=== PATIENT | male | born 1990 | race Caucasian/White ===

== ENCOUNTER 2017-08-20 09:32 | Inpatient (IN) | payer BC ==
--- NOTE | 2017-08-14 17:15 | Pre-op HX & Phy Repo 2 SIG ---
DATE OF ADMISSION: 08/20/2017 HISTORY: The patient is a 26-year-old male in overall good health with a malfunctioning Gladys ileostomy. The patient developed ulcerative colitis at age 16 in approximately 2006. In 2013, he underwent total colectomy with ileoanal J-pouch procedure in three stages. He had failed all medications to try and resolve his ulcerative colitis. With the J-pouch he had chronic severe pouchitis and on 11/14/2016 at [facility] underwent laparotomy with resection of his J-pouch and creation of a Gladys ileostomy. The preoperative diagnosis was Crohn's disease of the pouch, but pathology report clearly stated there was no evidence for Crohn's disease and that the diagnosis was chronic active pouchitis. The entire small intestine was normal at that surgery. The patient has been having marked difficulty dealing with his ileostomy despite working with [facility] nurses. He has frequent episodes of leaks with breaking of the seal. He feels very isolated having to deal with this problem. The patient is a good candidate to undergo surgery to convert his malfunctioning conventional ileostomy to a Stoll continent intestinal reservoir. PAST MEDICAL HISTORY: MEDICATIONS: None. ALLERGIES: Morphine causes rash, Lomotil, fentanyl, and Toradol. OPERATIONS: In addition to the above, he has undergone tonsillectomy. REVIEW OF SYSTEMS: The patient has a history of panic attacks in the past. PHYSICAL EXAMINATION: GENERAL: He is 5 feet 11 inches, 170 pounds. He is arriving from out of town and will be examined upon arrival and dictated separately. IMPRESSION: 1. Malfunctioning Gladys ileostomy. 2. History of ulcerative colitis. 3. Status post multiple abdominal operations. 3.1. Total colectomy with ileoanal J-pouch in 2013 with temporary ileostomy for one year before closure. 3.2. Resection of failed J-pouch with abdominoperineal proctectomy and creation of Gladys ileostomy november 14, 2016 3.3. Laparotomy with abdominal washout and evacuation of rectus hematoma from drain placed at 11/14/2016 surgery with this operation performed on 11/21/2016. The drain had penetrated a branch of the inferior epigastric artery and bled when it was removed. PLAN: The patient will be admitted and undergo insertion of a dual lumen PICC line, bowel prep with concomitant intravenous hydration and preparation for surgery with intravenous antibiotics started the night before surgery and preoperative subcutaneous heparin. I have had a full discussion with the patient regarding the nature of the surgery including creation of a Stoll continent intestinal reservoir with temporary catheter gastrostomy, indications, alternatives, options, and risks. I have discussed the general risks of surgery including bleeding, infection, adhesions that could lead to bowel obstruction requiring additional surgery, injury to adjacent structures or organs, deep vein thrombosis despite prophylaxis, anesthetic reactions, etc. I have also discussed the specific risks of the Stoll procedure including the risk of slipped valve or fistula of pouch or valve or other issues with the pouch or stoma that could require revision surgery. I will have another detailed discussion in person when the patient arrives from out of town and all questions will be answered. Rolando Webb M.D. DR: SARA JOB#: [id number] CC: MARIZA
[~2017-08-20] VITALS: Ht 180.3 cm; Wt 77.1 kg
[2017-08-20 10:07] VITALS: BP 124/82
[2017-08-20 11:02] LABS: BASOPHILS % (AUTO) 1.1 % (0.0-2.0); EOSINOPHILS % (AUTO) 3.2 % (0.0-3.0); HEMATOCRIT 35.5 % (42.0-52.0); HEMOGLOBIN 11.5 G/DL (14.2-18.0); LYMPHOCYTES % (AUTO) 22.7 % (20.0-45.0); MEAN CORPUSCULAR VOLUME 87 FL (80-99); MONOCYTES % (AUTO) 7.2 % (1.0-10.0); NEUTROPHILS % (AUTO) 65.7 % (45.0-75.0); PLATELET COUNT 314 K/UL (150-450); RED CELL DISTRIBUTION WIDTH 13.2 % (11.6-14.8); WHITE BLOOD COUNT 5.8 K/UL (4.8-10.8)
[2017-08-20 11:12] LABS: ANION GAP 7 mmol/L (5-15); BLOOD UREA NITROGEN 7 mg/dL (7-18); CALCIUM 8.9 MG/DL (8.5-10.1); CARBON DIOXIDE 28 MMOL/L (21-32); CHLORIDE 105 MMOL/L (98-107); CREATININE 0.8 MG/DL (0.55-1.30); POTASSIUM 3.7 MMOL/L (3.5-5.1); SODIUM 139 MMOL/L (136-145)
[2017-08-20 11:22] LABS: INR 0.9 (0.9-1.1)
[2017-08-20 11:31] LABS: ALANINE AMINOTRANSFERASE 93 U/L (12-78); ALBUMIN 3.7 G/DL (3.4-5.0); ALBUMIN/GLOBULIN RATIO 1.2 (1.0-2.7); ALKALINE PHOSPHATASE 118 U/L (46-116); ASPARTATE AMINO TRANSFERASE 39 U/L (15-37); BILIRUBIN,TOTAL 0.3 MG/DL (0.2-1.0); FERRITIN 9 NG/ML (8-388)
[2017-08-20 11:42] VITALS: BP 114/80
[2017-08-20 11:43] LABS: % IRON SATURATION 7 % (15-50); IRON 30 ug/dL (50-175); TOTAL IRON BINDING CAPACITY 432 ug/dL (250-450)
[2017-08-20] MEDS: Neomycin Sulfate 500mg Tab ORAL SCH ×3 (11:57→19:57)
[2017-08-20] MEDS ORDERED: Heparin 2000 units/Ns 1000ml IV SCH (12:00)
[2017-08-20] MEDS ORDERED: Lidocaine 1% Plain 30 ml INJ SCH (12:00)
--- NOTE | 2017-08-20 12:43 | Anethesia Preoperative Eval ---
Anesthesia Pre-op PMH/ROS General Date of Evaluation: August 20, 2017 Time of Evaluation: 14:40 Anesthesiologist: Tommie ASA Score: ASA 2 Mallampati Score Class I : Soft palate, uvula, fauces, pillars visible Class II: Soft palate, uvula, fauces visible Class III: Soft palate, base of uvula visible Class IV: Only hard plate visible Mallampati Classification: Class I Surgeon: Jon Diagnosis: Failed Gladys Ileostomy Surgical Procedure: Stoll Cntinent Ileostomy Anesthesia History: none Family History: no anesthesia problems Allergies: Coded Allergies: ATROPINE (Verified Allergy, Unknown, 08/20/17) DIPHENOXYLATE (Verified Allergy, Unknown, 08/20/17) FENTANYL (Verified Allergy, Unknown, 08/20/17) KETOROLAC (Verified Allergy, Unknown, 08/20/17) MORPHINE (Verified Adverse Reaction, Unknown, rash, 08/20/17) Medications: see eMAR Past Medical History Gastrointestinal/Genitourinary: Reports: other - Crohns Disease, Colitis Hematology/Immune: Reports: anemia PSxH Narrative: 1. Malfunctioning Gladys ileostomy. 2. History of ulcerative colitis. 3. Status post multiple abdominal operations. 3.1. Total colectomy with ileoanal J-pouch in 2013. 3.2. Resection of failed J-pouch with abdominoperineal proctectomy and creation of Gladys ileostomy. The proximal small bowel was normal. 3.3. Laparotomy with abdominal washout and evacuation of rectus hematoma from drain placed at 11/14/2016 surgery with this operation performed on 11/21/2016. The drain had penetrated a branch of the inferior epigastric artery. Anesthesia Pre-op Phys. Exam Physician Exam Last Vital Signs Date Time Temp Pulse Resp B/P (MAP) Pulse Ox O2 Delivery O2 Flow Rate FiO2 08/20/17 11:42 97.7 72 16 114/80 97.7 08/20/17 10:07 100 Room Air Constitutional: NAD Neurologic: CN 2-12 intact Cardiovascular: RRR Respiratory: CTA Gastrointestinal: S/NT/ND Airway Exam Mallampati Score: Class I MO: full ROM: full Teeth: intact Anesthesia Pre-op A/P Labs Hematology Test 08/20/17 10:35 White Blood Count 5.8 K/UL (4.8-10.8) Red Blood Count 4.10 M/UL (4.70-6.10) L Hemoglobin 11.5 G/DL (14.2-18.0) L Hematocrit 35.5 % (42.0-52.0) L Mean Corpuscular Volume 87 FL (80-99) Mean Corpuscular Hemoglobin 28.1 PG (27.0-31.0) Mean Corpuscular Hemoglobin Concent 32.5 G/DL (32.0-36.0) Red Cell Distribution Width 13.2 % (11.6-14.8) Platelet Count 314 K/UL (150-450) Mean Platelet Volume 7.0 FL (6.5-10.1) Neutrophils (%) (Auto) 65.7 % (45.0-75.0) Lymphocytes (%) (Auto) 22.7 % (20.0-45.0) Monocytes (%) (Auto) 7.2 % (1.0-10.0) Eosinophils (%) (Auto) 3.2 % (0.0-3.0) H Basophils (%) (Auto) 1.1 % (0.0-2.0) Coagulation Test 08/20/17 10:35 Prothrombin Time 9.5 SEC (9.30-11.50) Prothromb Time International Ratio 0.9 (0.9-1.1) Activated Partial Thromboplast Time 25 SEC (23-33) Chemistry Test 08/20/17 10:35 Sodium Level 139 MMOL/L (136-145) Potassium Level 3.7 MMOL/L (3.5-5.1) Chloride Level 105 MMOL/L (98-107) Carbon Dioxide Level 28 MMOL/L (21-32) Anion Gap 7 mmol/L (5-15) Blood Urea Nitrogen 7 mg/dL (7-18) Creatinine 0.8 MG/DL (0.55-1.30) Estimat Glomerular Filtration Rate > 60 mL/min (>60) Glucose Level 98 MG/DL (74-106) Calcium Level 8.9 MG/DL (8.5-10.1) Iron Level 30 ug/dL (50-175) L Total Iron Binding Capacity 432 ug/dL (250-450) Percent Iron Saturation 7 % (15-50) L Unsaturated Iron Binding 402 ug/dL (112-346) H Ferritin 9 NG/ML (8-388) Total Bilirubin 0.3 MG/DL (0.2-1.0) Aspartate Amino Transf (AST/SGOT) 39 U/L (15-37) H Alanine Aminotransferase (ALT/SGPT) 93 U/L (12-78) H Alkaline Phosphatase 118 U/L (46-116) H Total Protein 6.9 G/DL (6.4-8.2) Albumin 3.7 G/DL (3.4-5.0) Globulin 3.2 g/dL Albumin/Globulin Ratio 1.2 (1.0-2.7) Vitamin B12 Level 385 PG/ML (193-986) Folate 11.3 NG/ML (8.6-58.9) Risk Assessment & Plan Assessment: ASA 2 Plan: GA Status Change Before Surgery: No Pre-Antibiotics Drug: Elian Mcknight MD August 20, 2017 12:43
--- NOTE | 2017-08-20 14:21 | Diagnostic Imaging Report ---
Indication: Cough Comparison: None A single view chest radiograph was obtained. Findings: Cardiomediastinal appearance is within normal limits for age. Pulmonary vascularity is appropriate. The diaphragmatic contour is smooth and costophrenic angles are sharp. No pleural effusions are identified. The bones are unremarkable. Impression: No acute findings
--- NOTE | 2017-08-20 14:26 | Diagnostic Imaging Report ---
Indication: keno terminal operator venous access Findings: After the indications, procedure, risks, complications, and alternatives of the procedure were explained, written informed consent was obtained. The right upper extremity was prepped with alcohol. All elements of maximal sterile barrier technique were followed including usage of a cap, mask, sterile gown, sterile gloves, hand hygiene and a large sterile sheet. Sonographic evaluation of the upper extremity was performed demonstrating a patent and compressible basilic vein. Access was obtained under real-time ultrasound guidance (with utilization of sterile gel and sterile probe cover) and digital image was saved and archived. An .018 wire was introduced. Needle exchanged for a 5 Palestinian peel-away sheath. Measurements were obtained. A 5 Palestinian dual-lumen Power PICC line catheter was cut to 35 cm and introduced over the wire. Peel-away sheath and wire were removed.Catheter was secured to the skin using 2-0 Prolene suture. Both ports aspirate and flush easily. Fluoroscopic images show distal tip in the superior vena cava. Total fluoroscopic time 0.2 minutes. Impression: Successful placement of an upper extremity PICC line catheter
[2017-08-20] MEDS ORDERED: Vitamin B12 1000mcg/ml Inj IM SCH (15:00)
[2017-08-20] MEDS ORDERED: LORazepam 1mg tab SL SCH (15:00)
--- NOTE | 2017-08-20 16:00 | General Progress Note ---
Progress Note Progress Note H&P dictated. Anemic with Hgb 11.5 and iron 30 (50-175), ferritin 30(8-388) B12 385 Folate 11.3 (8.6-58.9). slight elevation of lfts - advised re possible liver biopsy in surgery BMP - wnl with BUN 7 Cr 0.[address] and will start IV hydration now Full discussion with patient and his mother re his allergies and pain control post-op, nature of surgery and risks. All questions answered LAILA HWANG August 20, 2017 16:00
[2017-08-20 16:04] VITALS: BP 121/73
[2017-08-20] MEDS: D5 1/2NS w/KCl 20mEq 1,000 ML IV SCH (16:09)
[2017-08-20 18:50] LABS: APPEARANCE,URINE CLEAR; BILIRUBIN, URINE NEGATIVE (NEGATIVE); COLOR,URINE PALE YELLOW; GLUCOSE, URINE (UA) NEGATIVE (NEGATIVE); KETONES,URINE NEGATIVE (NEGATIVE); LEUKOCYTE ESTERASE ,URINE NEGATIVE (NEGATIVE); NITRITE,URINE NEGATIVE (NEGATIVE); PH,URINE 6 (4.5-8.0); PROTEIN,URINE NEGATIVE (NEGATIVE); UROBILINOGEN,URINE NORMAL MG/DL (0.0-1.0)
[2017-08-20] MEDS: LORazepam 1mg tab SL PRN (19:58)
[2017-08-20] MEDS: Dyna-Hex 2% Top Sol 2oz TOPIC SCH (19:58)
[2017-08-20 20:00] VITALS: BP 126/68
[2017-08-20] MEDS: Zolpidem 5mg tab ORAL PRN (21:08)
[2017-08-21] VITALS (16 sets, daily range): BP systolic 107–160; BP diastolic 57–81
[2017-08-21] MEDS: D5 1/2NS w/KCl 20mEq 1,000 ML IV SCH ×2 (04:31→14:00)
[2017-08-21] MEDS: LORazepam 1mg tab SL PRN ×2 (04:58→16:06)
[2017-08-21] MEDS: Ampicillin/Sulbactam Sod 3 GM in NS 110 ML IV SCH ×6 (05:29→23:58)
[2017-08-21] MEDS ORDERED: Heparin 5000 units/ml inj SUBQ SCH (05:30)
[2017-08-21] MEDS ORDERED: Lidocaine 1% MPF 10mg/ml 5ml ONE (06:58)
[2017-08-21] MEDS ORDERED: Propofol 200mg/20ml IV ONE ×2 (06:58→08:55)
[2017-08-21] MEDS ORDERED: fentaNYL 100 mcg/2 mL IV ONE ×3 (06:59→11:00)
[2017-08-21] MEDS ORDERED: Midazolam 2mg/2ml Inj ONE ×2 (06:59→12:54)
[2017-08-21] MEDS ORDERED: Bacitracin 50000 Units Vial ONE (07:06)
[2017-08-21] MEDS ORDERED: NeoSporin Gu Irrig 1ml Amp IRRIG ONE (07:12)
--- NOTE | 2017-08-21 07:19 | Pre-Procedure Note/Attestation ---
Pre-Procedure Note/Attestation Complete Prior to Procedure Planned Procedure: not applicable Procedure Narrative: Stoll Continent Intestinal [place], gastrostomy Indications for Procedure Pre-Operative Diagnosis: malfunctioning Gladys ileostomy Attestation I attest that I discussed the nature of the procedure; its benefits; risks and complications; and alternatives (and the risks and benefits of such alternatives ), prior to the procedure, with the patient (or the patient's legal claim service representative). I attest that, if there was a reasonable possibility of needing a blood transfusion, the patient (or the patient's legal claim service representative) was given the [facility] standardized written summary, pursuant to the Rk Leida Blood Safety Act ([place] Health and Safety Code # 1645, as amended). I attest that I re-evaluated the patient just prior to the surgery and that there has been no change in the patient's H&P, except as documented below: none LAILA HWANG August 21, 2017 07:19
[2017-08-21] MEDS ORDERED: NS Irrig 1000ml ONE (07:30)
[2017-08-21] MEDS ORDERED: Sterile Water Irrig 1000ml IRRIG ONE (07:30)
[2017-08-21] MEDS ORDERED: LR 1000ml ONE (07:30)
[2017-08-21] MEDS ORDERED: LR 1000ml 1,000 ML IVLG SCH (08:35)
[2017-08-21] MEDS ORDERED: Midazolam 2mg/2ml Inj IVP PRN (08:45)
[2017-08-21] MEDS ORDERED: Meperidine 50mg/ml Inj(FOR RIGORS ONLY) IV PRN (08:45)
[2017-08-21] MEDS ORDERED: DiphenhydrAMINE 50mg/ml Inj IVP PRN ×2 (08:45→13:30)
[2017-08-21] MEDS ORDERED: Acetaminophen (Non formulary) 100 ML IV SCH (08:45)
[2017-08-21] MEDS ORDERED: Zemuron 50mg/5ml Inj IV ONE ×2 (08:56→11:30)
[2017-08-21] MEDS ORDERED: Glycopyrrolate 0.2mg/ml 1ml Vial ONE (09:03)
[2017-08-21] MEDS ORDERED: Sodium Chloride 10ml vial INJ ONE (09:43)
--- NOTE | 2017-08-21 09:46 | Pre-op HX & Phy Repo 2 SIG ---
DATE OF ADMISSION: 08/20/2017 DATE OF EXAMINATION: 08/20/2017 SUBJECTIVE: The patient has now arrived from out of town. Please see previously dictated history. OBJECTIVE: GENERAL: He is well developed and well nourished, in no distress. VITAL SIGNS: Within normal limits. He is 5 feet 11 inches, 170 pounds. HEENT: Within normal limits. LUNGS: Clear. HEART: Regular rhythm. BREASTS: Without masses. ABDOMEN: Soft and flat. There is a midline incision from just above the umbilicus to the pubis with a slightly wide scar and multiple parallel scars on each side from what the patient says were arelis. His stoma of his Gladys ileostomy is higher and more lateral than usual in the right lower quadrant. RECTAL: Status post proctectomy. GENITALIA: Within normal limits. EXTREMITIES: Without edema. Pulses 3+ femoral to pedal bilatera NEUROLOGIC: Physiologic. IMPRESSION: 1. Malfunctioning Gladys ileostomy. 2. History of ulcerative colitis. 3. STATUS POST MULTIPLE ABDOMINAL OPERATIONS: 3.1. Total colectomy with ileoanal J-pouch as a three-stage procedure 2013 3.2. Resection of failed J-pouch with abdominoperineal proctectomy and creation of Gladsy ileostomy, 11/14/2016. 3.3. Laparotomy with abdominal washout and evacuation of rectus hematoma, 11/21/2016. PLAN: I have had another detailed discussion with the patient and his mother regarding the nature of surgery. Indications, alternatives, options and risks and all questions have been answered. The patient understands and agrees to proceed. Rolando Webb M.D. DR: DONAVON JOB#: [id number] CC: MARIZA
--- NOTE | 2017-08-21 13:06 | Immediate Post-Op Evaluation ---
Immediate Post-Op Evalulation Immediate Post-Op Evalulation Procedure: Exploratory laparotomy creation of continent pouch Date of Evaluation: August 21, 2017 Time of Evaluation: 13:04 IV Fluids: 2200 Blood Products: none Estimated Blood Loss: 150 Urinary Output: 250 Blood Pressure Systolic: 141 Blood Pressure Diastolic: 62 Pulse Rate: 78 Respiratory Rate: 22 O2 Sat by Pulse Oximetry: 99 Temperature (Fahrenheit): 98.7 Pain Score (1-10): 3 Nausea: No Vomiting: No Complications none Patient Status: awake, patent, extubated, none Hydration Status: adequate MITCHELL RM M.D. August 21, 2017 13:06
--- NOTE | 2017-08-21 13:14 | Brief Operative Note ---
Immediate Post Operative Note Operative Note Pre-op Diagnosis: malfunctioning Gladys ileostomy Procedure: Stoll continent intestinal reservoir, gastrostomy Post-op Diagnosis: same Post-op Diagnosis: same as pre-op Findings: consistent w/pre-op dx studies Surgeon: mukesh Pick And Shovel Man: derick Anesthesiologist: jaden Anesthesia: general Specimen: yes - ileostomy stoma, bowel trimmings Complications: none Condition: stable Fluids: see anesthesia record Estimated Blood Loss: volume - 150cc Drains: other - 28 Stoll pouch, 18 gastrostomy, 1/2 inch david Implant(s) used?: No LAILA HWANG August 21, 2017 13:14
[2017-08-21] MEDS: PCA Morphine 1mg/ml 30 ML IV PRN ×2 (13:25→17:05)
[2017-08-21] MEDS ORDERED: Rate Change PCA 1 Each MISC PRN (13:30)
[2017-08-21] MEDS ORDERED: Naloxone 0.4mg/ml Inj IVP PRN (13:30)
[2017-08-21] MEDS ORDERED: Meperidine 50mg/ml Inj(FOR RIGORS ONLY) ONE (14:07)
[2017-08-21] MEDS: D5 1/4NS w/KCl 20mEq 1,000 ML IV SCH ×2 (15:57→23:58)
--- NOTE | 2017-08-21 16:03 | General Progress Note ---
Progress Note Progress Note Awake and alert, c/o pain despite MS SOUND EFFECTS PERSON - due for next dose of IV Tylenol 1gm q8h x 3 days in 1 hour VSS with mild tachycardia Dressing dry Catheters patent Imp: LAILA Hopkins August 21, 2017 16:03
[2017-08-21] MEDS ORDERED: PCA Education Pamphlet MISC SCH (17:00)
[2017-08-21] MEDS: Acetaminophen (Non formulary) 100 ML IV SCH (17:14)
[2017-08-21] MEDS ORDERED: Morphine Sulfate 4mg/ml Inj SUBQ PRN (18:30)
[2017-08-21] MEDS ORDERED: Tubing IV Secondary IV ONE (18:53)
[2017-08-21] MEDS: PCA shift volume MISC SCH (19:23)
--- NOTE | 2017-08-21 19:30 | Operative Note - Dictated ---
DATE OF OPERATION: 08/21/2017 SURGEON: Rolando Webb M.D. TALCER SURGEON: Carrillo Neal M.D. ANESTHESIOLOGIST: Harpreet Dubon M.D. TYPE OF ANESTHESIA: General endotracheal. PREOPERATIVE DIAGNOSES: 1. Malfunctioning Gladys ileostomy. 2. History of ulcerative colitis. 3. Status post multiple abdominal operations. 3.1. Total colectomy with ileoanal J-pouch in 2013 as a 3-stage procedure over 1 year. 3.2. Resection of failed J-pouch with abdominoperineal proctectomy and creation of Gladys ileostomy on November 14, 2016 at [facility] 3.3. Laparotomy with abdominal washout and evacuation of rectus hematoma related to drain site bleeding on November 21, 2016 at [facility] POSTOPERATIVE DIAGNOSES: 1. Malfunctioning Gladys ileostomy. 2. History of ulcerative colitis. 3. Status post multiple abdominal operations. 3.1. Total colectomy with ileoanal J-pouch in 2013 as a 3-stage procedure over 1 year. 3.2. Resection of failed J-pouch with abdominoperineal proctectomy and creation of Gladys ileostomy on November 14, 2016 at [facility] 3.3. Laparotomy with abdominal washout and evacuation of rectus hematoma related to drain site bleeding on November 21, 2016 at [facility] OPERATION PERFORMED: Stoll continent intestinal reservoir and temporary catheter gastrostomy. DESCRIPTION OF PROCEDURE: The patient was taken to the operating room and under general endotracheal anesthesia with sequential compression device stockings and De Leon catheter in place and having received intravenous antibiotics and preoperative subcutaneous heparin, the patient was prepped and draped in the usual fashion. Previous midline incision was reopened from above the umbilicus to the pubis excising part of the scar that was wide. There were only mild adhesions to the undersurface of the abdominal wall from an omental remnant that was left in place and from small bowel loops. the omental remnant was mobilized from the pelvis and some of it resected ligating with #0 silk. The bowel loops were all then mobilized out of the pelvis without difficulty leading to the ileostomy which was above the level of the umbilicus and lateral to the rectus sheath on the right side of the abdomen. Palpating just inferior to the stoma and the undersurface of the abdominal wall, there was obvious retained mesh placed likely at the time of ileostomy creation. It was completely incorporated and just inferior to the stoma itself, and it was left in situ. The small bowel was run from the stoma to the ligament of Treitz and all adhesions taken down. The bowel was completely normal and he had an abundance of small bowel loops of both jejunum and ileum. The ileostomy was dismantled with a transversely oriented elliptical incision and brought into the abdominal cavity. The fascia was closed with interrupted inverted #0 Prolene in transverse orientation and then a Betadine-soaked Ray-Za placed into the subcutaneous tissues. Tracing the bowel proximal from the stoma approximately 1.5 to 2 feet was a Meckel's diverticulum with a very wide opening that had been left in place by all those previous surgeons and there was no indication to remove it. Proximal to that was an enteroenterostomy from prior surgery. Both these factors meant that we could not create the Stoll pouch from the most distal ileum. I went proximal to the prior enteroenterostomy and divided the bowel at that point with the distal end subsequently to be anastomosed to the proximal small bowel after the pouch was created and the distal part where the ileostomy was, to be attached to the pouch enterotomy. Now having divided the bowel and creating what would be the end of the collar segment, the JENNIFER staple line was imbricated with 3-0 silk. 12 cm proximal was marked for the collar segment. Then 15 cm proximal to this was marked for the pouch. Then two adjacent 15-cm loops of small bowel were placed side by side and with appropriately located enterotomies, using the JENNIFER 75 with several applications, the ileal reservoir was created. The staple line was everted and one defect was closed with continuous locking 2-0 chromic followed by imbricating 3-0 silk. The mucosal aspect was carefully inspected and bleeders were controlled with medium Hemoclips and cautery and some 3-0 silk [id number] suture ligatures. A 3-0 silk was placed at the apex of the pouch staple line. Then a chromic marker was placed at the junction of the afferent bowel and the pouch, and 12 cm proximal marked for the valve segment. A 2-fingerbreadth mesenteric hiatus was created here ligating vessels with 3-0 silk. The abdominal wall thickness measured 4 cm. The appropriate length access segment was measured and marked and preserving two good vessels to the access segment, the bowel was divided proximal with the JENNIFER stapling device and the mesentery divided to its base ligating vessels with 3-0 silk. Now, the staple line that was to become the stoma was excised and attention directed to creating the nipple valve. The peritoneum was stripped on each side of the valve segment mesentery and the serosa scarified with cautery. Then with gradual intussusception, a 5.0 cm long valve was created with orientation confirmed with the Stroud suction. Using the PI 55 stapling device with 4.8 mm arelis, two rows were placed 90 degrees away from the mesentery on each side. 3-0 silk sutures were placed between the access segment and the pouch on each side of its mesentery and then the PI 55 stapling device was fired again to staple the valve to the anterior pouch wall. Additional 3-0 silk sutures were placed between the access segment and the pouch. The end of the collar was brought through the mesenteric hiatus and wrapped around the outside of the valve segment with the collar sutured to the access segment, to itself, and to the pouch with multiple interrupted 3-0 silk sutures. Now, the prior ileostomy was excised dividing the 3cm long segment of bowel with the JENNIFER stapling device ligating mesentery vessels with 3-0 silk and 3-0 Vicryl. Intestinal continuity was restored between the proximal bowel and the proximal end of the segment with the enteroenterostomy and Meckel diverticulum. A JENNIFER stapled [id number], functional end-to-end anastomosis was created closing the enterotomy with the JENNIFER. The mesenteric defect was closed with 3-0 silk. Now the distal-most bowel ending in the original ileostomy which had been excised was placed adjacent to the pouch enterotomy with a very short blind end. A [id number] anastomosis was created with an outer layer posteriorly of interrupted 3-0 silk, then the proximal bowel opened and then full-thickness 2-0 chromic continuous locking suture, completing the anastomosis with an outer layer of 3-0 silk. The end of the collar and the end of this bowel loop were sutured together with 3-0 silk. A 28-Rwandan De Leon catheter went directly into the pouch and the afferent bowel was manually occluded. The pouch was distended with 120 mL of saline. Upon removal of the catheter, the pouch was seen to be completely continent. The catheter was reintroduced and the pouch decompressed. The operative field was carefully inspected and hemostasis was secured. The liver and gallbladder were normal to inspection and palpation. The bladder and ureters were protected throughout the procedure. The pouch lay nicely in the pelvis with the small bowel loops replaced anatomically. At a previously marked site low in the right lower quadrant, a 2.5 cm narrow ellipse of skin was excised in transverse orientation and a cruciate incision made in the rectus fascia. A two-fingerbreadth abdominal wall hiatus was created. The posterior pouch was sutured to the peritoneum with 3-0 Vicryl sutures. Then, the stoma and access segment with its mesentery brought through the abdominal wall which just reached the skin without tension. The stoma was primarily matured with continuous 2-0 chromic locking suture starting at the 3 and 9 o'clock positions. A very satisfactory stoma was achieved. The 28-Rwandan De Leon catheter was appropriately positioned at the apex of the pouch and marked at the level of the stoma with 3-0 silk and then the catheter sutured to the skin with two sutures of 2-0 silk. The catheter was flushed and connected to a gravity drainage bag. Throughout the procedure, antibiotic-soaked laps protected the incision and there were frequent changes of gloves and a Nicolas retractor was used. The pouch and anastomosis were inspected and there was good perfusion and everything was secure. A half-inch Chao drain was placed into the pelvis through a stab incision just inferior to the stoma and sutured to the skin with 3-0 silk. Through a separate stab incision in the left upper quadrant, an 18-Rwandan De Leon catheter was brought through the abdominal wall and placed into the stomach anterior body greater curve between two concentric 2-0 chromic pursestring sutures with the balloon inflated and positioned in the fundus and the stomach sutured to the anterior abdominal wall with multiple interrupted 3-0 silk sutures. The catheter was sutured to the skin with a 2-0 silk suture and the catheter was then flushed and connected to a gravity drainage bag. After ascertaining that hemostasis was secure, the midline incision was closed in one layer with continuous #1 Prolene starting at both ends and inverting the knots. Subcutaneous tissues of the midline incision and the prior ileostomy takedown incision were irrigated with antibiotic solution and the incisions were closed with arelis. Dry sterile dressings were applied. The patient tolerated the procedure well and left the operating room in good condition. Final sponge and needle counts were correct. Rolando Webb M.D. DR: Jay JOB#: [id number] CC: MARIZA
[2017-08-21] MEDS ORDERED: LORazepam 1mg tab SL PRN (21:00)
[2017-08-21] MEDS: Dyna-Hex 2% Top Sol 2oz TOPIC SCH (21:22)
[2017-08-21] MEDS: Iron Sucrose 100 MG in NS 55 ML IV SCH (21:22)
[2017-08-22] VITALS: BP 148/91
[2017-08-22] MEDS: Acetaminophen (Non formulary) 100 ML IV SCH ×3 (01:33→17:06)
[2017-08-22] MEDS: PCA Morphine 1mg/ml 30 ML IV PRN ×5 (02:15→19:07)
[2017-08-22 04:00] VITALS: BP 144/86
[2017-08-22] MEDS: Morphine Sulfate 4mg/ml Inj IVP PRN ×6 (05:10→17:33)
[2017-08-22] MEDS: Ampicillin/Sulbactam Sod 3 GM in NS 110 ML IV SCH ×3 (05:11→18:50)
[2017-08-22 05:26] LABS: BASOPHILS % (AUTO) 0.5 % (0.0-2.0); EOSINOPHILS % (AUTO) 0.4 % (0.0-3.0); HEMOGLOBIN 10.7 G/DL (14.2-18.0); LYMPHOCYTES % (AUTO) 8.8 % (20.0-45.0); MEAN CORPUSCULAR VOLUME 86 FL (80-99); MONOCYTES % (AUTO) 7.8 % (1.0-10.0); NEUTROPHILS % (AUTO) 82.5 % (45.0-75.0); PLATELET COUNT 280 K/UL (150-450); RED BLOOD COUNT 3.82 M/UL (4.70-6.10); RED CELL DISTRIBUTION WIDTH 13.7 % (11.6-14.8)
[2017-08-22 05:34] LABS: ANION GAP 6 mmol/L (5-15); BLOOD UREA NITROGEN 5 mg/dL (7-18); CALCIUM 7.8 MG/DL (8.5-10.1); CARBON DIOXIDE 29 MMOL/L (21-32); CHLORIDE 104 MMOL/L (98-107); CREATININE 0.8 MG/DL (0.55-1.30); POTASSIUM 3.5 MMOL/L (3.5-5.1); SODIUM 139 MMOL/L (136-145)
[2017-08-22] MEDS: PCA shift volume MISC SCH ×2 (07:18→19:00)
[2017-08-22] MEDS: D5 1/4NS w/KCl 20mEq 1,000 ML IV SCH ×2 (07:44→16:07)
[2017-08-22 08:00] VITALS: BP 147/91
[2017-08-22] MEDS: LORazepam 1mg tab SL PRN ×3 (08:14→16:04)
--- NOTE | 2017-08-22 08:18 | General Progress Note ---
Progress Note Progress Note AVSS with tachycardia 109. Pain control only moderate with BLOOD BANK CUSTODIAN MS basal 1mg/hr + needing breakthrough dosing q3h and Ativan sublingual q4h Fair IS effort Chest decreased expansion, Cor - reg rhythm Abdomen soft, mild distention, incisions clean, stoma pink, david-serosang moderate amount Outputs overnight 12hrs: urine 1700 Gastrostomy 140 bilious BCIR ileo 135 serosang WBC 14,000 Hgb 10.7 (11.5 pre-op) BUN 5 Cr 0.8 Imp. Ileus Atelectasis Pain Plan; Increase BLOOD BANK CUSTODIAN basal to 2mg/hr continue IV Tylenol 1gm q8h x 3 days NPO mobilize out of bed f/u labs Rolando Webb MD August 22, 2017 08:18
[2017-08-22] MEDS ORDERED: Naloxone 0.4mg/ml Inj IVP PRN (08:30)
[2017-08-22] MEDS ORDERED: Rate Change PCA 1 Each MISC PRN (08:30)
[2017-08-22] MEDS ORDERED: NS 500ML ONE (10:23)
[2017-08-22] MEDS ORDERED: Tubing IV Secondary IV ONE (10:23)
[2017-08-22] MEDS ORDERED: NS Irrig 1000ml ONE (10:23)
[2017-08-22] MEDS ORDERED: NS 275ml ONE (10:23)
--- NOTE | 2017-08-22 10:52 | 48 Hour Post Anesthesia Eval ---
Post Anesthesia Evaluation Procedure: Exploratory laparotomy creation of continent pouch Date of Evaluation: August 22, 2017 Time of Evaluation: 10:51 Blood Pressure Systolic: 142 0: 86 Pulse Rate: 76 Respiratory Rate: 22 Temperature (Fahrenheit): 97.9 O2 Sat by Pulse Oximetry: 98 Airway: patent Nausea: No Vomiting: No Pain Intensity: 4 Hydration Status: adequate Cardiopulmonary Status: stable Mental Status/LOC: patient returned to baseline Follow-up Care/Observations: n/a Post-Anesthesia Complications: none Follow-up care needed: N/A Harpreet Dubon MD August 22, 2017 10:52
[2017-08-22 12:00] VITALS: BP 145/91
[2017-08-22] MEDS ORDERED: PCA Morphine 1mg/ml 30 ML IV PRN (13:30)
[2017-08-22 16:00] VITALS: BP 148/94
[2017-08-22] MEDS: DiphenhydrAMINE 50mg/ml Inj IVP PRN (19:11)
[2017-08-22 20:00] VITALS: BP 138/87
[2017-08-22] MEDS: Dyna-Hex 2% Top Sol 2oz TOPIC SCH (20:00)
[2017-08-22] MEDS: Iron Sucrose 100 MG in NS 55 ML IV SCH (20:36)
[2017-08-23] VITALS: BP 134/91
[2017-08-23] MEDS: D5 1/4NS w/KCl 20mEq 1,000 ML IV SCH ×4 (00:12→23:30)
[2017-08-23] MEDS: Morphine Sulfate 4mg/ml Inj IVP PRN ×8 (00:18→20:48)
[2017-08-23] MEDS: Ampicillin/Sulbactam Sod 3 GM in NS 110 ML IV SCH ×5 (00:19→23:30)
[2017-08-23] MEDS: PCA Morphine 1mg/ml 30 ML IV PRN ×5 (01:04→20:13)
[2017-08-23] MEDS: LORazepam Inj 2mg/ml 1ml IV PRN ×7 (01:09→23:30)
[2017-08-23 04:00] VITALS: BP 134/86
[2017-08-23 06:17] LABS: BASOPHILS % (AUTO) 0.6 % (0.0-2.0); EOSINOPHILS % (AUTO) 1.3 % (0.0-3.0); HEMATOCRIT 31.7 % (42.0-52.0); HEMOGLOBIN 10.1 G/DL (14.2-18.0); LYMPHOCYTES % (AUTO) 9.3 % (20.0-45.0); MEAN CORPUSCULAR VOLUME 88 FL (80-99); NEUTROPHILS % (AUTO) 79.8 % (45.0-75.0); PLATELET COUNT 250 K/UL (150-450); RED BLOOD COUNT 3.61 M/UL (4.70-6.10); RED CELL DISTRIBUTION WIDTH 13.7 % (11.6-14.8); WHITE BLOOD COUNT 15.7 K/UL (4.8-10.8)
[2017-08-23 06:18] LABS: ALANINE AMINOTRANSFERASE 26 U/L (12-78); ALBUMIN 2.7 G/DL (3.4-5.0); ALBUMIN/GLOBULIN RATIO 0.8 (1.0-2.7); ALKALINE PHOSPHATASE 75 U/L (46-116); ANION GAP 5 mmol/L (5-15); ASPARTATE AMINO TRANSFERASE 19 U/L (15-37); BILIRUBIN,TOTAL 0.4 MG/DL (0.2-1.0); BLOOD UREA NITROGEN 3 mg/dL (7-18); CALCIUM 8.3 MG/DL (8.5-10.1); CARBON DIOXIDE 30 MMOL/L (21-32); CHLORIDE 102 MMOL/L (98-107); CREATININE 0.7 MG/DL (0.55-1.30); POTASSIUM 3.4 MMOL/L (3.5-5.1); SODIUM 137 MMOL/L (136-145)
[2017-08-23] MEDS: PCA shift volume MISC SCH ×2 (07:00→19:00)
[2017-08-23 08:14] VITALS: BP 136/88
--- NOTE | 2017-08-23 08:37 | General Progress Note ---
Progress Note Progress Note AVSS with tachycardia to 130 at times with good BP.(he states he has rapid heart beat at home chronically) IS effort is better getting to 1500ml (4000 pre -op) Chest clear without congestion Cor - reg rhythm Abdomen mild soft distention, incisions clean, stoma pink, david serous mod. amount Urine 3870 Gastrostomy - neg - bilious output this AM BCIR ileo - 160 serosang WBC up 15,700 Hgb 10.1 (down slightly) K 3.4 Albumin 2.7 LFTs are now all normal Imp. Atelectasis Ileus Diuresing Plan; STAT portable upr CXR Mobilize for ambulation today as pain is better controlled Continue De Leon (pelvic dissection + diuresing) NPO, continue IV antibiotics and Venofer f/u labs Rolando Webb MD August 23, 2017 08:37
[2017-08-23] MEDS ORDERED: Rate Change PCA 1 Each MISC PRN (09:15)
[2017-08-23] MEDS ORDERED: Naloxone 0.4mg/ml Inj IVP PRN (09:15)
[2017-08-23] MEDS: Acetaminophen (Non formulary) 100 ML IV SCH ×2 (09:17→16:49)
--- NOTE | 2017-08-23 10:35 | Diagnostic Imaging Report ---
Indication: Cough Comparison: 08/20/2017 A single view chest radiograph was obtained. Findings: The lungs remain clear. Heart size is normal. PICC line is in good position unchanged. Small amount of free air noted under the right hemidiaphragm in keeping with recent abdominal surgery. IMPRESSION: No acute disease
[2017-08-23] MEDS: DiphenhydrAMINE 50mg/ml Inj IVP PRN ×3 (12:20→20:48)
[2017-08-23 12:47] VITALS: BP 132/81
[2017-08-23 16:00] VITALS: BP 130/83
[2017-08-23 20:00] VITALS: BP 130/83
[2017-08-23] MEDS: Dyna-Hex 2% Top Sol 2oz TOPIC SCH (20:10)
[2017-08-23] MEDS: Iron Sucrose 100 MG in NS 55 ML IV SCH (21:46)
[2017-08-24] VITALS: BP 131/86
[2017-08-24] MEDS: Zolpidem 5mg tab ORAL PRN ×2 (00:39→21:06)
[2017-08-24] MEDS: Morphine Sulfate 4mg/ml Inj IVP PRN ×7 (00:40→22:39)
[2017-08-24] MEDS: Acetaminophen (Non formulary) 100 ML IV SCH ×3 (00:50→18:00)
[2017-08-24] MEDS: DiphenhydrAMINE 50mg/ml Inj IVP PRN ×6 (01:02→23:33)
[2017-08-24] MEDS: PCA Morphine 1mg/ml 30 ML IV PRN ×4 (03:12→23:22)
[2017-08-24] MEDS ORDERED: LORazepam Inj 2mg/ml 1ml ONE (03:48)
[2017-08-24] MEDS: LORazepam Inj 2mg/ml 1ml IV PRN ×6 (03:55→23:47)
[2017-08-24 04:00] VITALS: BP 131/86
[2017-08-24 05:01] LABS: BASOPHILS % (AUTO) 0.6 % (0.0-2.0); EOSINOPHILS % (AUTO) 2.8 % (0.0-3.0); HEMATOCRIT 28.6 % (42.0-52.0); HEMOGLOBIN 9.5 G/DL (14.2-18.0); LYMPHOCYTES % (AUTO) 13.4 % (20.0-45.0); MEAN CORPUSCULAR VOLUME 87 FL (80-99); MONOCYTES % (AUTO) 9.1 % (1.0-10.0); NEUTROPHILS % (AUTO) 74.1 % (45.0-75.0); PLATELET COUNT 226 K/UL (150-450); RED BLOOD COUNT 3.31 M/UL (4.70-6.10); RED CELL DISTRIBUTION WIDTH 13.5 % (11.6-14.8)
[2017-08-24 05:11] LABS: ANION GAP 5 mmol/L (5-15); BLOOD UREA NITROGEN 5 mg/dL (7-18); CALCIUM 8.5 MG/DL (8.5-10.1); CARBON DIOXIDE 31 MMOL/L (21-32); CHLORIDE 103 MMOL/L (98-107); CREATININE 0.7 MG/DL (0.55-1.30); POTASSIUM 3.4 MMOL/L (3.5-5.1); SODIUM 139 MMOL/L (136-145)
[2017-08-24] MEDS: Ampicillin/Sulbactam Sod 3 GM in NS 110 ML IV SCH ×3 (05:56→18:01)
[2017-08-24] MEDS: PCA shift volume MISC SCH ×2 (07:00→19:30)
[2017-08-24 08:00] VITALS: BP 130/85
[2017-08-24] MEDS: D5 1/4NS w/KCl 20mEq 1,000 ML IV SCH (09:15)
[2017-08-24] MEDS ORDERED: Naloxone 0.4mg/ml Inj IVP PRN (09:34)
[2017-08-24] MEDS ORDERED: Rate Change PCA 1 Each MISC PRN (09:45)
[2017-08-24] MEDS ORDERED: HydrOXYzine tab 25 MG TAB ORAL SCH (09:54)
--- NOTE | 2017-08-24 09:59 | General Progress Note ---
Progress Note Progress Note Tmax 100.6 Tachycardia decreased BP stable. Ambulated in hallways twice yesterday. Still requesting maximum meds. Better IS effort with clear lungs Abdomen still mildly distended, incisions clean, stoma pink, david decreased serous Urine 4600 Gastrostomy 370 bilious BCIR ileo 100 serous WBC upsl944.6 Hgb 9.5 - receiving Venofer daily K 3.4 Imp.Ileus Atelectasis Plan: Ambulate with assistance 3x daily Add Atarax prn pruritus continue npo x po meds Increase IV KCL f/u labs continue De Leon and IV antibiotics with bowel open for prolonged time during surgery with likely mild peritonitis Patient also asked not to videotape RNs interactions/care although he is free to take notes, voice record, etc. RNs have a right to privacy. He indicated understanding Rolando Webb MD August 24, 2017 09:59
[2017-08-24] MEDS ORDERED: HydrOXYzine tab 25 MG TAB ORAL PRN (10:00)
[2017-08-24] MEDS: D5 1/2NS w/KCl 40meq 1000ml 1,000 ML IV SCH ×2 (10:49→20:30)
[2017-08-24 12:00] VITALS: BP 133/81
[2017-08-24 16:00] VITALS: BP 134/74
[2017-08-24 20:30] VITALS: BP 134/84
[2017-08-24] MEDS: Dyna-Hex 2% Top Sol 2oz TOPIC SCH (20:54)
[2017-08-24] MEDS: Iron Sucrose 100 MG in NS 55 ML IV SCH (20:54)
[2017-08-25] VITALS: BP 136/82
[2017-08-25] MEDS: Ampicillin/Sulbactam Sod 3 GM in NS 110 ML IV SCH ×5 (00:06→23:55)
[2017-08-25] MEDS: D5 1/2NS w/KCl 40meq 1000ml 1,000 ML IV SCH ×3 (00:06→23:54)
[2017-08-25] MEDS: Morphine Sulfate 4mg/ml Inj IVP PRN ×6 (03:46→23:55)
[2017-08-25] MEDS: DiphenhydrAMINE 50mg/ml Inj IVP PRN ×6 (03:46→23:55)
[2017-08-25 04:00] VITALS: BP 128/90
[2017-08-25 05:07] LABS: BASOPHILS % (AUTO) 0.8 % (0.0-2.0); EOSINOPHILS % (AUTO) 3.6 % (0.0-3.0); HEMATOCRIT 28.9 % (42.0-52.0); HEMOGLOBIN 9.4 G/DL (14.2-18.0); LYMPHOCYTES % (AUTO) 13.3 % (20.0-45.0); MEAN CORPUSCULAR VOLUME 86 FL (80-99); MONOCYTES % (AUTO) 8.9 % (1.0-10.0); NEUTROPHILS % (AUTO) 73.4 % (45.0-75.0); PLATELET COUNT 244 K/UL (150-450); RED BLOOD COUNT 3.34 M/UL (4.70-6.10); RED CELL DISTRIBUTION WIDTH 13.8 % (11.6-14.8); WHITE BLOOD COUNT 9.9 K/UL (4.8-10.8)
[2017-08-25 05:15] LABS: ANION GAP 7 mmol/L (5-15); BLOOD UREA NITROGEN 7 mg/dL (7-18); CALCIUM 8.5 MG/DL (8.5-10.1); CARBON DIOXIDE 28 MMOL/L (21-32); CHLORIDE 102 MMOL/L (98-107); CREATININE 0.7 MG/DL (0.55-1.30); POTASSIUM 3.6 MMOL/L (3.5-5.1); SODIUM 137 MMOL/L (136-145)
[2017-08-25] MEDS: LORazepam Inj 2mg/ml 1ml IV PRN (06:09)
[2017-08-25] MEDS: PCA Morphine 1mg/ml 30 ML IV PRN ×3 (06:19→23:18)
[2017-08-25] MEDS: PCA shift volume MISC SCH ×2 (07:52→19:00)
[2017-08-25 08:00] VITALS: BP 141/87
[2017-08-25] MEDS ORDERED: Naloxone 0.4mg/ml Inj IVP PRN (08:54)
--- NOTE | 2017-08-25 08:57 | General Progress Note ---
Progress Note Progress Note Afebrile VSS with P 101-112 ambulates freely now multiple times a day. RNs state he has been manipulating the PHARMACY ACCOUNT DIRECTOR pump buttons Abdomen soft, mildly distended, healing nicely, david scant serous Urine 4300 Gastrostomy 540 BCIR ileo 140 now bilious WBC 9900 Hgb 9.4 (stable) K up 3.6 Imp. Ileus Plan: NPO d/c urinary De Leon D/C basal infusion of PHARMACY ACCOUNT DIRECTOR and no IV Ativan Patient counseled again Rolando Webb MD August 25, 2017 08:57
[2017-08-25] MEDS ORDERED: Rate Change PCA 1 Each MISC PRN (09:00)
[2017-08-25] MEDS ORDERED: PCA Morphine 1mg/ml 30 ML IV PRN ×2 (09:15→18:45)
[2017-08-25] MEDS ORDERED: Tubing IV Secondary IV ONE (10:44)
[2017-08-25 12:00] VITALS: BP 142/95
[2017-08-25] MEDS ORDERED: NS Irrig 1000ml ONE (14:37)
[2017-08-25] MEDS ORDERED: NS 500ML ONE (14:37)
[2017-08-25 16:00] VITALS: BP 129/70
[2017-08-25] MEDS: Dyna-Hex 2% Top Sol 2oz TOPIC SCH (20:02)
[2017-08-25 20:32] VITALS: BP 124/78
[2017-08-25] MEDS: Iron Sucrose 100 MG in NS 55 ML IV SCH (21:08)
[2017-08-25] MEDS: HydrOXYzine tab 25 MG TAB ORAL PRN (21:17)
[2017-08-26 00:44] VITALS: BP 134/78
[2017-08-26] MEDS: Zolpidem 5mg tab ORAL PRN ×2 (03:00→22:12)
[2017-08-26] MEDS: Morphine Sulfate 4mg/ml Inj IVP PRN ×5 (04:18→20:13)
[2017-08-26] MEDS: DiphenhydrAMINE 50mg/ml Inj IVP PRN ×5 (04:18→20:13)
[2017-08-26 04:41] VITALS: BP 131/76
[2017-08-26] MEDS: Ampicillin/Sulbactam Sod 3 GM in NS 110 ML IV SCH (05:40)
[2017-08-26] MEDS: PCA Morphine 1mg/ml 30 ML IV PRN ×4 (05:42→22:18)
[2017-08-26] MEDS: PCA shift volume MISC SCH ×2 (07:26→19:22)
[2017-08-26 08:20] VITALS: BP 131/78
[2017-08-26] MEDS ORDERED: Naloxone 0.4mg/ml Inj IVP PRN (08:39)
[2017-08-26] MEDS ORDERED: LORazepam 1mg tab SL PRN (08:45)
[2017-08-26] MEDS ORDERED: Rate Change PCA 1 Each MISC PRN (08:45)
--- NOTE | 2017-08-26 08:48 | General Progress Note ---
Progress Note Progress Note AVSS with much decreased tachycardia. chest clear with good IS effort Yesterday he ordered food from a restaurant (delivery intercepted by security and RNs, and said he was going home. Counseled by Charge Nurse and meds adjusted and he became more come Abdomen soft, mild distention, healing nicely, david - serous Urine 1600 (voiding without De Leon) Gastrostomy 650 BCIR ileo 130 enteric Imp. Ileus Improved mental status Plan: NPO May need Psychiatric evaluation d/c basal infusion of ASSISTANT OFFSET PRESS OPERATOR and decrease breakthrough dosing f/u labs Rolando Webb MD August 26, 2017 08:48
[2017-08-26] MEDS: LORazepam 1mg tab SL PRN (11:05)
[2017-08-26] MEDS: D5 1/2NS w/KCl 40meq 1000ml 1,000 ML IV SCH ×2 (11:53→22:10)
[2017-08-26 12:00] VITALS: BP 132/93
[2017-08-26] MEDS ORDERED: PCA Morphine 1mg/ml 30 ML IV PRN (12:30)
[2017-08-26 16:00] VITALS: BP 130/89
[2017-08-26] MEDS ORDERED: NS Irrig 1000ml ONE (17:03)
[2017-08-26] MEDS: Dyna-Hex 2% Top Sol 2oz TOPIC SCH (20:00)
[2017-08-26 20:27] VITALS: BP 111/65
[2017-08-26] MEDS: Iron Sucrose 100 MG in NS 110 ML IV SCH (20:40)
[2017-08-27] MEDS: DiphenhydrAMINE 50mg/ml Inj IVP PRN ×6 (00:12→20:38)
[2017-08-27] MEDS: Morphine Sulfate 4mg/ml Inj IVP PRN ×2 (00:13→04:18)
[2017-08-27 00:20] VITALS: BP 112/69
[2017-08-27] MEDS: LORazepam 1mg tab SL PRN ×2 (02:03→10:37)
[2017-08-27 04:27] VITALS: BP 108/67
[2017-08-27] MEDS: PCA Morphine 1mg/ml 30 ML IV PRN ×4 (05:25→22:12)
[2017-08-27 06:24] LABS: ANION GAP 7 mmol/L (5-15); BLOOD UREA NITROGEN 5 mg/dL (7-18); CALCIUM 8.6 MG/DL (8.5-10.1); CARBON DIOXIDE 29 MMOL/L (21-32); CHLORIDE 102 MMOL/L (98-107); CREATININE 0.8 MG/DL (0.55-1.30); POTASSIUM 3.8 MMOL/L (3.5-5.1); SODIUM 137 MMOL/L (136-145)
[2017-08-27 06:30] LABS: BASOPHILS % (AUTO) 1.8 % (0.0-2.0); EOSINOPHILS % (AUTO) 7.7 % (0.0-3.0); HEMATOCRIT 28.8 % (42.0-52.0); HEMOGLOBIN 9.4 G/DL (14.2-18.0); MEAN CORPUSCULAR VOLUME 86 FL (80-99); MONOCYTES % (AUTO) 9.1 % (1.0-10.0); NEUTROPHILS % (AUTO) 57.5 % (45.0-75.0); PLATELET COUNT 268 K/UL (150-450); RED BLOOD COUNT 3.34 M/UL (4.70-6.10); RED CELL DISTRIBUTION WIDTH 14.2 % (11.6-14.8); WHITE BLOOD COUNT 5.6 K/UL (4.8-10.8)
[2017-08-27] MEDS: PCA shift volume MISC SCH ×2 (07:22→19:14)
[2017-08-27 08:00] VITALS: BP 111/62
[2017-08-27] MEDS ORDERED: Rate Change PCA 1 Each MISC PRN ×2 (08:30→22:45)
[2017-08-27] MEDS ORDERED: Naloxone 0.4mg/ml Inj IVP PRN (08:30)
--- NOTE | 2017-08-27 08:42 | General Progress Note ---
Progress Note Progress Note AVSS Feeling better and tolerated weaning of OPHTHALMOLOGIST to low-dose. c/o bladder pressure/fullness while and after voiding Abdomen soft, less distended, healing nicely, david - scant Urine 900 Gastrostomy 270 BCIR ileo 850 WBC 5600 Hgb 9.4 (stable - to get 1000mg Venofer during hospital stay) BMP - all wnl Imp. Improving Plan: clear liquid diet - with gastrostomy to drainage still D/C q4h Morphine breakthrough pain dosing Maintain OPHTHALMOLOGIST another day + Tylenol q4h prn Maintain continuous decompression of Stoll Continent Intestinal Howells U/A, urine C&S, post-void bladder scan Rolando Webb MD August 27, 2017 08:41
[2017-08-27] MEDS: D5 1/2NS w/KCl 40meq 1000ml 1,000 ML IV SCH ×2 (08:43→18:43)
[2017-08-27] MEDS ORDERED: Morphine Sulfate 4mg/ml Inj IVP SCH (08:45)
[2017-08-27] MEDS: HydrOXYzine tab 25 MG TAB ORAL PRN (10:37)
[2017-08-27 12:00] VITALS: BP 134/84
[2017-08-27 12:00] LABS: APPEARANCE,URINE CLEAR; BILIRUBIN, URINE NEGATIVE (NEGATIVE); COLOR,URINE PALE YELLOW; GLUCOSE, URINE (UA) NEGATIVE (NEGATIVE); KETONES,URINE NEGATIVE (NEGATIVE); LEUKOCYTE ESTERASE ,URINE 1+ (NEGATIVE); NITRITE,URINE NEGATIVE (NEGATIVE); PH,URINE 7 (4.5-8.0); PROTEIN,URINE NEGATIVE (NEGATIVE); UROBILINOGEN,URINE NORMAL MG/DL (0.0-1.0)
[2017-08-27 16:00] VITALS: BP 113/65
[2017-08-27] MEDS: Morphine Sulfate 4mg/ml Inj IV PRN ×2 (16:42→20:44)
[2017-08-27] MEDS: Dyna-Hex 2% Top Sol 2oz TOPIC SCH (20:00)
[2017-08-27 20:15] VITALS: BP 122/81
[2017-08-27] MEDS: Iron Sucrose 100 MG in NS 110 ML IV SCH (20:32)
[2017-08-27] MEDS ORDERED: Zolpidem 5mg tab ORAL PRN (21:00)
[2017-08-27] MEDS ORDERED: Cyclobenzaprine 10mg Tab ORAL PRN (22:30)
[2017-08-27] MEDS ORDERED: PCA Education Pamphlet MISC ONE (22:45)
[2017-08-27] MEDS ORDERED: PCA Morphine 1mg/ml 30 ML IV PRN ×2 (22:45→23:15)
[2017-08-27] MEDS ORDERED: Cyclobenzaprine 10mg Tab ORAL SCH (23:00)
[2017-08-28] VITALS: BP 117/77
[2017-08-28] MEDS: DiphenhydrAMINE 50mg/ml Inj IVP PRN ×3 (00:38→08:50)
[2017-08-28 04:00] VITALS: BP 126/72
[2017-08-28] MEDS: D5 1/2NS w/KCl 40meq 1000ml 1,000 ML IV SCH ×2 (04:47→16:02)
[2017-08-28] MEDS ORDERED: PCA shift volume MISC SCH (07:00)
[2017-08-28] MEDS: PCA shift volume MISC SCH (07:22)
[2017-08-28 08:00] VITALS: BP 118/70
--- NOTE | 2017-08-28 08:56 | General Progress Note ---
Progress Note Progress Note AVSS Refused clear liquid and ordered from outside the hospital - patient told this is forbidden in view of BCIR pouch catheter potential for getting plugged with subsequent pouch leak. Staff to inform security again. Abdomen soft, healing nicely, david - scant U/A - wnl Post void residual - 0cc Voiding symptoms better Imp. Improving Plan: Clear liquid diet with gastrostomy 3:3 protocol d/c FACULTY I ON CALL MEDICAL ASSISTANT and all IV meds Transition to Percocet 10/325 q4h prn x 2 days, then 5mg labs in AM maintain continuous decompression of Stoll Continent Ileostomy pouch Rolando Webb MD August 28, 2017 08:56
[2017-08-28] MEDS ORDERED: D5 1/2NS w/KCl 40meq 1000ml 1,000 ML IV SCH (10:30)
[2017-08-28] MEDS: LORazepam 1mg tab SL PRN ×2 (10:44→16:02)
[2017-08-28 12:00] VITALS: BP 116/74
[2017-08-28] MEDS ORDERED: Metoclopramide 10mg/2ml Inj IVP ONE (15:20)
[2017-08-28 16:00] VITALS: BP 141/80
[2017-08-28] MEDS: Metoclopramide 10mg/2ml Inj IVP SCH ×2 (18:30→20:19)
[2017-08-28 20:00] VITALS: BP 142/86
[2017-08-28] MEDS: Iron Sucrose 100 MG in NS 110 ML IV SCH (20:22)
[2017-08-28] MEDS: Dyna-Hex 2% Top Sol 2oz TOPIC SCH (20:22)
[2017-08-28] MEDS ORDERED: Tubing IV Secondary IV ONE (20:37)
[2017-08-29] VITALS: BP 137/82
[2017-08-29] MEDS: Metoclopramide 10mg/2ml Inj IVP SCH ×2 (00:30→05:34)
[2017-08-29 04:00] VITALS: BP 133/93
[2017-08-29 04:50] LABS: BASOPHILS % (AUTO) 0.9 % (0.0-2.0); EOSINOPHILS % (AUTO) 0.4 % (0.0-3.0); HEMATOCRIT 34.2 % (42.0-52.0); HEMOGLOBIN 11.1 G/DL (14.2-18.0); LYMPHOCYTES % (AUTO) 13.7 % (20.0-45.0); MEAN CORPUSCULAR VOLUME 87 FL (80-99); MONOCYTES % (AUTO) 5.6 % (1.0-10.0); NEUTROPHILS % (AUTO) 79.4 % (45.0-75.0); PLATELET COUNT 392 K/UL (150-450); RED BLOOD COUNT 3.92 M/UL (4.70-6.10)
[2017-08-29 05:08] LABS: ALANINE AMINOTRANSFERASE 29 U/L (12-78); ALBUMIN 3.3 G/DL (3.4-5.0); ALBUMIN/GLOBULIN RATIO 0.8 (1.0-2.7); ALKALINE PHOSPHATASE 180 U/L (46-116); ANION GAP 7 mmol/L (5-15); ASPARTATE AMINO TRANSFERASE 29 U/L (15-37); BILIRUBIN,TOTAL 0.3 MG/DL (0.2-1.0); BLOOD UREA NITROGEN 4 mg/dL (7-18); CALCIUM 9.5 MG/DL (8.5-10.1); CARBON DIOXIDE 30 MMOL/L (21-32); CHLORIDE 104 MMOL/L (98-107); CREATININE 0.8 MG/DL (0.55-1.30); SODIUM 141 MMOL/L (136-145)
[2017-08-29 08:00] VITALS: BP 131/81
[2017-08-29] MEDS ORDERED: Isovue-300 100ml vial INJ PRN (08:00)
--- NOTE | 2017-08-29 08:06 | General Progress Note ---
Progress Note Progress Note AVSS Did not tolerate plugging of gastrostomy with emesis x 1 (100cc). Reglan causes anxiety. He has been disconnecting his IV from the PIC line by himself despite warnings not to. He does not comply. Abdomen slightly distended, soft, healing well. Urine 1750 Gastrostomy 590 BCIR ileo 140 WBC 10,000 Hgb 11.1 BMP - wnl Albumin up 3.3 Imp. R/O partial SBO Plan: Gastrostomy to continuous drainage started last night STAT CT scan abd+pelvis with oral and IV contrast Psychiatric evaluation Start TPN as he continues NPO Will order a sitter at night Rolando Webb MD August 29, 2017 08:06
[2017-08-29] MEDS: D5 1/2NS w/KCl 40meq 1000ml 1,000 ML IV SCH ×3 (09:16→18:28)
[2017-08-29] MEDS: LORazepam 1mg tab SL PRN ×2 (09:44→14:37)
[2017-08-29] MEDS ORDERED: Morphine Sulfate 4mg/ml Inj IVP SCH (11:00)
[2017-08-29 12:00] VITALS: BP 129/81
[2017-08-29] MEDS: NovoLOG Insulin Flexpen SUBQ SCH ×2 (12:00→17:26)
--- NOTE | 2017-08-29 12:32 | Consultation ---
History of Present Illness General Date patient seen: August 29, 2017 Present Illness HPI 26-year-old male in overall good health with a malfunctioning Gladys ileostomy. He developed ulcerative colitis at age 16 in approximately 2006. the pt is here for medical stabilization. The pt has been anxious and agitated. splitting staff and has been uncooperative. the pt has been demanding and not following the doctors recs and directions. the pt has med seeking behavior. the pt is not suicidal. he endorses anxiety and panic attack like sxs. Allergies: Coded Allergies: ATROPINE (Verified Allergy, Unknown, 08/20/17) DIPHENOXYLATE (Verified Allergy, Unknown, 08/20/17) FENTANYL (Verified Allergy, Unknown, 08/20/17) KETOROLAC (Verified Allergy, Unknown, 08/20/17) MORPHINE (Verified Adverse Reaction, Unknown, rash, 08/20/17) Patient History History Provided By: Patient, Medical Record Healthcare decision maker Resuscitation status Full Code Advanced Directive on File No Past Medical/Surgical History Past Medical/Surgical History: (1) Ileostomy dysfunction Review of Systems Psychiatric: Reports: prior hx, anxiety, depressed feelings, emotional problems Physical Exam General Appearance: no apparent distress, alert Neurologic: oriented x 3, responsive, depressed affect Last 24 Hour Vital Signs Date Time Temp Pulse Resp B/P (MAP) Pulse Ox O2 Delivery O2 Flow Rate FiO2 08/29/17 09:00 98.3 08/29/17 08:00 98.3 86 18 131/81 94 98.3 08/29/17 04:00 99.5 85 19 133/93 97 99.5 08/29/17 00:00 98.4 98 18 137/82 98 Room Air 98.4 08/28/17 20:00 98.5 97 18 142/86 98 98.5 08/28/17 20:00 98 Room Air 08/28/17 16:00 97.7 103 20 141/80 99 Room Air 97.7 Intake and Output 08/28/17 08/29/17 19:00 07:00 Intake Total 761 ml 1250 ml Output Total 1570 ml 810 ml Balance -809 ml 440 ml Intake Oral 636 ml IV Total 125 ml 1250 ml Output Urine Total 1050 ml 700 ml Other 520 ml 110 ml # Voids 5 2 Laboratory Tests Test 08/29/17 04:25 White Blood Count 10.0 K/UL (4.8-10.8) Red Blood Count 3.92 M/UL (4.70-6.10) L Hemoglobin 11.1 G/DL (14.2-18.0) L Hematocrit 34.2 % (42.0-52.0) L Mean Corpuscular Volume 87 FL (80-99) Mean Corpuscular Hemoglobin 28.3 PG (27.0-31.0) Mean Corpuscular Hemoglobin Concent 32.4 G/DL (32.0-36.0) Red Cell Distribution Width 15.0 % (11.6-14.8) H Platelet Count 392 K/UL (150-450) Mean Platelet Volume 6.3 FL (6.5-10.1) L Neutrophils (%) (Auto) 79.4 % (45.0-75.0) H Lymphocytes (%) (Auto) 13.7 % (20.0-45.0) L Monocytes (%) (Auto) 5.6 % (1.0-10.0) Eosinophils (%) (Auto) 0.4 % (0.0-3.0) Basophils (%) (Auto) 0.9 % (0.0-2.0) Sodium Level 141 MMOL/L (136-145) Potassium Level 4.0 MMOL/L (3.5-5.1) Chloride Level 104 MMOL/L (98-107) Carbon Dioxide Level 30 MMOL/L (21-32) Anion Gap 7 mmol/L (5-15) Blood Urea Nitrogen 4 mg/dL (7-18) L Creatinine 0.8 MG/DL (0.55-1.30) Estimat Glomerular Filtration Rate > 60 mL/min (>60) Glucose Level 130 MG/DL (74-106) H Calcium Level 9.5 MG/DL (8.5-10.1) Total Bilirubin 0.3 MG/DL (0.2-1.0) Aspartate Amino Transf (AST/SGOT) 29 U/L (15-37) Alanine Aminotransferase (ALT/SGPT) 29 U/L (12-78) Alkaline Phosphatase 180 U/L (46-116) H Total Protein 7.6 G/DL (6.4-8.2) Albumin 3.3 G/DL (3.4-5.0) L Globulin 4.3 g/dL Albumin/Globulin Ratio 0.8 (1.0-2.7) L Height (Feet): 5 Height (Inches): 11.00 Weight (Pounds): 170 Medications Current Medications Medications (Trade) Dose Ordered Sig/Raul Route PRN Reason Start Time Stop Time Status Last Admin Dose Admin Acetaminophen (Tylenol) 650 mg Q4H PRN ORAL Mild Pain/Temp > 100.5 08/27/17 08:45 09/26/17 08:44 Chlorhexidine Gluconate (Lenore-Hex 2%) 1 applic DAILY@2000 TOPIC 08/24/17 20:00 09/19/17 19:59 08/28/17 20:22 Cyclobenzaprine HCl (Flexeril) 10 mg Q6HR PRN ORAL INCISIONAL PAIN 08/27/17 22:30 09/26/17 22:29 08/29/17 10:14 Dextrose 1,000 ml @ 0 mls/hr Q24H PRN IV PN interrupted or unavailable 08/29/17 20:00 09/28/17 19:59 Dextrose (Dextrose 50%) 25 ml STAT PRN IV Hypoglycemia 08/29/17 08:41 09/28/17 08:40 Dextrose (Dextrose 50%) 50 ml STAT PRN IV Hypoglycemia 08/29/17 08:41 09/28/17 08:40 Dextrose/ Electrolytes 1,000 ml @ 125 mls/hr Q8H IV 08/28/17 16:00 08/29/17 19:59 08/29/17 09:16 Fat Emulsion Intravenous 240 ml/Amino Acids/ Electrolytes/ Dextrose 2,040 ml @ 85 mls/hr Q24H IV 08/29/17 20:00 09/28/17 19:59 Hydroxyzine HCl (Atarax) 50 mg EVERY 6 HOURS PRN ORAL Itching/Pruritis 08/24/17 12:00 09/23/17 11:59 08/27/17 10:37 Insulin Aspart (NovoLOG) Q6HR SUBQ 08/29/17 12:00 09/28/17 11:59 Iopamidol (Isovue-300 100ml) 100 ml NOW PRN INJ Radiology Procedure 08/29/17 08:00 08/29/17 23:59 Iron Sucrose 100 mg/Sodium Chloride 115 ml @ 460 mls/hr BEDTIME IV 08/26/17 21:00 08/30/17 21:14 08/28/17 20:22 Lorazepam (Ativan) 1 mg HSPRN PRN SL Sleep 08/26/17 08:45 09/02/17 08:44 Lorazepam (Ativan) 1 mg Q4H PRN SL Muscle Spasm 08/26/17 11:00 09/02/17 10:59 08/29/17 09:44 Ondansetron HCl (Zofran) 4 mg Q4H PRN IVP Nausea & Vomiting 08/21/17 15:00 09/20/17 14:59 08/29/17 09:17 Oxycodone/ Acetaminophen (Percocet 10/325) 1 tab Q4H PRN ORAL For Pain 08/28/17 09:00 09/04/17 08:59 08/29/17 08:01 Phytonadione (Vitamin K) 10 mg ONCE A WEEK SUBQ 08/30/17 21:00 09/29/17 20:59 Zolpidem Tartrate (Ambien) 5 mg HSPRN PRN ORAL Insomnia 08/27/17 21:00 09/03/17 20:59 08/29/17 01:22 Assessment/Plan Status: stable Assessment/Plan anxiety d/o panic attack mdd cluster B -cymbalta -remeron -recommend to taper ativan down and replace with long acting benzos like Nae James M.D. August 29, 2017 12:31
[2017-08-29] MEDS ORDERED: DULoxetine 30mg cap ORAL SCH (12:45)
--- NOTE | 2017-08-29 13:05 | Diagnostic Imaging Report ---
Clinical Indication: Vomiting, abdominal pain Technique: Patient given enteric contrast IV administration nonionic contrast. Venous phase spiral acquisition obtained through the abdomen and pelvis. Multiplanar reconstructions were generated. Total dose length product 719.02 mGycm. CTDIvol(s) 13.01 mGy. Dose reduction achieved using automated exposure control Comparison: none Findings: There is evidence of recent surgery, with midline and right lower quadrant surgical arelis, infiltration of the fat deep to the incisions, and placement of a right lower quadrant continent ileostomy. A catheter is seen within the ileostomy. There is some inflammation of the pelvic fat. Questionable discrete fluid collection is seen posterior to the pouch in the presacral region. There is a gastrostomy. Contrast is seen filling the stomach, duodenum and proximal small bowel. The proximal small bowel loops are nondilated. However, beginning at the level of the distal jejunum, small bowel loops are dilated and fluid-filled, and contrast is not seen beyond the mid jejunum.. Distal loops heading into the ileostomy pouch are less dilated, but these taper gradually without abrupt transition point demonstrated. No discrete fluid collections are demonstrated. A few gas bubbles are seen in the abdominal wall and anterior peritoneal space. The liver, gallbladder, bile ducts, pancreas, spleen, adrenals, kidneys are unremarkable. No retroperitoneal or mesenteric mass or adenopathy. No pelvic mass or adenopathy. The included lung bases are clear. The bones are unremarkable. Impression: Evidence of recent surgery, presumably placement or revision of continent ileostomy, as described Dilated fluid-filled distal jejunal and ileal loops, as described. No definite abrupt transition point. Findings most likely on the basis of postoperative ileus, although small bowel obstruction is also possible. Infiltration of the peripelvic fat, presumably postsurgical in nature Questionable discrete collection posterior to the pouch. Most likely a retained postsurgical fluid collection although infection not excludable The CT scanner at [facility] is accredited by the [employer] and the scans are performed using protocols designed to limit radiation exposure to as low as reasonably achievable to attain images of sufficient resolution adequate for diagnostic evaluation.
--- NOTE | 2017-08-29 14:54 | General Progress Note ---
Progress Note Progress Note Dr. Camara's consultation much appreciated. CT scan reveals dilated distal bowel - ileus vs. partial obstruction Having intermittent abd pain sharp and cramping with small emesis Plan: MS 1mg IV q3h prn severe pain npo TPN to start this evening Rolando Webb MD August 29, 2017 14:54
[2017-08-29 16:00] VITALS: BP 139/86
[2017-08-29] MEDS: Morphine Sulfate 4mg/ml Inj IVP PRN ×2 (16:01→20:11)
[2017-08-29] MEDS: HydrOXYzine tab 25 MG TAB ORAL PRN (17:34)
[2017-08-29] MEDS ORDERED: Dextrose 10% 1,000 ML IV PRN (20:00)
[2017-08-29] MEDS: Iron Sucrose 100 MG in NS 110 ML IV SCH (20:11)
[2017-08-29] MEDS: Dyna-Hex 2% Top Sol 2oz TOPIC SCH (20:11)
[2017-08-29 20:37] VITALS: BP 135/80
[2017-08-29] MEDS ORDERED: Fat Emulsion Iv 20% 250 ML IV SCH (21:00)
[2017-08-29] MEDS: Fat Emulsion Iv 20% 240 ML in Tpn 1,800 ML IV SCH (21:14)
[2017-08-30] VITALS: BP 126/81
[2017-08-30] MEDS: Morphine Sulfate 4mg/ml Inj IVP PRN ×7 (00:07→20:35)
[2017-08-30] MEDS: NovoLOG Insulin Flexpen SUBQ SCH ×4 (00:09→18:00)
[2017-08-30 04:00] VITALS: BP 129/79
[2017-08-30 05:05] LABS: BASOPHILS % (AUTO) 0.8 % (0.0-2.0); EOSINOPHILS % (AUTO) 3.9 % (0.0-3.0); HEMATOCRIT 32.1 % (42.0-52.0); HEMOGLOBIN 10.5 G/DL (14.2-18.0); LYMPHOCYTES % (AUTO) 17.3 % (20.0-45.0); MEAN CORPUSCULAR VOLUME 88 FL (80-99); MONOCYTES % (AUTO) 7.5 % (1.0-10.0); NEUTROPHILS % (AUTO) 70.6 % (45.0-75.0); PLATELET COUNT 429 K/UL (150-450); RED BLOOD COUNT 3.63 M/UL (4.70-6.10); RED CELL DISTRIBUTION WIDTH 16.1 % (11.6-14.8); WHITE BLOOD COUNT 9.6 K/UL (4.8-10.8)
[2017-08-30 05:34] LABS: ANION GAP 7 mmol/L (5-15); BLOOD UREA NITROGEN 7 mg/dL (7-18); CALCIUM 9.3 MG/DL (8.5-10.1); CARBON DIOXIDE 29 MMOL/L (21-32); CHLORIDE 105 MMOL/L (98-107); CREATININE 0.8 MG/DL (0.55-1.30); POTASSIUM 3.8 MMOL/L (3.5-5.1); SODIUM 141 MMOL/L (136-145)
[2017-08-30 08:00] VITALS: BP 123/74
--- NOTE | 2017-08-30 08:51 | General Progress Note ---
Progress Note Progress Note AVSS Patient now on Cymbalta and Remeron. Gastrostomy was connected to suction yesterday instead of gravity drainage, and no further nausea or emesis or sharp abd. pains Abdomen non-distended, incisions clean, david scant Urine 1650 (C&S - no growth) Gastrostomy 1220 BCIR ffileo 280 WBC 9600 Hgb 10.5 Platelets up 429,000 Glucose 149 - on TPN Imp. Partial small bowel obstruction Plan: NPO, TPN, Gastrostomy to suction May take po meds with gastrostomy off suction x 30 minutes after doses Ambulate in hallways 3x daily labs in AM Still need Percocet 10/325 + 1mg Morphine IV throughout the day - encouraged to minimize IV MS now that he is improved today F/U by Psychiatry Rolando Irizarry MD August 30, 2017 08:51
[2017-08-30] MEDS: DULoxetine 30mg cap ORAL SCH (09:17)
[2017-08-30 11:51] VITALS: BP 116/79
--- NOTE | 2017-08-30 15:25 | General Progress Note ---
Assessment/Plan Status: stable Assessment/Plan borderline pd substance use mdd anxiety -cymbalta 30mg qam -remeron 15mg qhs -provide ro/st Subjective Date patient seen: August 30, 2017 Neurologic/Psychiatric: Reports: anxiety, depressed, emotional problems Allergies: Coded Allergies: ATROPINE (Verified Allergy, Unknown, 08/20/17) DIPHENOXYLATE (Verified Allergy, Unknown, 08/20/17) FENTANYL (Verified Allergy, Unknown, 08/20/17) KETOROLAC (Verified Allergy, Unknown, 08/20/17) MORPHINE (Verified Adverse Reaction, Unknown, rash, 08/20/17) Subjective the pt fabricating stories. med seeking behavior. the pt stated that he didnt sleep at all. asking for pain medication but not in pain Objective Last 24 Hour Vital Signs Date Time Temp Pulse Resp B/P (MAP) Pulse Ox O2 Delivery O2 Flow Rate FiO2 08/30/17 11:51 98.3 78 20 116/79 99 Room Air 98.3 08/30/17 08:00 98.5 84 20 123/74 97 Room Air 98.5 08/30/17 04:00 98.1 85 19 129/79 97 98.1 08/30/17 00:00 98.4 80 17 126/81 96 98.4 08/29/17 20:37 98.9 91 18 135/80 99 98.9 08/29/17 16:00 98.1 105 18 139/86 96 98.1 Intake and Output 08/29/17 08/30/17 19:00 07:00 Intake Total 1125 ml Output Total 1780 ml 1370 ml Balance -655 ml -1370 ml IV Total 1125 ml Output Urine Total 1150 ml 500 ml Other 630 ml 870 ml # Voids 4 2 Laboratory Tests 08/30/17 04:45: White Blood Count 9.6, Red Blood Count 3.63L, Hemoglobin 10.5L, Hematocrit 32.1L , Mean Corpuscular Volume 88, Mean Corpuscular Hemoglobin 28.9, Mean Corpuscular Hemoglobin Concent 32.8, Red Cell Distribution Width 16.1H, Platelet Count 429, Mean Platelet Volume 6.3L, Neutrophils (%) (Auto) 70.6, Lymphocytes (%) (Auto) 17.3L, Monocytes (%) (Auto) 7.5, Eosinophils (%) (Auto) 3.9H, Basophils (%) (Auto) 0.8, Sodium Level 141, Potassium Level 3.8, Chloride Level 105, Carbon Dioxide Level 29, Anion Gap 7, Blood Urea Nitrogen 7, Creatinine 0.8, Estimat Glomerular Filtration Rate > 60, Glucose Level 149H, Calcium Level 9.3 Height (Feet): 5 Height (Inches): 11.00 Weight (Pounds): 170 General Appearance: WD/WN, no apparent distress, alert Neurologic: oriented x 3, responsive, depressed affect Nae Camara M.D. August 30, 2017 15:25
[2017-08-30 16:00] VITALS: BP 121/72
[2017-08-30 20:00] VITALS: BP 117/67
[2017-08-30] MEDS: Iron Sucrose 100 MG in NS 110 ML IV SCH (20:50)
[2017-08-30] MEDS: Fat Emulsion Iv 20% 240 ML in Tpn 1,800 ML IV SCH (20:52)
[2017-08-30] MEDS: Dyna-Hex 2% Top Sol 2oz TOPIC SCH (20:53)
[2017-08-30] MEDS ORDERED: Phytonadione 10 mg/mL 1ml amp SUBQ SCH (21:00)
[2017-08-31] VITALS: BP 121/78
[2017-08-31] MEDS: NovoLOG Insulin Flexpen SUBQ SCH ×4 (00:30→18:00)
[2017-08-31] MEDS: Morphine Sulfate 4mg/ml Inj IVP PRN ×3 (03:42→18:43)
[2017-08-31 04:00] VITALS: BP 125/71
[2017-08-31 05:16] LABS: EOSINOPHILS % (AUTO) 5.9 % (0.0-3.0); HEMATOCRIT 34.2 % (42.0-52.0); LYMPHOCYTES % (AUTO) 19.3 % (20.0-45.0); MEAN CORPUSCULAR VOLUME 89 FL (80-99); NEUTROPHILS % (AUTO) 64.9 % (45.0-75.0); PLATELET COUNT 457 K/UL (150-450); RED BLOOD COUNT 3.87 M/UL (4.70-6.10); RED CELL DISTRIBUTION WIDTH 15.4 % (11.6-14.8); WHITE BLOOD COUNT 7.4 K/UL (4.8-10.8)
[2017-08-31 05:53] LABS: ANION GAP 8 mmol/L (5-15); BLOOD UREA NITROGEN 12 mg/dL (7-18); CARBON DIOXIDE 28 MMOL/L (21-32); CHLORIDE 105 MMOL/L (98-107); CREATININE 0.7 MG/DL (0.55-1.30); POTASSIUM 3.8 MMOL/L (3.5-5.1); SODIUM 141 MMOL/L (136-145)
[2017-08-31 08:00] VITALS: BP 126/82
[2017-08-31] MEDS: DULoxetine 30mg cap ORAL SCH (08:26)
--- NOTE | 2017-08-31 08:54 | General Progress Note ---
Progress Note Progress Note AVSS Feeling better today. encouraged to use po Percocet and defer IV Morphine as much as possible Abdomen no longer distended, soft, healing well Urine 1200+ Gastrostomy 1180 BCIR ileo 570 (up) WBC 7400 Hgb 112 Platelets up 457,000 BMP-wnl Imp. Improving partial small bowel obstruction Plan; Continue current regimen Hopefully can resume intermittent pluggingf of gastrostomy + clear liquids tomorrow Rolando Webb MD August 31, 2017 08:54
[2017-08-31 12:42] VITALS: BP 128/79
[2017-08-31 16:00] VITALS: BP 123/76
[2017-08-31 19:50] VITALS: BP 128/80
[2017-08-31] MEDS: Dyna-Hex 2% Top Sol 2oz TOPIC SCH (19:54)
[2017-08-31] MEDS: Fat Emulsion Iv 20% 240 ML in Tpn 1,800 ML IV SCH (20:34)
[2017-09-01] MEDS: Morphine Sulfate 4mg/ml Inj IVP PRN ×5 (00:01→21:04)
[2017-09-01 00:08] VITALS: BP 121/78
[2017-09-01 04:00] VITALS: BP 126/77
[2017-09-01 05:44] LABS: BASOPHILS % (AUTO) 1.1 % (0.0-2.0); EOSINOPHILS % (AUTO) 6.1 % (0.0-3.0); HEMATOCRIT 37.6 % (42.0-52.0); HEMOGLOBIN 12.5 G/DL (14.2-18.0); MEAN CORPUSCULAR VOLUME 89 FL (80-99); MONOCYTES % (AUTO) 6.6 % (1.0-10.0); NEUTROPHILS % (AUTO) 68.1 % (45.0-75.0); PLATELET COUNT 494 K/UL (150-450); RED BLOOD COUNT 4.24 M/UL (4.70-6.10); RED CELL DISTRIBUTION WIDTH 15.5 % (11.6-14.8); WHITE BLOOD COUNT 8.9 K/UL (4.8-10.8)
[2017-09-01] MEDS: NovoLOG Insulin Flexpen SUBQ SCH ×5 (06:00→23:51)
[2017-09-01 06:12] LABS: ALANINE AMINOTRANSFERASE 58 U/L (12-78); ALBUMIN 3.3 G/DL (3.4-5.0); ALBUMIN/GLOBULIN RATIO 0.8 (1.0-2.7); ALKALINE PHOSPHATASE 204 U/L (46-116); ANION GAP 8 mmol/L (5-15); ASPARTATE AMINO TRANSFERASE 38 U/L (15-37); BILIRUBIN,TOTAL 0.3 MG/DL (0.2-1.0); BLOOD UREA NITROGEN 14 mg/dL (7-18); CALCIUM 9.5 MG/DL (8.5-10.1); CARBON DIOXIDE 29 MMOL/L (21-32); CHLORIDE 103 MMOL/L (98-107); CREATININE 0.8 MG/DL (0.55-1.30); PHOSPHORUS 4.1 MG/DL (2.5-4.9); POTASSIUM 3.9 MMOL/L (3.5-5.1); SODIUM 140 MMOL/L (136-145)
[2017-09-01 08:00] VITALS: BP 131/73
[2017-09-01] MEDS ORDERED: LORazepam 1mg tab SL PRN ×2 (09:00→21:00)
[2017-09-01] MEDS: DULoxetine 30mg cap ORAL SCH (09:12)
--- NOTE | 2017-09-01 09:12 | General Progress Note ---
Progress Note Progress Note AVSS Able to defer IV Morphine doses much better. Still taking Percocet q4h. No GI symptoms Abdomen soft, flat, non-tender. 1/3 arelis d/c'd Urine 795 Gastrostomy 780 (decreased) BCIR ileo 470 WBC 8900 Hgb 12.5 Platelets 494,000 BUN rising now 14 Cr 0.8 Albumin stable 3.3 Imp. Resolving partial SBO Mild hemoconcentration Plan: Add IV fluids at 50cc/hr to TPN Trial of Gastrostomy 3:3 protocol - if tolerates will start clear liquids Rolando Adair MD September 01, 2017 09:12
[2017-09-01] MEDS: D5 1/4NS w/KCl 20mEq 1,000 ML IV SCH (10:27)
[2017-09-01 12:00] VITALS: BP 119/69
[2017-09-01 16:00] VITALS: BP 118/77
[2017-09-01] MEDS ORDERED: Tubing IV Secondary IV ONE (17:07)
[2017-09-01] MEDS ORDERED: NS Irrig 1000ml ONE (17:07)
[2017-09-01 20:00] VITALS: BP 129/83
[2017-09-01] MEDS: Dyna-Hex 2% Top Sol 2oz TOPIC SCH (20:00)
[2017-09-01] MEDS: Fat Emulsion Iv 20% 240 ML in Tpn 1,800 ML IV SCH (20:10)
[2017-09-02] VITALS: BP 120/70
[2017-09-02] MEDS: Morphine Sulfate 4mg/ml Inj IVP PRN (03:04)
[2017-09-02 04:00] VITALS: BP 132/80
[2017-09-02] MEDS: D5 1/4NS w/KCl 20mEq 1,000 ML IV SCH (05:48)
[2017-09-02] MEDS: NovoLOG Insulin Flexpen SUBQ SCH ×3 (05:49→17:36)
[2017-09-02] MEDS: DULoxetine 30mg cap ORAL SCH (08:12)
--- NOTE | 2017-09-02 08:12 | General Progress Note ---
Progress Note Progress Note AVSS Tolerated gastrostomy 3:3 and clear liquids Abdomen soft, healing nicely Urine 925 Gastrostomy 840 BCIR fileo 570 Imp. Improving Plan: Full-liquid non-dairy diet Gastrostomy 5:1 protocol Continue TPN and IV fluids today f/u labs in AM D/C Morphine dosing Rolando Webb MD September 02, 2017 08:12
[2017-09-02] MEDS ORDERED: Cyclobenzaprine 10mg Tab ORAL PRN (08:15)
[2017-09-02 08:18] VITALS: BP 108/65
[2017-09-02] MEDS: LORazepam 1mg tab ORAL PRN ×3 (11:33→21:35)
[2017-09-02 12:00] VITALS: BP 116/64
[2017-09-02 16:00] VITALS: BP 122/68
[2017-09-02] MEDS: Fat Emulsion Iv 20% 240 ML in Tpn 1,800 ML IV SCH (19:55)
[2017-09-02] MEDS: Dyna-Hex 2% Top Sol 2oz TOPIC SCH (19:56)
[2017-09-02 20:00] VITALS: BP 122/67
[2017-09-03] VITALS: BP 108/54
[2017-09-03] MEDS: D5 1/4NS w/KCl 20mEq 1,000 ML IV SCH (01:00)
[2017-09-03 04:00] VITALS: BP 115/66
[2017-09-03] MEDS: NovoLOG Insulin Flexpen SUBQ SCH ×4 (06:00→18:00)
[2017-09-03 06:28] LABS: BASOPHILS % (AUTO) 1.8 % (0.0-2.0); EOSINOPHILS % (AUTO) 7.9 % (0.0-3.0); HEMATOCRIT 37.5 % (42.0-52.0); HEMOGLOBIN 12.3 G/DL (14.2-18.0); LYMPHOCYTES % (AUTO) 21.9 % (20.0-45.0); MEAN CORPUSCULAR VOLUME 89 FL (80-99); MONOCYTES % (AUTO) 7.1 % (1.0-10.0); NEUTROPHILS % (AUTO) 61.3 % (45.0-75.0); PLATELET COUNT 477 K/UL (150-450); RED BLOOD COUNT 4.22 M/UL (4.70-6.10); RED CELL DISTRIBUTION WIDTH 15.2 % (11.6-14.8); WHITE BLOOD COUNT 7.4 K/UL (4.8-10.8)
[2017-09-03 06:51] LABS: ANION GAP 8 mmol/L (5-15); BLOOD UREA NITROGEN 15 mg/dL (7-18); CALCIUM 9.2 MG/DL (8.5-10.1); CARBON DIOXIDE 27 MMOL/L (21-32); CHLORIDE 102 MMOL/L (98-107); CREATININE 0.7 MG/DL (0.55-1.30); POTASSIUM 4.4 MMOL/L (3.5-5.1); SODIUM 137 MMOL/L (136-145)
[2017-09-03] MEDS ORDERED: Ascorbic Acid 500mg tab ORAL PRN (08:30)
[2017-09-03] MEDS: DULoxetine 30mg cap ORAL SCH (08:50)
[2017-09-03] MEDS: LORazepam 1mg tab ORAL PRN ×4 (08:51→22:38)
--- NOTE | 2017-09-03 08:51 | General Progress Note ---
Progress Note Progress Note AVSS Refusing to ambulate yesterday - counseled re this. tolerated gastrostomy 5:1 taking 50% of full liquid diet Abdomen soft, flat. [place] removed and steristrips applied [place] drain removed Urine 2049 Gastrostomy 310 BCIR ileo 320 WBC 7400 Hgb 12.3 Platelets down 477,000 BMP - wnl Imp. Improved Plan; BCIR low residue diet Plug gastrostomy continuously d/c IV fluids, and d/c TPN after current supply finished to ambulate 3x daily Hopefully can start RN education/supervision of BCIR self-intubations tomorrow Rolando Webb MD September 03, 2017 08:51
[2017-09-03 09:00] VITALS: BP 107/59
[2017-09-03] MEDS: oxyCODONE HCL/Acetaminophen 5/325mg ORAL PRN ×3 (11:09→19:08)
[2017-09-03 12:00] VITALS: BP_SYST 10; BP_SYST 110; BP_DIAS 70
[2017-09-03 16:00] VITALS: BP 115/63
[2017-09-03 20:00] VITALS: BP 112/67
[2017-09-03] MEDS: Dyna-Hex 2% Top Sol 2oz TOPIC SCH (21:41)
[2017-09-04] VITALS: BP 119/69
[2017-09-04] MEDS: oxyCODONE HCL/Acetaminophen 5/325mg ORAL PRN ×5 (00:25→22:24)
[2017-09-04 04:30] VITALS: BP 116/74
[2017-09-04] MEDS: LORazepam 1mg tab ORAL PRN ×3 (08:42→20:27)
[2017-09-04] MEDS: DULoxetine 30mg cap ORAL SCH (08:42)
[2017-09-04 09:00] VITALS: BP 103/58
--- NOTE | 2017-09-04 14:48 | General Progress Note ---
Progress Note Progress Note AVSS Eating fairly well - he is a vegetarian but eats fish. No GI complaints Urine 1800 BCIR ileo 845 Abdomen soft, flat. Gastrostomy removed BCIR ileo catheter removed - reinserts readily Imp. Improved Plan: RN education of BCIR self-intubations by patient: q2h from awakening to hs and q0200 Continue strict I&O Rolando Webb MD September 04, 2017 14:48
[2017-09-04] MEDS: Dyna-Hex 2% Top Sol 2oz TOPIC SCH (20:00)
[2017-09-04 20:08] VITALS: BP 126/75
[2017-09-05 00:32] VITALS: BP 121/71
[2017-09-05] MEDS: oxyCODONE HCL/Acetaminophen 5/325mg ORAL PRN ×5 (03:10→21:48)
[2017-09-05 04:00] VITALS: BP 115/67
[2017-09-05] MEDS: DULoxetine 30mg cap ORAL SCH (08:39)
--- NOTE | 2017-09-05 08:56 | General Progress Note ---
Progress Note Progress Note AVSS Learning BCIR intubation techniques nicely. Eating 75% BCIR diet Abdomen soft, all sites healing nicely. Stoma healing well Urine 1800 BCIR ileo 845 Imp. doing well Plan: continue RN supervised BCIR self-intubation q2h am-hs and 0200 continue strict I&O Anticipate discharge tomorrow if continues to do well Rolando Webb MD September 05, 2017 08:56
[2017-09-05] MEDS: LORazepam 1mg tab ORAL PRN ×2 (09:54→16:39)
[2017-09-05 12:00] VITALS: BP 129/85
[2017-09-05 16:00] VITALS: BP 109/68
[2017-09-05 19:50] VITALS: BP 116/73
[2017-09-06] MEDS: oxyCODONE HCL/Acetaminophen 5/325mg ORAL PRN ×3 (02:45→10:36)
[2017-09-06 08:00] VITALS: BP 123/71
--- NOTE | 2017-09-06 08:07 | General Progress Note ---
Progress Note Progress Note Doing well. He has learned intubation techniques and performs BCIR care well. Abdomen soft, stoma nicely healed BCIR ileo 1635 Imp. doing well Plan: Discharge with full supplies/instructions/limitations provided/discussed Rx Percocet 5/325 #40 Ativan 1mg #60 He does not want to continue Cymbalta and Remeron until PMD sees him f/u office 09/10 and Rolando Lopez MD September 06, 2017 08:07
[2017-09-06] MEDS: DULoxetine 30mg cap ORAL SCH (09:10)
[2017-09-06] MEDS ORDERED: NS Irrig 1000ml ONE (13:55)
--- NOTE | 2017-09-10 11:06 | Discharge Summary ---
Discharge Summary Hospital Course Date of Admission August 20, 2017 at 09:32 Date of Discharge September 06, 2017 at 13:56 Admitting Diagnosis malfunctioning ileostomy Reason for Hospitalization: surgery HPI Grant Rogers is a 26 year old male who was admitted on August 20, 2017 at 09:32 for Malfunctioning Ileostomy and surgery Consultations dr Camara Procedures s/p by dr Jon Stoll continent intestinal reservoir and temporary catheter gastrostomy. Hospital Course on admission 08/20: anemic with Hgb 11.5 and iron 30 (50-175), ferritin 30(8-388 ) ,B12 385 ,Folate 11.3 (8.6-58.9). slight elevation of LFTs - advised re possible liver biopsy in surgery BMP - WNL PICC line placed started on IV hydration Full discussion with patient and his mother re his multiple allergies and pain control post-op, nature of surgery and risks, with all questions answered s/p surgry 08/21 donald management, initially with SCHEDULING ASSISTANT NPO IVF empiric antibiotic for possible mild peritonitis given prolonged open bowel time during surgery, patient afebrile, no leucocytosis IV Venofer with close monitoring of counts strict I/O dressing C/D/I OOB as tolerated, De Leon continued f/up CXR no acute disease ambulate tid IS at the bedside, taught and encouraged to use q 1 hr while in the bed renal parameters and e/lytes closely monitored, e/lytes replaced as needed on 08/25 De Leon dc, voiding closely monitored basal rate for SCHEDULING ASSISTANT dc, left on demand patient was continuously counseled re NPO status ( multipe attempts to get food despite being NPO, ordered food from nearby restaurant, which was intercepted by staff) on 08/27 started on clear liquid diet - with gastrostomy to drainage still off Morphine for breakthrough pain continue SCHEDULING ASSISTANT for another day + Tylenol q4h prn continuous decompression of Stoll Continent Intestinal Nemacolin U/A, urine C&S, post-void bladder scan 08/28 -Clear liquid diet with gastrostomy 3:3 protocol off SCHEDULING ASSISTANT and all IV meds transitioned to oral analgesic(Percocet 10/325 q4h prn x 2 days, then 5mg) maintain continuous decompression of Stoll Continent Ileostomy pouch UA with no evidence of infection 08/29 CT scan revealed dilated distal bowel - ileus vs. partial obstruction intermittent abd pain, sharp and cramping with small emesis MS 1mg IV q3h prn severe pain back to NPO TPN started in the evening urine culture negative psychiatrist seen and evaluated started on Remeron and Lexapro recommended to taper down Ativan and replace with long acting BZD, i.e. Klonopin 08/30 NPO, TPN, Gastrostomy to suction po meds with gastrostomy off suction x 30 minutes after encourage ambulate in hallways 3x daily still need Percocet 10/325 + 1mg Morphine IV throughout the day - patient was encouraged to minimize IV MS F/U by Psychiatry Dr. Camara 08/31 improving partial small bowel obstruction 09/01 added IV fluids at 50cc/hr to TPN trial of Gastrostomy 3:3 protocol - 09/02 full-liquid non-dairy diet gastrostomy 5:1 protocol continue TPN and IV fluids off IV Morphine 09/03 [facility] low residue diet plug gastrostomy continuously off IV fluids, off TPN a ambulate 3x daily 09/04: RN education of [facility] self-intubations by patient: q2h from awakening to hs and q0200 strict I&O 09/05 RN supervised [facility] self-intubation q2h am-hs and 0200 continued strict I&O continued discharge planning 09/06 patient cleared for discharge full supplies/instructions/limitations provided/discussed Rx Percocet 5/325 #40 Ativan 1mg #60 Patient declined to continue Cymbalta and Remeron until PMD sees him f/u office 09/10 and prn FINAL DIAGNOSIS 1. Malfunctioning Gladys ileostomy. 2. History of ulcerative colitis. 3. STATUS POST MULTIPLE ABDOMINAL OPERATIONS: 3.1. Total colectomy with ileoanal J-pouch as a three-stage procedure 2013 3.2. Resection of failed J-pouch with abdominoperineal proctectomy and creation of Gladys ileostomy, 11/14/2016. 3.3. Laparotomy with abdominal washout and evacuation of rectus hematoma, 11/21/2016. 4. s/p 08/21/17 Stoll continent intestinal reservoir and temporary catheter gastrostomy. 5. Anemia, stable 6. Ileus , possible partial small bowel obstruction-resolved 7. Atelectasis - 8. Anxiety disorder 9. Panic attack 10. Major depressive disorder 11. Cluster B personality disorder Discharge Medications Medication Profile: No Active Prescriptions or Reported Meds Discharge Condition Upon Discharge: stable Discharge Disposition Patient was discharged to Home (01) Discharge Instructions Discharge Instructions Special Instructions I have been assigned to complete a D/C Summary on this account. I was not involved in the patient management Susan Coughlin NP September 10, 2017 11:06
== END 2017-09-06 13:56 | disposition home or self-care (01) | DRG 330 ==
LOC: 3E 09:32
PROC: 02HV33Z Insertion of Infusion Device into Superior Vena Cava, Percutaneous Approach (ICD-10-PCS; principal; 2017-08-20)
PROC: B518ZZA Fluoroscopy of Superior Vena Cava, Guidance (ICD-10-PCS; principal; 2017-08-20)
PROC: 0DQB0ZZ Repair Ileum, Open Approach (ICD-10-PCS; 2017-08-21)
PROC: 0DH63UZ Insertion of Feeding Device into Stomach, Percutaneous Approach (ICD-10-PCS; 2017-08-21)
PROC: 0D1B0Z4 Bypass Ileum to Cutaneous, Open Approach (ICD-10-PCS; 2017-08-21)
DX: K94.13 Enterostomy malfunction (principal); J98.11 Atelectasis; K56.7 Ileus, unspecified; K56.609 Unspecified intestinal obstruction, unspecified as to partial versus complete obstruction; Z76.5 Malingerer [conscious simulation]; F41.9 Anxiety disorder, unspecified; F32.9 Major depressive disorder, single episode, unspecified; F41.0 Panic disorder [episodic paroxysmal anxiety]; R00.0 Tachycardia, unspecified; R94.5 Abnormal results of liver function studies; F60.89 Other specific personality disorders; D64.9 Anemia, unspecified
CPT/HCPCS: 36415; 36569; 71045; 74177; 76937; 80048; 80053; 81001; 81003; 82607; 82728; 82746; 82962; 83540; 83550; 83735; 84100; 85025; 85610; 85730; 86850; 86900; 86901; 87086; 94003; 94150; J1815; J2250; J2405; J2765

== ENCOUNTER 2017-12-17 11:59 | Inpatient (IN) | payer BC ==
[~2017-12-17] VITALS: Ht 180.3 cm; Wt 69.9 kg
[2017-12-17] MEDS ORDERED: NKM (12:25)
--- NOTE | 2017-12-17 12:27 | Emergency Room Report ---
History of Present Illness General Chief Complaint: General Complaint Source: Patient Present Illness HPI Patient present with complaints of persistent nausea vomiting, discomfort Patient has a special conduit colostomy Has had several hospital presentations to other facilities However there has not been a specialist who performed the procedure Patient reports that the catheter that is placed keep falling out Is not able to drain the area Denies any fevers or chills denies any dysuria frequency Allergies: Coded Allergies: ATROPINE (Verified Allergy, Unknown, 08/20/17) DIPHENOXYLATE (Verified Allergy, Unknown, 08/20/17) KETOROLAC (Verified Allergy, Unknown, 08/20/17) Patient History Past Medical History: see triage record Pertinent Family History: none Reviewed Nursing Documentation: PMH: Agreed; PSxH: Agreed Nursing Documentation-PMH Past Medical History: No History, Except For Hx Cardiac Problems: No Hx Cancer: No Hx Gastrointestinal Problems: Yes - [facility] 08/20/17 Hx Neurological Problems: No Review of Systems All Other Systems: negative except mentioned in HPI Physical Exam Vital Signs Date Time Temp Pulse Resp B/P (MAP) Pulse Ox O2 Delivery O2 Flow Rate FiO2 12/17/17 12:22 98.7 106 22 127/68 98 Room Air 98.8 Sp02 EP Interpretation: reviewed, normal General Appearance: alert Head: normocephalic, atraumatic Eyes: bilateral eye PERRL, bilateral eye EOMI ENT: hearing grossly normal, TMs + canals normal, uvula midline, dry mucus membranes Neck: full range of motion, supple, no meningismus, no bony tend Respiratory: lungs clear, normal breath sounds, no rhonchi, no respiratory distress, no retraction, no accessory muscle use Cardiovascular #1: normal peripheral pulses, regular rate, rhythm, no edema, no gallop, no JVD, no murmur Gastrointestinal: normal bowel sounds, no mass, non-distended, no guarding, no hernia, no pulsatile mass, no rebound, other - Ileostomy right lower abdomen no obvious erythema Genitourinary: no CVA tenderness Musculoskeletal: normal inspection Neurologic: oriented x3, responsive, professional services specialist III-XII nml as tested, motor strength/ tone normal, sensory intact Psychiatric: mood/affect normal Skin: normal color, no rash, warm/dry, palpation normal Lymphatic: normal inspection, no adenopathy Medical Decision Making Diagnostic Impression: Primary Impression: Small bowel obstruction Additional Impression: Ileostomy dysfunction ER Course With the history exam and presentation, multiple differentials considered, including but not limited to appendicitis, gastritis, cholecystitis, diverticulitis Patient appears to have findings consistent with chronic/subacute bowel obstruction Patient's specialized ileostomy requires specialty consultation and evaluation Patient also requiring IV hydration Admitted for further inpatient care Labs Test 12/20/17 07:26 12/21/17 05:00 12/22/17 04:10 White Blood Count 13.8 K/UL (4.8-10.8) 8.9 K/UL (4.8-10.8) 8.1 K/UL (4.8-10.8) Red Blood Count 3.78 M/UL (4.70-6.10) 3.24 M/UL (4.70-6.10) 3.37 M/UL (4.70-6.10) Hemoglobin 11.4 G/DL (14.2-18.0) 10.0 G/DL (14.2-18.0) 10.2 G/DL (14.2-18.0) Hematocrit 33.9 % (42.0-52.0) 29.5 % (42.0-52.0) 30.4 % (42.0-52.0) Mean Corpuscular Volume 90 FL (80-99) 91 FL (80-99) 90 FL (80-99) Mean Corpuscular Hemoglobin 30.1 PG (27.0-31.0) 30.7 PG (27.0-31.0) 30.2 PG (27.0-31.0) Mean Corpuscular Hemoglobin Concent 33.6 G/DL (32.0-36.0) 33.8 G/DL (32.0-36.0) 33.4 G/DL (32.0-36.0) Red Cell Distribution Width 13.0 % (11.6-14.8) 13.1 % (11.6-14.8) 13.2 % (11.6-14.8) Platelet Count 324 K/UL (150-450) 300 K/UL (150-450) 316 K/UL (150-450) Mean Platelet Volume 6.9 FL (6.5-10.1) 6.4 FL (6.5-10.1) 6.1 FL (6.5-10.1) Neutrophils (%) (Auto) 82.1 % (45.0-75.0) 63.6 % (45.0-75.0) 61.1 % (45.0-75.0) Lymphocytes (%) (Auto) 10.2 % (20.0-45.0) 22.9 % (20.0-45.0) 22.9 % (20.0-45.0) Monocytes (%) (Auto) 7.1 % (1.0-10.0) 10.7 % (1.0-10.0) 8.4 % (1.0-10.0) Eosinophils (%) (Auto) 0.3 % (0.0-3.0) 2.3 % (0.0-3.0) 6.4 % (0.0-3.0) Basophils (%) (Auto) 0.3 % (0.0-2.0) 0.6 % (0.0-2.0) 1.2 % (0.0-2.0) Sodium Level 141 MMOL/L (136-145) 141 MMOL/L (136-145) 138 MMOL/L (136-145) Potassium Level 4.0 MMOL/L (3.5-5.1) 4.0 MMOL/L (3.5-5.1) 3.9 MMOL/L (3.5-5.1) Chloride Level 105 MMOL/L (98-107) 107 MMOL/L (98-107) 105 MMOL/L (98-107) Carbon Dioxide Level 32 MMOL/L (21-32) 29 MMOL/L (21-32) 28 MMOL/L (21-32) Anion Gap 4 mmol/L (5-15) 5 mmol/L (5-15) 5 mmol/L (5-15) Blood Urea Nitrogen 8 mg/dL (7-18) 7 mg/dL (7-18) 5 mg/dL (7-18) Creatinine 0.7 MG/DL (0.55-1.30) 0.7 MG/DL (0.55-1.30) 0.6 MG/DL (0.55-1.30) Estimat Glomerular Filtration Rate > 60 mL/min (>60) > 60 mL/min (>60) > 60 mL/min (>60) Glucose Level 115 MG/DL (74-106) 127 MG/DL (74-106) 124 MG/DL (74-106) Calcium Level 8.8 MG/DL (8.5-10.1) 8.8 MG/DL (8.5-10.1) 8.7 MG/DL (8.5-10.1) Phosphorus Level 3.3 MG/DL (2.5-4.9) Magnesium Level 1.8 MG/DL (1.8-2.4) Last Vital Signs Date Time Temp Pulse Resp B/P (MAP) Pulse Ox O2 Delivery O2 Flow Rate FiO2 12/17/17 12:22 98.7 106 22 127/68 98 Room Air 98.8 Status: improved Disposition: ADMITTED INPATIENT Condition: Serious Virginia Matthews DO Dec 17, 2017 12:27
[2017-12-17 12:42] VITALS: BP 127/68
[2017-12-17 12:52] LABS: BASOPHILS % (AUTO) 1.1 % (0.0-2.0); EOSINOPHILS % (AUTO) 1.3 % (0.0-3.0); HEMATOCRIT 42.2 % (42.0-52.0); HEMOGLOBIN 13.9 G/DL (14.2-18.0); LYMPHOCYTES % (AUTO) 18.2 % (20.0-45.0); MEAN CORPUSCULAR VOLUME 89 FL (80-99); MONOCYTES % (AUTO) 9.1 % (1.0-10.0); NEUTROPHILS % (AUTO) 70.3 % (45.0-75.0); PLATELET COUNT 387 K/UL (150-450); RED BLOOD COUNT 4.72 M/UL (4.70-6.10); RED CELL DISTRIBUTION WIDTH 12.3 % (11.6-14.8); WHITE BLOOD COUNT 4.8 K/UL (4.8-10.8)
[2017-12-17 13:08] LABS: ANION GAP 4 mmol/L (5-15); BLOOD UREA NITROGEN 6 mg/dL (7-18); CALCIUM 9.5 MG/DL (8.5-10.1); CARBON DIOXIDE 33 MMOL/L (21-32); CHLORIDE 101 MMOL/L (98-107); CREATININE 0.8 MG/DL (0.55-1.30); POTASSIUM 4.1 MMOL/L (3.5-5.1); SODIUM 138 MMOL/L (136-145)
[2017-12-17 13:14] LABS: ALANINE AMINOTRANSFERASE 29 U/L (12-78); ALBUMIN 3.6 G/DL (3.4-5.0); ALBUMIN/GLOBULIN RATIO 0.9 (1.0-2.7); ALKALINE PHOSPHATASE 160 U/L (46-116); ASPARTATE AMINO TRANSFERASE 41 U/L (15-37); BILIRUBIN,TOTAL 0.5 MG/DL (0.2-1.0)
[2017-12-17] MEDS ORDERED: Hydromorphone 0.5mg/0.5ml inj IVP ONE (13:15)
[2017-12-17] MEDS ORDERED: Heparin 2000 units/Ns 1000ml INJ PRN (14:00)
[2017-12-17] MEDS ORDERED: Lidocaine 1% Plain 30 ml INJ PRN (14:00)
[2017-12-17 15:20] VITALS: BP 117/71
--- NOTE | 2017-12-17 15:41 | General Progress Note ---
Progress Note Progress Note H&P dictated. Recurrent small bowel obstruction in past week due to inability to catheterize his Stoll Continent Ileostomy. He has had 2 ER visits with admission to 2 different hospitals and underwent pouich endoscopy twice with placement of a 24Fr echols catheter over the wire. ?pouch inflamed per report of patient with angulation at 5cm into access segment. Now the tube keeps pushing out and he cannot eat due to nausea, distention, cramping abdominal pain Weight used to be 179lbs, recently as low as 140lbs. Abdomen soft, mildly distended, healed incisions, stoma low in RLQ with catheter pushing out 3inches and no effluent since last night per patient Catheter manipulated further in, releasing suture, and 200cc effluent aspirated/ drained Has mild tachycardia 106 in ER now 100. WBC 4800 Hgb 13.9 (likely hemoconcentrated) BUN 6 Cr 0.8 albumin 3.6 Denies taking any meds/drugs prior to his difficulty intubating this past week. Imp. Recurrent SBO due to malfunctioning continent ileostomy with inability to intubate Plan; IV hydration NPO Pouch catheter to continuous drainage with q3h flush by RN Dual lumen PIC line due to extremely limited venous access f/u labs in AM after hydration surgery tomorrow - laparotomy and revision Stoll pouch access segment and stoma Rolando Webb MD Dec 17, 2017 15:41
[2017-12-17] MEDS: Neomycin Sulfate 500mg Tab ORAL SCH ×2 (15:49→19:52)
[2017-12-17 16:00] VITALS: BP 107/67
[2017-12-17] MEDS: D5 1/2NS w/KCl 20mEq 1,000 ML IV SCH (16:00)
[2017-12-17] MEDS: Hydromorphone 0.5mg/0.5ml inj IVP PRN ×3 (16:48→22:02)
[2017-12-17] MEDS ORDERED: D5 1/2NS w/KCl 20mEq 1,000 ML IV SCH (18:00)
[2017-12-17] MEDS: Dyna-Hex 2% Top Sol 2oz TOPIC SCH (19:57)
[2017-12-17 20:21] VITALS: BP 130/74
[2017-12-17 22:27] LABS: APPEARANCE,URINE CLEAR; BILIRUBIN, URINE NEGATIVE (NEGATIVE); GLUCOSE, URINE (UA) NEGATIVE (NEGATIVE); KETONES,URINE 2+ (NEGATIVE); LEUKOCYTE ESTERASE ,URINE 1+ (NEGATIVE); NITRITE,URINE NEGATIVE (NEGATIVE); PH,URINE 8 (4.5-8.0); PROTEIN,URINE 2+ (NEGATIVE); UROBILINOGEN,URINE NORMAL MG/DL (0.0-1.0)
[2017-12-17 22:30] LABS: COLOR,URINE YELLOW
[2017-12-18] VITALS (16 sets, daily range): BP systolic 112–136; BP diastolic 67–82
[2017-12-18] MEDS ORDERED: Ampicillin/Sulbactam Sod 3 GM in D5W 110 ML IV SCH ×2
[2017-12-18] MEDS: Hydromorphone 0.5mg/0.5ml inj IVP PRN ×9 (00:08→17:40)
[2017-12-18] MEDS: D5 1/2NS w/KCl 20mEq 1,000 ML IV SCH ×2 (00:14→04:19)
[2017-12-18 05:22] LABS: BASOPHILS % (AUTO) 0.8 % (0.0-2.0); EOSINOPHILS % (AUTO) 1.7 % (0.0-3.0); HEMATOCRIT 38.6 % (42.0-52.0); HEMOGLOBIN 12.8 G/DL (14.2-18.0); LYMPHOCYTES % (AUTO) 11.6 % (20.0-45.0); MEAN CORPUSCULAR VOLUME 89 FL (80-99); MONOCYTES % (AUTO) 7.3 % (1.0-10.0); NEUTROPHILS % (AUTO) 78.6 % (45.0-75.0); PLATELET COUNT 348 K/UL (150-450); RED BLOOD COUNT 4.33 M/UL (4.70-6.10); RED CELL DISTRIBUTION WIDTH 12.3 % (11.6-14.8); WHITE BLOOD COUNT 6.3 K/UL (4.8-10.8)
[2017-12-18 05:47] LABS: INR 1.1 (0.9-1.1)
[2017-12-18 06:05] LABS: % IRON SATURATION 8 % (15-50); IRON 20 ug/dL (50-175); TOTAL IRON BINDING CAPACITY 238 ug/dL (250-450)
[2017-12-18] MEDS ORDERED: Ampicillin/Sulbactam Sod 3 GM in D5W 110 ML IVPB SCH (08:00)
[2017-12-18] MEDS: Dyna-Hex 2% Top Sol 2oz TOPIC SCH ×3 (08:00→20:16)
[2017-12-18] MEDS ORDERED: Heparin 2000 units/Ns 1000ml INJ PRN (08:00)
[2017-12-18] MEDS ORDERED: Lidocaine 1% Plain 30 ml INJ PRN (08:00)
--- NOTE | 2017-12-18 08:15 | History and Physical Report ---
DATE OF ADMISSION FROM EMERGENCY ROOM: 12/17/2017 HISTORY OF PRESENT ILLNESS: The patient is a 27-year-old male, in overall fair health, with one week of recurrent small bowel obstruction requiring several emergency room visits and hospitalizations in [facility] where he lives because of small bowel obstruction caused by his inability to intubate his Stoll type of Kock pouch continent ileostomy. The patient developed ulcerative colitis and in 2013 underwent total colectomy with ileoanal J-pouch as a 3-stage procedure over the course of one year. He developed chronic severe pouchitis and in November 2016 underwent resection of his failed J-pouch with abdominoperineal proctectomy and creation of a Gladys ileostomy at [facility]. Pathology revealed no evidence of Crohn's disease. One week later he required laparotomy with abdominal washout and evacuation of rectus hematoma related to drain site bleeding. On 08/21/2017 the patient underwent surgery to convert his malfunctioning conventional ileostomy to a Stoll continent intestinal reservoir, a modification of the Kock pouch continent ileostomy. He developed inability to intubate approximately one week ago and went to the emergency room in the hospital where he lives in [facility]. Endoscopy was performed and a wire placed into the pouch with the catheter advanced over the wire. He went home and several hours later, the suture holding the catheter according to the patient tore out and the catheter came out and again, he could not intubate. He went back to a different hospital emergency room, again admitted as an emergency, again underwent endoscopy with insertion of a wire and the catheter over the wire and now, this catheter keeps popping out and is not draining. He presented to the emergency room with abdominal pain and distention and signs of dehydration with tachycardia. OPERATIONS: See above MEDICATIONS TAKEN RECENTLY: None. He denies any use of opiates, which has been a problem for him. ALLERGIES: He is intolerant of Toradol, fentanyl, and Lomotil. He has stated in the past he is allergic to morphine, but he has received morphine without any difficulties. REVIEW OF SYSTEMS: (1)The patient has a history of panic attacks. (2) The patient prior to surgery in August 2017 weighed 170 pounds, his weight has gone down as low as 140 pounds causing redundancy and angulation of the access segment leading from the stoma into the pouch. He has been told by the recent pouch endoscopy doctors that he has this angulation about 5cm deep. PHYSICAL EXAMINATION: GENERAL: The patient is 5 feet 11 inches and approximately 150 pounds as he has gained some weight recently with supplements. VITAL SIGNS: Blood pressure within normal limits. Pulse 106 HEENT: Within normal limits. LUNGS: Clear. HEART: Regular rhythm. BREASTS: Without masses. ABDOMEN: Mildly distended and tender in the lower abdomen and well-healed incisions. The stoma is low in the right lower quadrant with a 24-J[place]ican De Leon catheter within it. I pushed the catheter further into the pouch and was able to aspirate 200 mL of effluent. GENITOURINARY: Testes and scrotum negative. RECTAL: Status post proctectomy. EXTREMITIES: Without edema. NEUROLOGIC: Physiologic. IMPRESSION: 1. Recurrent small bowel obstruction due to inability to self intubate his Stoll continent ileostomy. 2. Recent severe weight loss causing angulation and redundancy of the Stoll pouch access segment. 3. History of ulcerative colitis. 4. Status post multiple abdominal operations. 4.1. Total colectomy with ileoanal J-pouch as a 3-stage procedure over 1 year in 2013. 4.2. Resection of failed J-pouch with abdominoperineal proctectomy and creation of Gladys ileostomy on 11/14/[address] [facility]. 4.3. Laparotomy with abdominal washout and evacuation of rectus hematoma related to drain site bleeding on 11/21/2016. 4.4. Creation of Stoll continent ileostomy with temporary catheter gastrostomy on 08/21/2017. PLAN: The patient will require placement of a dual lumen PICC line, as he has almost no venous access to start a peripheral intravenous. His laboratory studies revealed white count 4800 and hemoglobin 13.9, which indicates likely hemoconcentration and albumin 3.6. The patient will receive vigorous hydration and followup laboratory studies to see what his true hemoglobin and albumin are. BUN and creatinine normal. He will be prepared for surgery which will include laparotomy and takedown of the stoma and revision of Stoll pouch to alllow him to intubate without difficulty. I have had a full discussion with the patient regarding his problem, the nature of the surgery, indications, alternatives, options, and risks including bleeding, infection, injury to adjacent structures or organs, possible gastrostomy, possible need for additional subsequent revisions of his Stoll pouch etc. All questions have been answered. He understands and agrees to proceed. Rolando Webb M.D. DR: ANGELO JOB#: [id number] CC: MARIZA
[2017-12-18 08:18] LABS: ALANINE AMINOTRANSFERASE 23 U/L (12-78); ALBUMIN 3.2 G/DL (3.4-5.0); ALBUMIN/GLOBULIN RATIO 0.9 (1.0-2.7); ALKALINE PHOSPHATASE 135 U/L (46-116); ANION GAP 8 mmol/L (5-15); ASPARTATE AMINO TRANSFERASE 17 U/L (15-37); BILIRUBIN,TOTAL 0.4 MG/DL (0.2-1.0); BLOOD UREA NITROGEN 4 mg/dL (7-18); CALCIUM 8.8 MG/DL (8.5-10.1); CARBON DIOXIDE 27 MMOL/L (21-32); CHLORIDE 102 MMOL/L (98-107); CREATININE 0.8 MG/DL (0.55-1.30); FERRITIN 87 NG/ML (8-388); POTASSIUM 3.2 MMOL/L (3.5-5.1); SODIUM 137 MMOL/L (136-145)
[2017-12-18] MEDS ORDERED: PCA Morphine 1mg/ml 30 ML IV PRN ×3 (08:30→13:30)
[2017-12-18] MEDS ORDERED: ALPRAZolam 0.5mg tab ORAL PRN (08:49)
--- NOTE | 2017-12-18 09:00 | General Progress Note ---
Progress Note Progress Note AVSS Requiring IV Dilaudid q2h without exception. Stoll pouch catheter draining well. Labs after hydration: WBC 6300 Hgb 12.8 K 3.2 albumin 3.2 Iron 20 Ferritin 87 (8-388) B12 and folate okay For insertion of PIC line now Imp. Recurrent SBO due to inability to intubate Stoll Continent Ileostomy Dehydration - resolved Malnutrition Severe iron deficiency Plan: Surgery today for revision Stoll continent ileostomy Increase KCL TPN post-op Venofer 100mg IV daily Rolando Webb MD Dec 18, 2017 09:00
[2017-12-18] MEDS: D5 1/2NS w/KCl 40meq 1000ml 1,000 ML IV SCH ×2 (09:59→20:12)
--- NOTE | 2017-12-18 10:41 | Diagnostic Imaging Report ---
Indications: Needs long-term IV access Technique: Ultrasound confirms patent compressible right basilic vein. Total sterile technique, including sterile probe cover and sterile gel, hat, mask, sterile gown, large sterile drape, and preparation with 2% chlorhexidine utilized. Local anesthesia with 1% lidocaine. Under real-time ultrasound guidance, puncture is a vein using 21-gauge needle, documented and archived, passage 0.018 guidewire under direct fluoroscopy, which was used to determine appropriate catheter length, exchange for 5 Serbian peel-away sheath. 5 Serbian Bard dual-lumen power PICC cut to 44 cm. It was inserted through the peel-away sheath. Peel-away sheath and guidewire removed. Catheter fixed to the skin. Both catheter ports aspirated and flushed. Patient tolerated procedure well, without immediate complication. Digital radiograph documents satisfactory catheter tip position, at the cavoatrial junction. Total fluoroscopy time 0.2 minutes. Total dose area product 7 dGycm2 Total number of images: 3 Impression: Successful placement of right arm PICC under sonographic and fluoroscopic guidance, as described above.
[2017-12-18] MEDS: Neomycin Sulfate 500mg Tab ORAL SCH (11:05)
[2017-12-18] MEDS ORDERED: Ampicillin/Sulbactam Sod 3 GM in NS 110 ML IV SCH (12:00)
--- NOTE | 2017-12-18 12:49 | Anethesia Preoperative Eval ---
Anesthesia Pre-op PMH/ROS General Date of Evaluation: Dec 18, 2017 Anesthesiologist: Micheal ASA Score: ASA 2 Mallampati Score Class I : Soft palate, uvula, fauces, pillars visible Class II: Soft palate, uvula, fauces visible Class III: Soft palate, base of uvula visible Class IV: Only hard plate visible Mallampati Classification: Class I Surgeon: Jon Diagnosis: Malfunctioning lynne pouch Surgical Procedure: Laparotomy revision of lynne continent ileostomy Anesthesia History: none Family History: no anesthesia problems Allergies: Coded Allergies: ATROPINE (Verified Allergy, Unknown, 08/20/17) DIPHENOXYLATE (Verified Allergy, Unknown, 08/20/17) KETOROLAC (Verified Allergy, Unknown, 08/20/17) Medications: see eMAR Past Medical History Cardiovascular: Denies: HTN, CAD, [place], valve dz, arrhythmia, other Pulmonary: Denies: asthma, COPD, KIZZY, other Gastrointestinal/Genitourinary: Reports: other - UC s/p multiple abdominal surgeries; Denies: GERD, CRI, ESRD Neurologic/Psychiatric: Reports: depression/anxiety; Denies: dementia, CVA, TIA, other Endocrine: Denies: DM, hypothyroidism, steroids, other HEENT: Denies: cataract (L), cataract (R), glaucoma, CHEFORNAK (L), CHEFORNAK (R), other Hematology/Immune: Denies: anemia, DVT, bleeding disorder, other Musculoskeletal/Integumentary: Denies: OA, RA, DJD, DDD, edema, other PSxH Narrative: Multiple abdominal surgeries Anesthesia Pre-op Phys. Exam Physician Exam Last Vital Signs Date Time Temp Pulse Resp B/P (MAP) Pulse Ox O2 Delivery O2 Flow Rate FiO2 12/18/17 12:34 99.1 12/18/17 11:47 82 20 120/69 (86) 100 12/18/17 08:32 Room Air Constitutional: NAD Cardiovascular: RRR Respiratory: CTA Airway Exam Mallampati Score: Class I MO: full ROM: full Teeth: intact Anesthesia Pre-op A/P Labs Hematology Test 12/18/17 05:09 White Blood Count 6.3 K/UL (4.8-10.8) Red Blood Count 4.33 M/UL (4.70-6.10) L Hemoglobin 12.8 G/DL (14.2-18.0) L Hematocrit 38.6 % (42.0-52.0) L Mean Corpuscular Volume 89 FL (80-99) Mean Corpuscular Hemoglobin 29.6 PG (27.0-31.0) Mean Corpuscular Hemoglobin Concent 33.2 G/DL (32.0-36.0) Red Cell Distribution Width 12.3 % (11.6-14.8) Platelet Count 348 K/UL (150-450) Mean Platelet Volume 6.4 FL (6.5-10.1) L Neutrophils (%) (Auto) 78.6 % (45.0-75.0) H Lymphocytes (%) (Auto) 11.6 % (20.0-45.0) L Monocytes (%) (Auto) 7.3 % (1.0-10.0) Eosinophils (%) (Auto) 1.7 % (0.0-3.0) Basophils (%) (Auto) 0.8 % (0.0-2.0) Coagulation Test 12/18/17 05:09 Prothrombin Time 11.2 SEC (9.30-11.50) Prothromb Time International Ratio 1.1 (0.9-1.1) Activated Partial Thromboplast Time 28 SEC (23-33) Chemistry Test 12/18/17 05:09 Sodium Level 137 MMOL/L (136-145) Potassium Level 3.2 MMOL/L (3.5-5.1) L Chloride Level 102 MMOL/L (98-107) Carbon Dioxide Level 27 MMOL/L (21-32) Anion Gap 8 mmol/L (5-15) Blood Urea Nitrogen 4 mg/dL (7-18) L Creatinine 0.8 MG/DL (0.55-1.30) Estimat Glomerular Filtration Rate > 60 mL/min (>60) Glucose Level 121 MG/DL (74-106) H Calcium Level 8.8 MG/DL (8.5-10.1) Iron Level 20 ug/dL (50-175) L Total Iron Binding Capacity 238 ug/dL (250-450) L Percent Iron Saturation 8 % (15-50) L Unsaturated Iron Binding 218 ug/dL (112-346) Ferritin 87 NG/ML (8-388) Total Bilirubin 0.4 MG/DL (0.2-1.0) Aspartate Amino Transf (AST/SGOT) 17 U/L (15-37) Alanine Aminotransferase (ALT/SGPT) 23 U/L (12-78) Alkaline Phosphatase 135 U/L (46-116) H Total Protein 6.6 G/DL (6.4-8.2) Albumin 3.2 G/DL (3.4-5.0) L Globulin 3.4 g/dL Albumin/Globulin Ratio 0.9 (1.0-2.7) L Vitamin B12 Level 1402 PG/ML (193-986) H Folate 16.6 NG/ML (8.6-58.9) Studies Pre-op Studies: EKG - sr Risk Assessment & Plan Assessment: ASA II Plan: GA Status Change Before Surgery: No Pre-Antibiotics Drug: Guerda James MD Dec 18, 2017 12:49
[2017-12-18] MEDS ORDERED: Bacitracin 50000 Units Vial ONE (13:29)
[2017-12-18] MEDS ORDERED: NeoSporin Gu Irrig 1ml Amp IRRIG ONE (13:29)
[2017-12-18] MEDS ORDERED: PCA Education Pamphlet MISC ONE (13:30)
[2017-12-18] MEDS ORDERED: Rate Change PCA 1 Each MISC PRN (13:30)
--- NOTE | 2017-12-18 13:43 | Pre-Procedure Note/Attestation ---
Pre-Procedure Note/Attestation Complete Prior to Procedure Planned Procedure: not applicable Procedure Narrative: laparotomy with revision Stoll Continent Ileostomy pouch and stoma Indications for Procedure Pre-Operative Diagnosis: malfunctioning Stoll Continent Ileostomy with inability to intubate Attestation I attest that I discussed the nature of the procedure; its benefits; risks and complications; and alternatives (and the risks and benefits of such alternatives ), prior to the procedure, with the patient (or the patient's legal school admissions representative). I attest that, if there was a reasonable possibility of needing a blood transfusion, the patient (or the patient's legal school admissions representative) was given the [place] Department [employer] Services standardized written summary, pursuant to the [place] Blood Safety Act ([place] Health and Safety Code # 1645, as amended). I attest that I re-evaluated the patient just prior to the surgery and that there has been no change in the patient's H&P, except as documented below: none Rolando Webb MD Dec 18, 2017 13:43
--- NOTE | 2017-12-18 13:44 | Anethesia Preoperative Eval ---
Anesthesia Pre-op PMH/ROS General Date of Evaluation: Dec 18, 2017 Time of Evaluation: 07:10 Anesthesiologist: Ling ASA Score: ASA 3 Mallampati Score Class I : Soft palate, uvula, fauces, pillars visible Class II: Soft palate, uvula, fauces visible Class III: Soft palate, base of uvula visible Class IV: Only hard plate visible Mallampati Classification: Class II Surgeon: Jon Diagnosis: Mafunctioning continent pouch Surgical Procedure: Ex laparotomy revision of continent pouch Anesthesia History: PONV, emergence delirium, other - panic attac Social History: drug use - opioi seeking behavior Family History: no anesthesia problems Allergies: Coded Allergies: ATROPINE (Verified Allergy, Unknown, 08/20/17) DIPHENOXYLATE (Verified Allergy, Unknown, 08/20/17) FENTANYL (Verified Allergy, Unknown, 08/20/17) KETOROLAC (Verified Allergy, Unknown, 08/20/17) Medications: see eMAR Past Medical History Cardiovascular: Denies: HTN, CAD, SC, valve dz, arrhythmia, other Pulmonary: Denies: asthma, COPD, KIZZY, other Gastrointestinal/Genitourinary: Reports: other - h/o UC s/p total colectomy; Denies: GERD, CRI, ESRD Neurologic/Psychiatric: Reports: depression/anxiety; Denies: dementia, CVA, TIA, other Endocrine: Denies: DM, hypothyroidism, steroids, other HEENT: Denies: cataract (L), cataract (R), glaucoma, [place] (L), [place] (R), other Hematology/Immune: Reports: anemia - mild; Denies: DVT, bleeding disorder, other Musculoskeletal/Integumentary: Denies: OA, RA, DJD, DDD, edema, other PMH Narrative: unable to intubate presented with symptoms of small bowel obstruction PSxH Narrative: see H&P Anesthesia Pre-op Phys. Exam Physician Exam Last Vital Signs Date Time Temp Pulse Resp B/P (MAP) Pulse Ox O2 Delivery O2 Flow Rate FiO2 12/18/17 12:34 99.1 12/18/17 11:47 82 20 120/69 (86) 100 12/18/17 08:32 Room Air Constitutional: NAD Neurologic: CN 2-12 intact Cardiovascular: no M/R/G Respiratory: CTA Gastrointestinal: S/NT/ND Airway Exam Mallampati Score: Class II MO: full Neck: flexible ROM: full Teeth: intact Dentures: no upper, no lower Anesthesia Pre-op A/P Labs Hematology Test 12/18/17 05:09 White Blood Count 6.3 K/UL (4.8-10.8) Red Blood Count 4.33 M/UL (4.70-6.10) L Hemoglobin 12.8 G/DL (14.2-18.0) L Hematocrit 38.6 % (42.0-52.0) L Mean Corpuscular Volume 89 FL (80-99) Mean Corpuscular Hemoglobin 29.6 PG (27.0-31.0) Mean Corpuscular Hemoglobin Concent 33.2 G/DL (32.0-36.0) Red Cell Distribution Width 12.3 % (11.6-14.8) Platelet Count 348 K/UL (150-450) Mean Platelet Volume 6.4 FL (6.5-10.1) L Neutrophils (%) (Auto) 78.6 % (45.0-75.0) H Lymphocytes (%) (Auto) 11.6 % (20.0-45.0) L Monocytes (%) (Auto) 7.3 % (1.0-10.0) Eosinophils (%) (Auto) 1.7 % (0.0-3.0) Basophils (%) (Auto) 0.8 % (0.0-2.0) Coagulation Test 12/18/17 05:09 Prothrombin Time 11.2 SEC (9.30-11.50) Prothromb Time International Ratio 1.1 (0.9-1.1) Activated Partial Thromboplast Time 28 SEC (23-33) Chemistry Test 12/18/17 05:09 Sodium Level 137 MMOL/L (136-145) Potassium Level 3.2 MMOL/L (3.5-5.1) L Chloride Level 102 MMOL/L (98-107) Carbon Dioxide Level 27 MMOL/L (21-32) Anion Gap 8 mmol/L (5-15) Blood Urea Nitrogen 4 mg/dL (7-18) L Creatinine 0.8 MG/DL (0.55-1.30) Estimat Glomerular Filtration Rate > 60 mL/min (>60) Glucose Level 121 MG/DL (74-106) H Calcium Level 8.8 MG/DL (8.5-10.1) Iron Level 20 ug/dL (50-175) L Total Iron Binding Capacity 238 ug/dL (250-450) L Percent Iron Saturation 8 % (15-50) L Unsaturated Iron Binding 218 ug/dL (112-346) Ferritin 87 NG/ML (8-388) Total Bilirubin 0.4 MG/DL (0.2-1.0) Aspartate Amino Transf (AST/SGOT) 17 U/L (15-37) Alanine Aminotransferase (ALT/SGPT) 23 U/L (12-78) Alkaline Phosphatase 135 U/L (46-116) H Total Protein 6.6 G/DL (6.4-8.2) Albumin 3.2 G/DL (3.4-5.0) L Globulin 3.4 g/dL Albumin/Globulin Ratio 0.9 (1.0-2.7) L Vitamin B12 Level 1402 PG/ML (193-986) H Folate 16.6 NG/ML (8.6-58.9) Studies Pre-op Studies: EKG - nsr Risk Assessment & Plan Assessment: ASA 3 Plan: GA with ETT PONV prevention Status Change Before Surgery: No Pre-Antibiotics Drug: as scheduled Harpreet Dubon MD Dec 18, 2017 13:44
[2017-12-18] MEDS ORDERED: Propofol 200mg/20ml IV ONE (13:55)
[2017-12-18] MEDS ORDERED: Lidocaine 1% MPF 10mg/ml 5ml ONE (13:55)
[2017-12-18] MEDS ORDERED: fentaNYL 100 mcg/2 mL IV ONE (13:57)
[2017-12-18] MEDS ORDERED: LR 1000ml ONE (14:00)
[2017-12-18] MEDS ORDERED: Sterile Water Irrig 1000ml IRRIG ONE (14:00)
[2017-12-18] MEDS ORDERED: NS Irrig 1000ml ONE (14:00)
[2017-12-18] MEDS: Ampicillin/Sulbactam Sod 3 GM in NS 110 ML IVPB SCH ×2 (14:00→20:16)
[2017-12-18] MEDS ORDERED: Zemuron 50mg/5ml Inj IV ONE (14:00)
[2017-12-18] MEDS ORDERED: NS Irrig 4000ml IRRIG ONE (14:00)
[2017-12-18] MEDS ORDERED: Metoclopramide 10mg/2ml Inj ONE (14:36)
[2017-12-18] MEDS ORDERED: Dexamethasone 4mg/ml vial ONE (14:36)
[2017-12-18] MEDS ORDERED: Acetaminophen 650mg/20.3ml GT PRN (16:45)
[2017-12-18] MEDS ORDERED: LR 1000ml 1,000 ML IVLG SCH (16:47)
--- NOTE | 2017-12-18 16:47 | Immediate Post-Op Evaluation ---
Immediate Post-Op Evalulation Immediate Post-Op Evalulation Procedure: Laparotomy, revision lynne continent ileostomy Date of Evaluation: Dec 18, 2017 Time of Evaluation: 16:47 IV Fluids: 2L Blood Products: 0 Estimated Blood Loss: 200 Urinary Output: 155 Blood Pressure Systolic: 130 Blood Pressure Diastolic: 77 Pulse Rate: 83 Respiratory Rate: 16 O2 Sat by Pulse Oximetry: 100 Temperature (Fahrenheit): 98.4 Pain Score (1-10): 0 Nausea: No Vomiting: No Complications 0 Patient Status: awake, reacts, patent, none Hydration Status: adequate Drug: Unasyn and flagyl Given Within 1 Hr of Incision: Yes Guerda Marie MD Dec 18, 2017 16:47
--- NOTE | 2017-12-18 16:48 | Brief Operative Note ---
Immediate Post Operative Note Operative Note Pre-op Diagnosis: malfunctioning Stoll Continent Ileostomy with inability to intubate Procedure: laparotomy and revision Stoll Continent Ileostomy pouch and stoma Post-op Diagnosis: same Post-op Diagnosis: same as pre-op Findings: consistent w/pre-op dx studies Surgeon: mukesh Appliance Service Supervisor: derick Anesthesiologist: daray Anesthesia: general Specimen: yes - stoma Complications: none Condition: stable Fluids: see anesthesia record Estimated Blood Loss: volume - 200ml Drains: other - 28 Fr ileo; 18Fr gastrostomy Implant(s) used?: No Rolando Webb MD Dec 18, 2017 16:48
[2017-12-18] MEDS ORDERED: Midazolam 2mg/2ml Inj IVP PRN (17:00)
[2017-12-18] MEDS ORDERED: Labetalol 5mg/ml 20ml vial IV PRN (17:00)
[2017-12-18] MEDS ORDERED: LORazepam Inj 2mg/ml 1ml IV PRN (17:00)
[2017-12-18] MEDS ORDERED: DiphenhydrAMINE 50mg/ml Inj IVP PRN (17:00)
--- NOTE | 2017-12-18 18:00 | Operative Note - Dictated ---
DATE OF OPERATION: 12/18/2017 SURGEON: Rolando Webb M.D. WOOLEN TESTER SURGEON: Carrillo Neal M.D. ANESTHESIOLOGIST: Dr. Burton. TYPE OF ANESTHESIA: General endotracheal. PREOPERATIVE DIAGNOSES: 1. Malfunctioning Stoll continent ileostomy with inability to intubate and resulting small-bowel obstruction. 2. History of ulcerative colitis. 3. Status post multiple abdominal operations. 3.1. Total colectomy with ileoanal J-pouch as a 3-stage procedure over 1 year in 2013. 3.2. Resection of failed J-pouch with abdominoperineal proctectomy and creation of Gladys ileostomy on November 14, 2016, at [facility] for chronic severe pouchitis with no evidence of Crohn disease. 3.3. Laparotomy with abdominal washout and evacuation of rectus hematoma related to drain site bleeding on November 21, 2016, at [facility]. 3.4. Creation of Stoll continent ileostomy with temporary gastrostomy on August 21, 2017. POSTOPERATIVE DIAGNOSES: 1. Malfunctioning Stoll continent ileostomy with inability to intubate and resulting small-bowel obstruction. 2. History of ulcerative colitis. 3. Status post multiple abdominal operations. 3.1. Total colectomy with ileoanal J-pouch as a 3-stage procedure over 1 year in 2013. 3.2. Resection of failed J-pouch with abdominoperineal proctectomy and creation of Gladys ileostomy on November 14, 2016, at [facility] for chronic severe pouchitis with no evidence of Crohn disease. 3.3. Laparotomy with abdominal washout and evacuation of rectus hematoma related to drain site bleeding on November 21, 2016, at [facility]. 3.4. Creation of Stoll continent ileostomy with temporary gastrostomy on August 21, 2017. OPERATION PERFORMED: Laparotomy with revision of Stoll pouch stoma and access segment and yazidi of the intestinal collar. DESCRIPTION OF PROCEDURE: The patient was taken to the operating room and under general anesthesia with sequential compression device stockings and De Leon catheter in place and having received intravenous antibiotics, he was prepped and draped in usual fashion. Initially, a Tegaderm was placed over the stoma in the right lower quadrant. Previous midline incision was reopened from umbilicus to pubis and ultimately extended into the mid epigastrium because of adhesions. There were diffuse adhesions into the pelvis that were able to primarily be bluntly mobilized achieving hemostasis with cautery and protecting the bladder and ureters. The pouch was mobilized out of the pelvis and the afferent bowel identified. With some manipulation, I was able to insert a 28-Djiboutian De Leon catheter through the stoma into the pouch to help with mobilization. I then tested the pouch by manually occluding the afferent bowel and distending the pouch with 400 mL of saline. Upon removing the catheter, there was some incontinence. The catheter was reintroduced with some manipulation and the pouch decompressed. Now with a transversely oriented elliptical incision, the stoma was circumscribed and brought through into the abdominal cavity together with its mesentery. Now it was apparent that the pouch could be more fully mobilized and that the intestinal collar was no longer providing any constriction around the outer aspect of the valve segment. The collar was reconstituted with interrupted 3-0 silk sutures. The 28-Djiboutian De Leon catheter was able to readily be inserted into the pouch with the access segment placed on stretch. The pouch was pressure-tested again and there was no incontinence once the collar had been restored. The pouch was again decompressed. The bowel loops were mildly edematous and I felt recreating the gastrostomy for decompression would be appropriate as this patient would not tolerate a nasogastric tube. Through the same prior gastrostomy incision in the left upper quadrant, an 18-Djiboutian De Leon catheter was brought through the abdominal wall and placed into the stomach between 2-0 chromic pursestring suture with multiple sutures of 3-0 silk taken to tack the stomach to the anterior abdominal wall. The catheter was sutured in place with 2-0 silk. The abdominal cavity and pelvis were inspected and hemostasis was secured. Now, the stoma was brought through the same site in the right lower quadrant and placed on stretch. A 28-Djiboutian De Leon was maintained in the pouch. The redundancy was excised, nearly 3 cm of redundancy, and the stoma primarily matured with continuous 2-0 chromic locking sutures starting at the 3 and 9 o'clock positions. A very satisfactory stoma was achieved. The pouch laid back into the deep pelvis with the catheter appropriately positioned in the apex. It was marked at the level of the stoma with 3-0 silk and then the catheter was sutured to the skin with two sutures of 2-0 silk. The catheter was flushed and connected to gravity drainage bag as was the gastrostomy. Throughout the procedure, antibiotic-soaked laps were used to protect the abdominal wall and gloves were changed as indicated. After ascertaining that hemostasis was secured, the incision was closed in one layer with continuous #1 Prolene starting at both ends and inverting the knots. Subcutaneous tissue was irrigated with antibiotic solution and skin closed with arelis. Dry sterile dressings were applied. Final sponge and needle counts were correct. The patient tolerated the procedure well and left the operating room in good condition. Rolando Webb M.D. DR: Jay JOB#: [id number] CC:
[2017-12-18] MEDS: PCA shift volume MISC SCH (19:21)
[2017-12-18] MEDS: Iron Sucrose 100 MG in NS 55 ML IV SCH (21:25)
--- NOTE | 2017-12-18 22:00 | Consultation ---
DATE OF CONSULTATION: 12/18/2017 CONSULTING PHYSICIAN: Jeremy Gillis M.D. REFERRING PHYSICIAN: Rolando Webb M.D. REASON FOR CONSULTATION: Acute pain consult. HISTORY OF PRESENT ILLNESS: Dear Dr. Rolando Webb, Thank you kindly for consulting me to evaluate and render an opinion as to how to proceed in the management of the patient's acute postoperative abdominal pain after his gastrointestinal surgery with you today. The patient is a 27-year-old gentleman, who I saw at the bedside with nurse RN, Aubree, along with psychiatrist. I also discussed the case with yourself in detail Dr. Webb to help improve this patient's pain complaints. The patient had previous surgery with you and required very high doses of opioid analgesics to help with his postop pain. The patient was recently using Suboxone up until 3 weeks ago for chronic pain syndrome. You consulted me to help with his opioid management in the context of the above noted medical condition. I performed detailed history and physical examination. I spent over 75 minutes in consultation with an additional 30 minutes in medical record review. I reviewed multiple records from today's date of surgery, 12/18/2017 at [facility] including records from the nursing department, the pharmacy department, and the surgery suite. PAST MEDICAL HISTORY: 1. Acute postoperative abdominal pain status post revision abdominal surgery by Dr. Rolando Webb in December 2017. 2. History of Suboxone usage in November 2017 for opioid-dependent pain syndrome. 3. Gastrointestinal disorder managed by Dr. Webb. PAST SURGICAL HISTORY: Previous abdominal surgery Dr. Webb. MEDICATIONS AT HOME: The patient quit using Suboxone cold turkey 3 weeks ago. He admits that he was doing a considerable opioid withdrawal. ALLERGIES: Atropine, Toradol, and diphenoxylate. SOCIAL HISTORY: The patient denies any marijuana usage. He denies crystal methamphetamine usage. Urine toxicology screen was performed yesterday, which was negative for all agents. REVIEW OF SYSTEMS: Per attending physician. PHYSICAL EXAMINATION: GENERAL: Age 27, height 180 pounds, body mass index 22, and weight is 70 kilograms. Afebrile. Pulse 82, respirations 20, blood pressure 120/69, and oxygen saturation 100%. GENERAL: This is a pale-appearing 27-year-old gentleman. A detailed abdominal exam per Dr. Webb. CARDIOPULMONARY: Within normal limits. HEART: Regular rate and rhythm. GENITOURINARY: Deferred. PICC line in place with clean dressing. DIAGNOSTIC TESTING: On 12/18/2017 shows white count 6, hematocrit 39, and platelets 348,000. Sodium 137, potassium 3.2, chloride 102, bicarb 27, BUN 4, creatinine 0.8, and glucose 121. AST 17, ALT 23, and alkaline phosphatase 135. Total protein 6.6. Albumin 3.2. INR 1.1. PTT 28. Urinalysis with 1+ leukocyte esterase, few bacteria, and 2+ ketones. Urinalysis dated 12/17/2017 is negative for marijuana, negative for cocaine, negative for amphetamines, and negative for all agents. IMPRESSION: 1. Acute postoperative abdominal pain status post revision abdominal surgery by Dr. Rolando Webb in December 2017. 2. History of Suboxone usage in November 2017 for opioid-dependent pain syndrome. 3. Gastrointestinal disorder managed by Dr. Webb. TREATMENT RECOMMENDATIONS: Based up on the patient's Suboxone usage recently and his history of tolerating morphine in the past, I will place him on a high dose morphine TIER IN to start with the 5 mg TIER IN demand dose with a 12-minute lockout and a 30 mg 4-hour limit. There will be no underlying continuous rate. I have added a breakthrough dose of Dilaudid 1.5 mg subcutaneously every three hours p.r.n. for severe breakthrough pain. The patient does admit that he was given a 0.5 mg intravenous dose recently with minimal effect. This patient has a known tolerance and tachyphylaxis to opioids and I would expect a low doses of opioids to be ineffective. Psychiatric recommendations to start Cymbalta daily with a nightly dose of Seroquel are appreciated. A psychiatric recommendations will continue to be followed. At this time, I will hold off on oral analgesics until we can determine the patient's gastrointestinal function and how well he tolerates subcutaneous Dilaudid breakthrough shots with the morphine TIER IN. Transition on to oral agents will need to be readdressed in the future after surgery. I recommended incentive spirometer to encourage good pulmonary toilet. I will defer DVT prophylaxis to Dr. Webb. Jeremy Gillis M.D. DR: SARAH JOB#: [id number] CC:
--- NOTE | 2017-12-18 22:57 | Consultation ---
History of Present Illness General Date patient seen: Dec 18, 2017 Chief Complaint: General Complaint Present Illness HPI 27-year-old male, with hx of UC and depression and anxiety with one week of recurrent small bowel obstruction. the pt was seen by this md before and he responded well that I started him however the meds were stopped by ot psych and the pt has decompensated. Allergies: Coded Allergies: ATROPINE (Verified Allergy, Unknown, 08/20/17) DIPHENOXYLATE (Verified Allergy, Unknown, 08/20/17) KETOROLAC (Verified Allergy, Unknown, 08/20/17) Medication History Scheduled No Known Medications* (NKM - No Known Medications*), 0 ., (Reported) Patient History Limited by: medical condition History Provided By: Patient, Medical Record, PMD Healthcare decision maker Resuscitation status Full Code Advanced Directive on File Past Medical/Surgical History Past Medical/Surgical History: (1) Ileostomy dysfunction (2) Recurrent bowel obstruction Review of Systems Psychiatric: Reports: prior hx, anxiety, depressed feelings, emotional problems Physical Exam General Appearance: no apparent distress, alert Neurologic: oriented x 3, responsive, depressed affect Last 24 Hour Vital Signs Date Time Temp Pulse Resp B/P (MAP) Pulse Ox O2 Delivery O2 Flow Rate FiO2 12/18/17 20:00 98.2 79 19 121/74 (90) 100 98.2 12/18/17 20:00 19 12/18/17 20:00 98.2 79 19 121/74 (90) 100 98.2 12/18/17 19:30 98.1 76 19 129/75 (93) 100 98.1 12/18/17 19:00 20 12/18/17 18:45 20 12/18/17 18:45 97.2 82 20 125/68 (87) 100 97.2 12/18/17 18:15 15 12/18/17 18:10 97.9 12/18/17 18:10 97.9 12/18/17 18:05 97.9 88 18 117/79 100 Nasal Cannula 3 97.9 12/18/17 18:00 20 12/18/17 17:55 79 17 127/74 100 Nasal Cannula 3 12/18/17 17:45 98.3 12/18/17 17:45 15 12/18/17 17:40 75 15 130/78 100 Nasal Cannula 3 12/18/17 17:40 98.3 12/18/17 17:24 98.3 12/18/17 17:24 72 16 133/81 100 Nasal Cannula 3 12/18/17 17:15 89 17 132/79 100 Simple Mask 6 12/18/17 17:00 76 16 131/82 100 Simple Mask 6 12/18/17 16:52 81 20 136/82 100 Simple Mask 6 12/18/17 16:47 80 23 133/82 100 Simple Mask 6 12/18/17 16:47 209.1 83 16 100 12/18/17 16:42 98.4 82 16 130/77 100 Simple Mask 6 98.4 12/18/17 12:34 99.1 12/18/17 11:47 99.1 82 20 120/69 (86) 100 99.1 12/18/17 10:57 99.2 12/18/17 10:27 99.2 12/18/17 08:32 Room Air 12/18/17 08:17 99.2 12/18/17 08:00 99.7 82 19 120/67 (84) 100 99.7 12/18/17 04:34 99.2 83 17 120/75 (90) 100 99.2 12/18/17 00:00 99.5 82 19 112/70 (84) 99 99.5 Intake and Output 12/17/17 12/18/17 19:00 07:00 Intake Total 450 ml 1560 ml Output Total 1145 ml Balance 450 ml 415 ml Intake Oral 0 ml 60 ml IV Total 450 ml 1500 ml Output Urine Total 500 ml Other 645 ml Laboratory Tests Test 12/18/17 05:09 White Blood Count 6.3 K/UL (4.8-10.8) Red Blood Count 4.33 M/UL (4.70-6.10) L Hemoglobin 12.8 G/DL (14.2-18.0) L Hematocrit 38.6 % (42.0-52.0) L Mean Corpuscular Volume 89 FL (80-99) Mean Corpuscular Hemoglobin 29.6 PG (27.0-31.0) Mean Corpuscular Hemoglobin Concent 33.2 G/DL (32.0-36.0) Red Cell Distribution Width 12.3 % (11.6-14.8) Platelet Count 348 K/UL (150-450) Mean Platelet Volume 6.4 FL (6.5-10.1) L Neutrophils (%) (Auto) 78.6 % (45.0-75.0) H Lymphocytes (%) (Auto) 11.6 % (20.0-45.0) L Monocytes (%) (Auto) 7.3 % (1.0-10.0) Eosinophils (%) (Auto) 1.7 % (0.0-3.0) Basophils (%) (Auto) 0.8 % (0.0-2.0) Prothrombin Time 11.2 SEC (9.30-11.50) Prothromb Time International Ratio 1.1 (0.9-1.1) Activated Partial Thromboplast Time 28 SEC (23-33) Sodium Level 137 MMOL/L (136-145) Potassium Level 3.2 MMOL/L (3.5-5.1) L Chloride Level 102 MMOL/L (98-107) Carbon Dioxide Level 27 MMOL/L (21-32) Anion Gap 8 mmol/L (5-15) Blood Urea Nitrogen 4 mg/dL (7-18) L Creatinine 0.8 MG/DL (0.55-1.30) Estimat Glomerular Filtration Rate > 60 mL/min (>60) Glucose Level 121 MG/DL (74-106) H Calcium Level 8.8 MG/DL (8.5-10.1) Iron Level 20 ug/dL (50-175) L Total Iron Binding Capacity 238 ug/dL (250-450) L Percent Iron Saturation 8 % (15-50) L Unsaturated Iron Binding 218 ug/dL (112-346) Ferritin 87 NG/ML (8-388) Total Bilirubin 0.4 MG/DL (0.2-1.0) Aspartate Amino Transf (AST/SGOT) 17 U/L (15-37) Alanine Aminotransferase (ALT/SGPT) 23 U/L (12-78) Alkaline Phosphatase 135 U/L (46-116) H Total Protein 6.6 G/DL (6.4-8.2) Albumin 3.2 G/DL (3.4-5.0) L Globulin 3.4 g/dL Albumin/Globulin Ratio 0.9 (1.0-2.7) L Vitamin B12 Level 1402 PG/ML (193-986) H Folate 16.6 NG/ML (8.6-58.9) Height (Feet): 5 Height (Inches): 11.00 Weight (Pounds): 154 Medications Current Medications Medications (Trade) Dose Ordered Sig/Raul Route PRN Reason Start Time Stop Time Status Last Admin Dose Admin Acetaminophen (Tylenol) 1,000 mg Q4H PRN GT temp>100.2 or headache 12/18/17 16:45 01/17/18 16:44 Alprazolam (Xanax) 1 mg Q6H PRN ORAL For Anxiety 12/18/17 08:49 12/25/17 08:48 12/18/17 08:55 Ampicillin Sodium/ Sulbactam Sodium 3 gm/Sodium Chloride 110 ml @ 220 mls/hr Q6H IVPB 12/18/17 14:00 12/25/17 13:59 12/18/17 20:16 Chlorhexidine Gluconate (Lenore-Hex 2%) 1 applic DAILY@2000 TOPIC 12/18/17 08:00 01/17/18 07:59 12/18/17 20:00 Dextrose/ Electrolytes 1,000 ml @ 100 mls/hr Q10H IV 12/18/17 10:00 01/17/18 09:59 12/18/17 20:12 Duloxetine HCl (Cymbalta) 30 mg DAILY ORAL 12/19/17 09:00 01/18/18 08:59 Heparin Sodium/ Sodium Chloride (Heparin 2000 units/Ns 1000ml premix) 2,000 unit ONCE PRN INJ for picc line placement 12/18/17 08:00 12/20/17 07:59 Hydromorphone HCl (Dilaudid) 1.5 mg Q3H PRN SUBQ Severe Breakthru Pain (>7) 12/18/17 13:13 12/25/17 13:12 12/18/17 21:13 Iron Sucrose 100 mg/Sodium Chloride 60 ml @ 240 mls/hr BEDTIME IV 12/18/17 21:00 12/22/17 21:14 12/18/17 21:25 Lidocaine HCl (Xylocaine 1% 30ml) 30 ml ONCE PRN INJ for picc line placement 12/18/17 08:00 12/20/17 07:59 Metronidazole 100 ml @ 100 mls/hr Q6H IVPB 12/18/17 08:00 12/25/17 07:59 12/18/17 20:13 Miscellaneous Medication (PATTERN GRADER CUTTER Rate Change) 1 ea PRN MISC rate change 12/18/17 13:30 12/20/17 13:29 Miscellaneous Medication (PATTERN GRADER CUTTER shift volume) 1 ea Q12HR@0700,1900 MISC 12/18/17 19:00 12/20/17 18:59 12/18/17 19:21 Morphine Sulfate 30 ml @ 0 mls/hr PATTERN GRADER CUTTER Protocol PRN IV For Pain 12/18/17 13:30 12/20/17 13:29 12/18/17 17:45 Ondansetron HCl (Zofran) 4 mg Q4H PRN IVP Nausea & Vomiting 12/18/17 16:45 01/17/18 16:44 Quetiapine Fumarate (SEROquel) 50 mg BEDTIME ORAL 12/18/17 21:00 01/17/18 20:59 12/18/17 21:23 Assessment/Plan Status: stable Assessment/Plan MDD Anxiety d/o Cymbalta 30mg qam Seroquel 25mg qhs Nae Camara MD Dec 18, 2017 22:57
[2017-12-19] VITALS: BP 109/65
[2017-12-19] MEDS ORDERED: NovoLOG Insulin Flexpen SUBQ SCH
[2017-12-19] MEDS: Ampicillin/Sulbactam Sod 3 GM in NS 110 ML IVPB SCH ×4 (01:37→20:30)
[2017-12-19 04:00] VITALS: BP 113/58
[2017-12-19] MEDS: D5 1/2NS w/KCl 40meq 1000ml 1,000 ML IV SCH ×3 (05:44→21:30)
[2017-12-19 06:55] LABS: HEMATOCRIT 29.5 % (42.0-52.0); HEMOGLOBIN 9.8 G/DL (14.2-18.0); MEAN CORPUSCULAR VOLUME 91 FL (80-99); PLATELET COUNT 269 K/UL (150-450); RED BLOOD COUNT 3.23 M/UL (4.70-6.10); RED CELL DISTRIBUTION WIDTH 12.9 % (11.6-14.8); WHITE BLOOD COUNT 12.9 K/UL (4.8-10.8)
[2017-12-19] MEDS: PCA shift volume MISC SCH ×2 (07:27→19:00)
[2017-12-19 08:00] VITALS: BP 125/60
[2017-12-19] MEDS ORDERED: MS Contin 15mg tab ORAL SCH (08:20)
[2017-12-19] MEDS ORDERED: PCA Morphine 1mg/ml 30 ML IV PRN (08:30)
[2017-12-19] MEDS ORDERED: Rate Change PCA 1 Each MISC PRN ×2 (08:30)
[2017-12-19 08:41] LABS: ANION GAP 4 mmol/L (5-15); BLOOD UREA NITROGEN 5 mg/dL (7-18); CALCIUM 8.5 MG/DL (8.5-10.1); CARBON DIOXIDE 28 MMOL/L (21-32); CHLORIDE 105 MMOL/L (98-107); CREATININE 0.7 MG/DL (0.55-1.30); POTASSIUM 4.2 MMOL/L (3.5-5.1); SODIUM 137 MMOL/L (136-145)
--- NOTE | 2017-12-19 08:46 | General Progress Note ---
Progress Note Progress Note AVSS Appreciate Dr. Gillis and Dr. Camara consultations/treatments. 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 Ileus Atelectasis Malnutrition Severe iron deficiency Plan; NPO TPN Venofer Pulm. toilet/mobilize Rolando Webb MD Dec 19, 2017 08:46
[2017-12-19] MEDS: DULoxetine 30mg cap ORAL SCH (09:01)
--- NOTE | 2017-12-19 09:04 | 48 Hour Post Anesthesia Eval ---
Post Anesthesia Evaluation Procedure: Laparotomy, revision lynne continent ileostomy Date of Evaluation: Dec 19, 2017 Time of Evaluation: 09:02 Blood Pressure Systolic: 112 0: 58 Pulse Rate: 78 Respiratory Rate: 20 Temperature (Fahrenheit): 97.8 O2 Sat by Pulse Oximetry: 98 Airway: patent Nausea: No Vomiting: No Pain Intensity: 4 Hydration Status: adequate Cardiopulmonary Status: stable Mental Status/LOC: patient returned to baseline Follow-up Care/Observations: n/a Post-Anesthesia Complications: none Follow-up care needed: N/A Harpreet Dubon MD Dec 19, 2017 09:04
[2017-12-19 12:00] VITALS: BP 91/53
[2017-12-19] MEDS: PCA Morphine 1mg/ml 30 ML IV PRN ×2 (13:55→18:32)
[2017-12-19 16:00] VITALS: BP 119/58
[2017-12-19] MEDS ORDERED: Tubing IV Secondary IV ONE (16:49)
[2017-12-19] MEDS ORDERED: NS 500ML ONE (16:49)
[2017-12-19] MEDS ORDERED: NS Irrig 1000ml ONE (16:49)
[2017-12-19] MEDS ORDERED: D5 1/2NS 1000ml IV ONE (16:49)
[2017-12-19] MEDS: LORazepam 0.5mg tab ORAL PRN (16:58)
--- NOTE | 2017-12-19 17:30 | Progress Note ---
DATE: 12/19/2017 ACUTE PAIN MANAGEMENT PHYSICIAN PROGRESS NOTE MEDICATIONS: medication administration record reviewed. Medications include antibiotics, Cymbalta, heparin, Dilaudid, Ativan, morphine THREAD TOOL GRINDER SET UP OPERATOR, and Seroquel. LABORATORY STUDIES: From this morning, 12/19/2017 shows white count 13, hematocrit 30 and platelets 270. Chemistry is pending. OBJECTIVE: VITAL SIGNS: Within normal limits. Afebrile, pulse 80, respirations 19, blood pressure 113/58, and oxygen saturation 99% on supplemental oxygen. I saw the patient at bedside with the charge nurse, RN, Arcelia and discussed the case with surgeon Dr. Webb. The patient did sleep intermittently overnight. The night nurse stated the patient was doing fairly well using his morphine THREAD TOOL GRINDER SET UP OPERATOR. However, when I saw the patient this morning, he states that he has been miserable and has pain with any movement or range of motion. The patient is moving all extremities x4 and seemed alert and oriented x3. He was conversing and showed no signs for oversedation despite recent dose of subcutaneous Dilaudid 1.5 mg 30 minutes prior to my visit. The patient does have a history of considerable opioid requirements during his last hospitalization approximately 4 months ago. He remains NPO after his gastrointestinal revision surgery. I spoke with Dr. Webb, who had psychiatrist see the patient. This psychiatrist also saw the patient 4 months ago. The patient has been started on Cymbalta daily along with nightly Seroquel. I will have change the p.r.n. benzodiazepine from short-acting Xanax for more longer acting Ativan. I will increase the Dilaudid to 1.5 mg to 2 mg. I will continue the subcutaneous route for safety. I will increase the frequency of the THREAD TOOL GRINDER SET UP OPERATOR morphine unit from 12 minutes to 10 minutes to allow higher dosing. I also spoke with the hospital pharmacist, Soo to initiate long-acting MS Contin. We will start 50 mg q.12 h., and up titrate as needed to hopefully improve this patient's pain complaints. The patient does have expected hospital stay for approximately one week so we have ample time to adjust the narcotic doses as necessary. Jeremy Gillis M.D. DR: GENESIS JOB#: [id number] CC:
[2017-12-19 20:00] VITALS: BP 116/71
[2017-12-19] MEDS: Dyna-Hex 2% Top Sol 2oz TOPIC SCH (20:30)
[2017-12-19] MEDS ORDERED: Dextrose 10% 1,000 ML IV PRN (21:00)
[2017-12-19] MEDS: MS Contin 15mg tab ORAL SCH (21:25)
[2017-12-19] MEDS: FAT EMULSION 20% IV SCH (21:26)
[2017-12-19] MEDS: TPN IV SCH (21:26)
[2017-12-19] MEDS: Iron Sucrose 100 MG in NS 55 ML IV SCH (21:26)
--- NOTE | 2017-12-19 21:50 | General Progress Note ---
Assessment/Plan Status: stable, progressing Assessment/Plan MDD Anxiety d/o Cymbalta 30mg qam Seroquel 25mg qhs Subjective Date patient seen: Dec 19, 2017 Neurologic/Psychiatric: Reports: anxiety, depressed, emotional problems Allergies: Coded Allergies: ATROPINE (Verified Allergy, Unknown, 08/20/17) DIPHENOXYLATE (Verified Allergy, Unknown, 08/20/17) KETOROLAC (Verified Allergy, Unknown, 08/20/17) Objective Last 24 Hour Vital Signs Date Time Temp Pulse Resp B/P (MAP) Pulse Ox O2 Delivery O2 Flow Rate FiO2 12/19/17 16:00 99.2 73 18 119/58 (78) 100 99.2 12/19/17 16:00 18 12/19/17 13:55 18 12/19/17 12:00 18 12/19/17 12:00 98.0 73 18 91/53 (66) 100 98.0 12/19/17 09:04 208.0 78 20 98 12/19/17 09:00 Room Air 12/19/17 08:00 19 12/19/17 08:00 97.7 72 18 125/60 (81) 100 97.7 12/19/17 07:25 97.6 12/19/17 04:00 19 12/19/17 04:00 97.6 80 19 113/58 (76) 99 97.6 12/19/17 00:00 98.0 74 19 109/65 (80) 99 98.0 12/19/17 00:00 19 Intake and Output 12/18/17 12/19/17 19:00 07:00 Intake Total 2600 ml 1480 ml Output Total 355 ml 1615 ml Balance 2245 ml -135 ml IV Total 2600 ml 1480 ml Output Urine Total 155 ml 1200 ml Estimated Blood Loss 200 ml Other 415 ml Laboratory Tests 12/19/17 05:00: White Blood Count 12.9#H, Red Blood Count 3.23L, Hemoglobin 9.8L, Hematocrit 29.5L, Mean Corpuscular Volume 91, Mean Corpuscular Hemoglobin 30.3, Mean Corpuscular Hemoglobin Concent 33.1, Red Cell Distribution Width 12.9, Platelet Count 269, Mean Platelet Volume 6.6, Neutrophils (%) (Auto) , Lymphocytes (%) ( Auto) , Monocytes (%) (Auto) , Eosinophils (%) (Auto) , Basophils (%) (Auto) , Differential Total Cells Counted 100, Neutrophils % (Manual) 90H, Lymphocytes % (Manual) 8L, Monocytes % (Manual) 2, Eosinophils % (Manual) 0, Basophils % ( Manual) 0, Band Neutrophils 0, Platelet Estimate Adequate, Platelet Morphology Normal, Hypochromasia 1+ 12/19/17 07:10: Sodium Level 137, Potassium Level 4.2, Chloride Level 105, Carbon Dioxide Level 28, Anion Gap 4L, Blood Urea Nitrogen 5L, Creatinine 0.7, Estimat Glomerular Filtration Rate > 60, Glucose Level 145H, Calcium Level 8.5 Height (Feet): 5 Height (Inches): 11.00 Weight (Pounds): 154 General Appearance: no apparent distress, alert Neurologic: oriented x 3, responsive, depressed affect Nae Camara MD Dec 19, 2017 21:50
[2017-12-20] VITALS: BP 111/63
[2017-12-20] MEDS: NovoLOG Insulin Flexpen SUBQ SCH ×5 (00:16→23:54)
[2017-12-20] MEDS: PCA Morphine 1mg/ml 30 ML IV PRN ×4 (01:00→20:43)
[2017-12-20] MEDS: Ampicillin/Sulbactam Sod 3 GM in NS 110 ML IVPB SCH ×4 (01:30→20:01)
[2017-12-20 04:00] VITALS: BP 103/64
[2017-12-20] MEDS: LORazepam 0.5mg tab ORAL PRN (06:09)
[2017-12-20] MEDS: PCA shift volume MISC SCH ×2 (07:03→19:07)
[2017-12-20 07:34] LABS: BASOPHILS % (AUTO) 0.3 % (0.0-2.0); EOSINOPHILS % (AUTO) 0.3 % (0.0-3.0); HEMATOCRIT 33.9 % (42.0-52.0); HEMOGLOBIN 11.4 G/DL (14.2-18.0); LYMPHOCYTES % (AUTO) 10.2 % (20.0-45.0); MEAN CORPUSCULAR VOLUME 90 FL (80-99); MONOCYTES % (AUTO) 7.1 % (1.0-10.0); NEUTROPHILS % (AUTO) 82.1 % (45.0-75.0); PLATELET COUNT 324 K/UL (150-450); RED BLOOD COUNT 3.78 M/UL (4.70-6.10); WHITE BLOOD COUNT 13.8 K/UL (4.8-10.8)
[2017-12-20 07:44] LABS: ANION GAP 4 mmol/L (5-15); BLOOD UREA NITROGEN 8 mg/dL (7-18); CALCIUM 8.8 MG/DL (8.5-10.1); CARBON DIOXIDE 32 MMOL/L (21-32); CHLORIDE 105 MMOL/L (98-107); CREATININE 0.7 MG/DL (0.55-1.30); SODIUM 141 MMOL/L (136-145)
[2017-12-20 08:00] VITALS: BP 107/70
[2017-12-20] MEDS: DULoxetine 30mg cap ORAL SCH (08:21)
[2017-12-20] MEDS: MS Contin 15mg tab ORAL SCH ×3 (08:22→22:05)
--- NOTE | 2017-12-20 09:16 | General Progress Note ---
Progress Note Progress Note AVSS Refusing to ambulate, refusing to wear SCDs. When I confronted him with this he became tearful and said he has to make important phone calls when staff wants him to ambulate. Counseled. Chest - poor IS effort Abdomen mild soft distention, incision clean, stoma pink Urine 1500 Gastrostomy 390 BCIR ileo 40 WBC up 13,800 Hgb up 11.4 BMP - wnl Imp. Ileus Atelectasis Plan: NPO, TPN [id number] daily Strongly counseled regarding danger of his refusing treatments, ambulation, etc Rolando Webb MD Dec 20, 2017 09:16
[2017-12-20 12:00] VITALS: BP 125/74
--- NOTE | 2017-12-20 14:06 | General Progress Note ---
Assessment/Plan Status: stable Assessment/Plan MDD Anxiety d/o Cymbalta 30mg qam Seroquel 25mg qhs the pt is more cooperative and participating Subjective Neurologic/Psychiatric: Reports: anxiety, depressed, emotional problems Allergies: Coded Allergies: ATROPINE (Verified Allergy, Unknown, 08/20/17) DIPHENOXYLATE (Verified Allergy, Unknown, 08/20/17) KETOROLAC (Verified Allergy, Unknown, 08/20/17) Objective Last 24 Hour Vital Signs Date Time Temp Pulse Resp B/P (MAP) Pulse Ox O2 Delivery O2 Flow Rate FiO2 12/20/17 12:00 97.8 76 20 125/74 (91) 98 97.8 12/20/17 11:13 18 12/20/17 09:00 Room Air 12/20/17 08:00 18 12/20/17 08:00 97.7 73 18 107/70 (82) 99 97.7 12/20/17 04:00 18 12/20/17 04:00 97.4 74 18 103/64 (77) 99 97.4 12/20/17 00:00 18 12/20/17 00:00 97.7 78 18 111/63 (79) 96 97.7 12/19/17 20:00 98.2 80 18 116/71 (86) 95 98.2 12/19/17 20:00 Room Air 12/19/17 16:00 99.2 73 18 119/58 (78) 100 99.2 12/19/17 16:00 18 Intake and Output 12/19/17 12/20/17 19:00 07:00 Intake Total 1507.644 ml Output Total 1240 ml 690 ml Balance -1240 ml 817.644 ml IV Total 1507.644 ml Output Urine Total 1000 ml 500 ml Other 240 ml 190 ml Laboratory Tests 12/20/17 07:26: White Blood Count 13.8H, Red Blood Count 3.78L, Hemoglobin 11.4L, Hematocrit 33.9L, Mean Corpuscular Volume 90, Mean Corpuscular Hemoglobin 30.1, Mean Corpuscular Hemoglobin Concent 33.6, Red Cell Distribution Width 13.0, Platelet Count 324, Mean Platelet Volume 6.9, Neutrophils (%) (Auto) 82.1H, Lymphocytes ( %) (Auto) 10.2L, Monocytes (%) (Auto) 7.1, Eosinophils (%) (Auto) 0.3, Basophils (%) (Auto) 0.3, Sodium Level 141, Potassium Level 4.0, Chloride Level 105, Carbon Dioxide Level 32, Anion Gap 4L, Blood Urea Nitrogen 8, Creatinine 0.7, Estimat Glomerular Filtration Rate > 60, Glucose Level 115H, Calcium Level 8.8 Height (Feet): 5 Height (Inches): 11.00 Weight (Pounds): 154 General Appearance: no apparent distress, alert Neurologic: oriented x 3, responsive, depressed affect Nae Camara MD Dec 20, 2017 14:06
[2017-12-20 16:00] VITALS: BP 121/81
--- NOTE | 2017-12-20 17:00 | Progress Note ---
DATE: 12/20/2017 ACUTE PAIN MANAGEMENT PHYSICIAN PROGRESS NOTE MEDICATIONS: Medication administration record reviewed. Medications include IV fluids, vitamin K, iron, Seroquel, Cymbalta, morphine CREDIT AND COLLECTIONS REPRESENTATIVE, MS Contin 15 mg q.12 hours, TPN, Reglan, and antibiotics. P.r.n. medications include Tylenol, Zofran, Ativan, morphine CREDIT AND COLLECTIONS REPRESENTATIVE, and Dilaudid. LABORATORY STUDIES: From yesterday, December 19, 2017, shows white count 13, hematocrit 30, and platelets 269. OBJECTIVE: VITAL SIGNS: Within normal limits. Afebrile, pulse 74, respirations 18, blood pressure 103/64, and oxygen saturation 99% on room air. I saw the patient at the bedside. I discussed the case with the surgeon, Dr. Webb and the nurse RN, Marquez. The MS Contin, which I started yesterday seemed to be effective and well tolerated. He has received two doses with a 15 mg extended release morphine MS Contin with good analgesic effect and no adverse side effects. The patient agrees that he notices improvement in his pain with the MS Contin. I would continue the current dosing every 12 hours since he continues on his morphine CREDIT AND COLLECTIONS REPRESENTATIVE, which he continues to use generously. The patient did ask if I could switch over the Dilaudid from subcutaneous route to the intravenous route. I explained I would need to reduce the dosing and the patient stated that would be okay. So, I had halved the dose of the p.r.n. Dilaudid from 2 mg subcutaneously to 1 mg intravenously. I also decreased the frequency to every four hours to help wean him off of parenteral narcotics. The patient will continue with his medications per Dr. Webb and seems the current analgesic regimen is effective. The patient will remain in hospital for several more days and Dr. Webb will continue to monitor the patient closely. He will ambulate as necessary, incentive spirometer is at the bedside for good pulmonary toilet. DVT prophylaxis as per Srgy. Jeremy Gillis M.D. DR: SARA JOB#: [id number] CC: MARIZA
[2017-12-20 20:00] VITALS: BP 121/81
[2017-12-20] MEDS: Dyna-Hex 2% Top Sol 2oz TOPIC SCH (20:06)
[2017-12-20] MEDS: Iron Sucrose 100 MG in NS 55 ML IV SCH (21:02)
[2017-12-20] MEDS: FAT EMULSION 20% IV SCH (21:04)
[2017-12-20] MEDS: TPN IV SCH (21:04)
[2017-12-20] MEDS: D5 1/2NS w/KCl 40meq 1000ml 1,000 ML IV SCH (21:05)
[2017-12-21] VITALS: BP 134/74
[2017-12-21] MEDS: PCA Morphine 1mg/ml 30 ML IV PRN ×3 (01:00→20:41)
[2017-12-21] MEDS: Ampicillin/Sulbactam Sod 3 GM in NS 110 ML IVPB SCH ×4 (01:23→20:18)
[2017-12-21 04:00] VITALS: BP 124/74
[2017-12-21] MEDS: MS Contin 15mg tab ORAL SCH ×3 (06:01→22:01)
[2017-12-21] MEDS: NovoLOG Insulin Flexpen SUBQ SCH ×4 (06:05→23:43)
[2017-12-21 06:32] LABS: BASOPHILS % (AUTO) 0.6 % (0.0-2.0); EOSINOPHILS % (AUTO) 2.3 % (0.0-3.0); HEMATOCRIT 29.5 % (42.0-52.0); LYMPHOCYTES % (AUTO) 22.9 % (20.0-45.0); MEAN CORPUSCULAR VOLUME 91 FL (80-99); MONOCYTES % (AUTO) 10.7 % (1.0-10.0); NEUTROPHILS % (AUTO) 63.6 % (45.0-75.0); PLATELET COUNT 300 K/UL (150-450); RED BLOOD COUNT 3.24 M/UL (4.70-6.10); RED CELL DISTRIBUTION WIDTH 13.1 % (11.6-14.8); WHITE BLOOD COUNT 8.9 K/UL (4.8-10.8)
[2017-12-21] MEDS: LORazepam 0.5mg tab ORAL PRN (06:49)
[2017-12-21 06:53] LABS: ANION GAP 5 mmol/L (5-15); BLOOD UREA NITROGEN 7 mg/dL (7-18); CALCIUM 8.8 MG/DL (8.5-10.1); CARBON DIOXIDE 29 MMOL/L (21-32); CHLORIDE 107 MMOL/L (98-107); CREATININE 0.7 MG/DL (0.55-1.30); PHOSPHORUS 3.3 MG/DL (2.5-4.9); SODIUM 141 MMOL/L (136-145)
[2017-12-21] MEDS: PCA shift volume MISC SCH ×2 (07:06→18:57)
[2017-12-21 08:00] VITALS: BP 108/67
[2017-12-21] MEDS ORDERED: PCA Morphine 1mg/ml 30 ML IV PRN ×2 (08:30)
[2017-12-21] MEDS ORDERED: Rate Change PCA 1 Each MISC PRN ×2 (08:30)
[2017-12-21] MEDS: DULoxetine 30mg cap ORAL SCH (08:45)
--- NOTE | 2017-12-21 09:23 | General Progress Note ---
Progress Note Progress Note AVSS Now ambulating well and more cooperative. Abdomen mildly distended, soft, incision clean, stoma pink Urine 1600 Gastrostomy 370 bilious BCIR ileo 90 enteric WBC 8900 Hgb 10 BMP,Mg,P - wnl Imp. Ileus Plan: Continue npo and TPN d/c urinary echols in AM Rolando Webb MD Dec 21, 2017 09:23
[2017-12-21 12:00] VITALS: BP 113/75
--- NOTE | 2017-12-21 12:45 | Progress Note ---
DATE: 12/21/2017 ACUTE PAIN MANAGEMENT PHYSICIAN PROGRESS NOTE LABORATORY STUDIES: From this morning, December 21, 2017, shows white count 9, hematocrit 30, platelets 300,000. Sodium 141, potassium 4.0, chloride 107, bicarbonate 29, BUN 7, creatinine 0.7, calcium 8.8, phosphorus 3.3, magnesium 1.8. VITAL SIGNS: Within normal limits. Afebrile, pulse 78, respirations 18, blood pressure 124/74, oxygen saturation 100%. MEDICATIONS: Medication administration record reviewed. Medications include TPN, Seroquel, Cymbalta, POWERHOUSE ENGINEER morphine, Flagyl, antibiotics, MS Contin 15 mg q.8 hours. P.r.n. medications include Tylenol, Zofran, Ativan, IV Dilaudid. I saw the patient at the bedside after discussion with the nurse RN, Kirstin and the surgeon, Dr. Webb. the hospital pharmacist. The patient has become unfortunately beginning to appear to present drug, narcotic-seeking behavior. The patient has become somewhat manipulative, trying to ask multiple different physicians for extra doses of pain medications. He uses variant excuses such as increased ambulation and activity. I decided to increase the MS Contin dosing from 15 mg extended release every 12 hours to every 8 hours. Yesterday, the patient insisted to change the breakthrough Dilaudid from subcutaneous route to the intravenous route. Dr. Webb and I discussed the case in detail. Dr. Webb has requested me to try to dial-down the opioid doses, as Dr. Webb does not believe that the pain level should be increasing at this point; in fact, it should be decreasing. The patient's morphine POWERHOUSE ENGINEER will be reviewed, but we will decrease the POWERHOUSE ENGINEER demand button dosing from 1.5 mg to 1 mg. I have changed the 4-hour limit from 35 mg to 25 mg. I will continue the breakthrough IV Dilaudid injections, but q.4-hour frequency will remain. I have encouraged the nursing team to dose the p.r.n. Ativan more frequently as the psychiatrist has documented anxiety, depression, and emotional problems as exacerbating his pain condition. The fact that the patient was seeing outpatient pain management physician even in the past month, over 4 months after his previous surgery, still requiring Suboxone, long-acting narcotics, suggested this patient may have narcotic-dependent tendencies. I asked the hospital pharmacist if Suboxone is available at this medical center. Suboxone is not available in this hospital formulary, so I will defer transition of the patient over to Suboxone to his outpatient physician near his home closer to [facility]. We will continue the POWERHOUSE ENGINEER morphine for several more days. Jeremy Gillis M.D. DR: Poly JOB#: [id number] CC:
[2017-12-21 16:00] VITALS: BP 121/77
[2017-12-21] MEDS ORDERED: NS Irrig 1000ml ONE (18:40)
[2017-12-21] MEDS ORDERED: Tubing IV Secondary IV ONE (18:40)
[2017-12-21] MEDS ORDERED: PCA shift volume MISC SCH ×2 (19:00)
[2017-12-21 20:00] VITALS: BP 122/71
[2017-12-21] MEDS: Dyna-Hex 2% Top Sol 2oz TOPIC SCH (20:18)
[2017-12-21] MEDS: TPN IV SCH (20:42)
[2017-12-21] MEDS: FAT EMULSION 20% IV SCH (20:42)
[2017-12-21] MEDS: D5 1/2NS w/KCl 40meq 1000ml 1,000 ML IV SCH (20:45)
[2017-12-21] MEDS: Iron Sucrose 100 MG in NS 55 ML IV SCH (20:54)
[2017-12-22] VITALS: BP 123/76
[2017-12-22] MEDS: Ampicillin/Sulbactam Sod 3 GM in NS 110 ML IVPB SCH ×2 (01:56→08:16)
[2017-12-22 04:39] LABS: BASOPHILS % (AUTO) 1.2 % (0.0-2.0); EOSINOPHILS % (AUTO) 6.4 % (0.0-3.0); HEMATOCRIT 30.4 % (42.0-52.0); HEMOGLOBIN 10.2 G/DL (14.2-18.0); LYMPHOCYTES % (AUTO) 22.9 % (20.0-45.0); MEAN CORPUSCULAR VOLUME 90 FL (80-99); MONOCYTES % (AUTO) 8.4 % (1.0-10.0); NEUTROPHILS % (AUTO) 61.1 % (45.0-75.0); PLATELET COUNT 316 K/UL (150-450); RED BLOOD COUNT 3.37 M/UL (4.70-6.10); RED CELL DISTRIBUTION WIDTH 13.2 % (11.6-14.8); WHITE BLOOD COUNT 8.1 K/UL (4.8-10.8)
[2017-12-22 05:01] LABS: ANION GAP 5 mmol/L (5-15); BLOOD UREA NITROGEN 5 mg/dL (7-18); CALCIUM 8.7 MG/DL (8.5-10.1); CARBON DIOXIDE 28 MMOL/L (21-32); CHLORIDE 105 MMOL/L (98-107); CREATININE 0.6 MG/DL (0.55-1.30); POTASSIUM 3.9 MMOL/L (3.5-5.1); SODIUM 138 MMOL/L (136-145)
[2017-12-22] MEDS: MS Contin 15mg tab ORAL SCH ×3 (06:11→21:59)
[2017-12-22] MEDS: NovoLOG Insulin Flexpen SUBQ SCH ×4 (06:17→23:54)
[2017-12-22] MEDS: PCA shift volume MISC SCH ×2 (07:29→19:01)
[2017-12-22 08:00] VITALS: BP 104/61
[2017-12-22] MEDS: DULoxetine 30mg cap ORAL SCH (08:16)
[2017-12-22] MEDS: PCA Morphine 1mg/ml 30 ML IV PRN ×2 (09:30→19:22)
--- NOTE | 2017-12-22 09:32 | General Progress Note ---
Progress Note Progress Note AVSS Ambulating well. Pain controlled with MS contin + CAREER AND TECHNOLOGY EDUCATION TEACHER which will be d/c'd tomorrow if stable. Ativan prn anxiety Abdomen still distended, soft, healing nicely Urine 3200 Gastrostomy 190 BCIR ileo 15 CBC and BMP satisfactory/stable Imp. Ileus Plan: continue NPO and TPN D/C urinary echols d/c antibiotics Rolando Webb MD Dec 22, 2017 09:32
[2017-12-22 11:57] VITALS: BP 101/57
[2017-12-22] MEDS ORDERED: Tubing IV Secondary IV ONE (15:18)
[2017-12-22] MEDS ORDERED: NS Irrig 1000ml ONE (15:18)
[2017-12-22 16:00] VITALS: BP 118/62
--- NOTE | 2017-12-22 17:45 | Progress Note ---
DATE: 12/22/2017 ACUTE PAIN MANAGEMENT PHYSICIAN PROGRESS NOTE MEDICATIONS: Medication administration record reviewed. Medications include Seroquel, vitamin K, Zofran, MS Contin, PILLING MACHINE OPERATOR morphine, Reglan, Ativan, Dilaudid, Cymbalta, Tylenol. VITAL SIGNS: Afebrile, pulse 79, respirations 18, blood pressure 104/61, oxygen saturation 98% on room air. LABORATORY STUDIES: From this morning, December 22, 2017, shows white count 8, hematocrit 30, platelets 316,000. Sodium 138, potassium 3.9, chloride 105, bicarbonate 28, BUN 5, creatinine 0.6, glucose 124. I saw the patient at the bedside. After discussion with the nurse, ARTUR Grider, and the surgeon, Dr. Webb. The patient has been out of bed more frequently. We encouraged continued aggressive ambulation. The patient seems to be in good spirits and does not appear to be overly anxious. He has not received a dose of Ativan in over 24 hours and I did encourage the nurse to please dose a p.r.n. dose of Ativan later today to continue adequate anxiolysis. Psychiatry did start the patient on Cymbalta which the patient has been tolerating. I had a lengthy discussion with the patient regarding his MS Contin. The patient has tolerated the 15 mg MS Contin dose over multiple doses over the past 48 hours. There have been no adverse side effects and the patient seemed to tolerate the medication well. I have left a prescription for #40 tablets of MS Contin for outpatient usage. I also instructed the patient to locate a physician near his home in [place] to continue and/or adjust a long-acting narcotic with strong consideration to return back to Suboxone, to lessen the risk for opioid abuse. The patient agrees with the plan and does have access to a physician clinic near his home, where he was receiving Suboxone up to 1 month ago. The patient spoke. He is continuing with his Dilaudid injection shots. I will continue these breakthrough shots for now as I have instructed the patient that we will discontinue the PILLING MACHINE OPERATOR in the next 24 hours. I spoke with the hospital pharmacist, Kaushik, with exact instructions to continue the PILLING MACHINE OPERATOR for another 2 refills of the syringe and then discontinue. I do not believe the patient will not need any short-acting opioid analgesics by the time he leaves the hospital. With his potential for opioid addiction, I have suggested long-acting MS Contin that is the only analgesic available for now. I will continue using the p.r.n. Ativan here in the hospital. deferred to Psychiatry for continued benzodiazepine usage if necessary. Jeremy Gillis M.D. DR: Poly JOB#: [id number] CC:
[2017-12-22 20:00] VITALS: BP 129/74
[2017-12-22] MEDS: Dyna-Hex 2% Top Sol 2oz TOPIC SCH (20:39)
[2017-12-22] MEDS: Iron Sucrose 100 MG in NS 55 ML IV SCH (20:41)
[2017-12-22] MEDS: TPN IV SCH (20:52)
[2017-12-22] MEDS: FAT EMULSION 20% IV SCH (20:52)
[2017-12-22] MEDS: D5 1/2NS w/KCl 40meq 1000ml 1,000 ML IV SCH (21:00)
[2017-12-23] VITALS: BP 108/69
[2017-12-23] MEDS: LORazepam 0.5mg tab ORAL PRN ×2 (03:00→19:09)
[2017-12-23 04:00] VITALS: BP 119/70
[2017-12-23] MEDS: MS Contin 15mg tab ORAL SCH ×3 (06:01→21:34)
[2017-12-23] MEDS: NovoLOG Insulin Flexpen SUBQ SCH ×3 (06:14→18:00)
[2017-12-23] MEDS: PCA shift volume MISC SCH (07:04)
[2017-12-23 08:00] VITALS: BP 119/70
[2017-12-23] MEDS: DULoxetine 30mg cap ORAL SCH (08:35)
--- NOTE | 2017-12-23 08:50 | General Progress Note ---
Progress Note Progress Note AVSS comfortable with MS Contin per Dr. Gillis to d/c MILL HAND PLATE MILL this AM Abdomen remains distended, incision clean, stoma pink Urine 3470 Gastrostomy 490 BCIR ileo 30 Imp. Persistent ileus Plan: npo, continue TPN, continue Venofer d/c IV fluids other than TPN labs in AM Rolando Webb MD Dec 23, 2017 08:50
[2017-12-23 12:00] VITALS: BP 127/85
[2017-12-23 16:00] VITALS: BP 125/85
[2017-12-23] MEDS ORDERED: D5 1/2NS w/KCl 20mEq 1,000 ML IV SCH (19:45)
[2017-12-23 20:25] VITALS: BP 129/77
[2017-12-23] MEDS: Dyna-Hex 2% Top Sol 2oz TOPIC SCH (20:33)
[2017-12-23] MEDS: TPN IV SCH (20:35)
[2017-12-23] MEDS: FAT EMULSION 20% IV SCH (20:35)
[2017-12-23] MEDS: Iron Sucrose 100 MG in NS 55 ML IV SCH (20:49)
[2017-12-23] MEDS ORDERED: Hyoscyamine 0.125mg tab ORAL ONE (21:45)
[2017-12-24] MEDS: NovoLOG Insulin Flexpen SUBQ SCH ×4 (00:23→18:00)
[2017-12-24 00:53] VITALS: BP 145/61
[2017-12-24] MEDS: LORazepam 0.5mg tab ORAL PRN (01:45)
[2017-12-24] MEDS ORDERED: Hyoscyamine 0.125mg tab ORAL PRN (02:00)
[2017-12-24] MEDS ORDERED: Hyoscyamine 0.125mg tab ORAL SCH (02:00)
[2017-12-24 04:48] VITALS: BP 135/78
[2017-12-24 06:04] LABS: BASOPHILS % (AUTO) 0.6 % (0.0-2.0); HEMATOCRIT 32.7 % (42.0-52.0); HEMOGLOBIN 10.8 G/DL (14.2-18.0); LYMPHOCYTES % (AUTO) 18.9 % (20.0-45.0); MEAN CORPUSCULAR VOLUME 91 FL (80-99); MONOCYTES % (AUTO) 9.3 % (1.0-10.0); NEUTROPHILS % (AUTO) 64.2 % (45.0-75.0); PLATELET COUNT 340 K/UL (150-450); RED BLOOD COUNT 3.61 M/UL (4.70-6.10); WHITE BLOOD COUNT 8.8 K/UL (4.8-10.8)
[2017-12-24] MEDS: MS Contin 15mg tab ORAL SCH ×3 (06:09→22:11)
[2017-12-24 06:20] LABS: ALANINE AMINOTRANSFERASE 49 U/L (12-78); ALBUMIN 2.4 G/DL (3.4-5.0); ALBUMIN/GLOBULIN RATIO 0.7 (1.0-2.7); ALKALINE PHOSPHATASE 187 U/L (46-116); ANION GAP 1 mmol/L (5-15); ASPARTATE AMINO TRANSFERASE 36 U/L (15-37); BILIRUBIN,TOTAL 0.3 MG/DL (0.2-1.0); BLOOD UREA NITROGEN 8 mg/dL (7-18); CALCIUM 9.1 MG/DL (8.5-10.1); CARBON DIOXIDE 35 MMOL/L (21-32); CHLORIDE 106 MMOL/L (98-107); CREATININE 0.7 MG/DL (0.55-1.30); POTASSIUM 3.7 MMOL/L (3.5-5.1); SODIUM 142 MMOL/L (136-145)
[2017-12-24 08:00] VITALS: BP 118/75
--- NOTE | 2017-12-24 08:32 | General Progress Note ---
Progress Note Progress Note AVSS Had severe cramping yesterday afternoon/evening with large volume gastrostomy output and scant ileostomy output - resolved overnight Abdomen still mildly distended, soft, incision clean Urine 5050 Gastrostomy 1220+220 BCIR ileo 25+320 CBC,CMP all satisfactory except albumin2.4 Imp. Resolving ileus Malnutrition Plan: continue NPO until distention resolved continue TPN Rolando Webb MD Dec 24, 2017 08:32
[2017-12-24] MEDS: DULoxetine 30mg cap ORAL SCH (08:49)
[2017-12-24 12:00] VITALS: BP 120/77
[2017-12-24] MEDS ORDERED: Tubing IV Secondary IV ONE (15:14)
[2017-12-24] MEDS ORDERED: NS Irrig 1000ml ONE (15:14)
[2017-12-24 16:00] VITALS: BP 127/77
[2017-12-24] MEDS: Dyna-Hex 2% Top Sol 2oz TOPIC SCH (20:00)
[2017-12-24] MEDS: Iron Sucrose 100 MG in NS 55 ML IV SCH (20:55)
[2017-12-24] MEDS: FAT EMULSION 20% IV SCH (20:56)
[2017-12-24] MEDS: TPN IV SCH (20:56)
[2017-12-25] VITALS (7 sets, daily range): BP systolic 105–135; BP diastolic 67–85
[2017-12-25] MEDS: NovoLOG Insulin Flexpen SUBQ SCH ×4 (00:56→17:58)
[2017-12-25] MEDS: MS Contin 15mg tab ORAL SCH ×4 (06:00→21:31)
--- NOTE | 2017-12-25 08:45 | General Progress Note ---
Progress Note Progress Note AVSS Hiccups and emesisx1 overnight. Abdomen still distended Urine 2950 Gastrostomy 940 BCIR ileo 190 Imp. Persistent ileus vs. partial SBO Plan: STAT CT scan abd+pelvis with oral and IV contrast continue TPN, I&O labs in AM Rolando Webb MD Dec 25, 2017 08:44
[2017-12-25] MEDS: DULoxetine 30mg cap ORAL SCH (08:52)
[2017-12-25] MEDS ORDERED: HYDROmorphone 1mg/ml Carpuject IVP SCH (10:15)
--- NOTE | 2017-12-25 12:13 | Diagnostic Imaging Report ---
Clinical Indication: Abdominal distention, history of continent ileostomy Technique: Patient ingested oral contrast IV administration nonionic contrast. Venous obtained through the abdomen and pelvis. Multiplanar reconstructions were generated. Total dose length product 672.9 mGycm. CTDIvol(s) 12.33 mGy. Dose reduction achieved using automated exposure control Comparison: 08/29/2017 Findings: Right lower quadrant continent ileostomy an evidence of prior colectomy are again demonstrated, with a De Leon catheter present within the reservoir. Despite the presence of the De Leon catheter, the reservoir is considerably distended. The distal small bowel leading into the reservoir is also distended and fluid-filled, with out any evidence of intervening nondilated small bowel. There is evidence of recent surgery, with midline surgical arelis and soft tissue thickening along the incision. A small fluid collection is seen deep to the anterior abdominal wall musculature just deep to the umbilicus measuring 2 x 3 cm. Small fluid collection versus unopacified small bowel is also seen in the right lower quadrant. Similar collection also visible in this area on the prior study. A fluid collection is seen in the pelvis posterior to the reservoir measuring 5 x 3.3 cm. A few tiny intraperitoneal gas bubbles are seen over the dome of the liver. There is again demonstrated a gastrostomy tube. The bladder is markedly distended. There is bilateral mild hydronephrosis. No renal parenchymal abnormality demonstrated. The liver, gallbladder, bile ducts, pancreas, spleen, adrenals are all unremarkable. No retroperitoneal or mesenteric mass or adenopathy. No pelvic mass or adenopathy. The lung bases demonstrate posterior dependent atelectatic changes. The bones are unremarkable. Impression: Evidence of recent surgical revision of continent ileostomy with postsurgical changes as described Fluid collections in the anterior abdomen and pelvis, most likely routine postoperative fluid collections; abscess formation in any of these not completely excludable but no specific imaging features to suggest such are demonstrated Markedly dilated continent ileostomy reservoir. Dilated distal small bowel leading into the reservoir, without evidence of intervening obstructive process, may be related to the reservoir distention or could represent postoperative ileus or combination of both Markedly distended bladder. Mild bilateral hydronephrosis is probably related to such Gastrostomy again demonstrated Posterior dependent atelectatic changes are again demonstrated The CT scanner at [facility] is accredited by the [employer] and the scans are performed using protocols designed to limit radiation exposure to as low as reasonably achievable to attain images of sufficient resolution adequate for diagnostic evaluation.
[2017-12-25] MEDS ORDERED: LORazepam 0.5mg tab ORAL SCH (17:32)
[2017-12-25] MEDS: Iron Sucrose 100 MG in NS 55 ML IV SCH (20:23)
[2017-12-25] MEDS: Dyna-Hex 2% Top Sol 2oz TOPIC SCH (20:24)
[2017-12-25] MEDS: TPN IV SCH (20:36)
[2017-12-25] MEDS: FAT EMULSION 20% IV SCH (20:36)
[2017-12-25] MEDS ORDERED: NS 275ml ONE (21:41)
[2017-12-25] MEDS ORDERED: NS Irrig 1000ml ONE (21:41)
--- NOTE | 2017-12-26 02:45 | Progress Note ---
DATE: 12/25/2017 ACUTE PAIN MANAGEMENT PHYSICIAN PROGRESS NOTE MEDICATIONS: Medication administration record reviewed. Medications include TPN, Tylenol, Cymbalta, Dilaudid, Levsin, Ativan, MS Contin, Zofran, and vitamin K. LABORATORY STUDIES: From yesterday 12/24/2017 shows white count 9, hematocrit 33, and platelets 340. Sodium 142, potassium 3.7, chloride 106, bicarbonate 35, BUN 8, and creatinine 0.7. Total bilirubin 0.3. AST 36, ALT 49, and alkaline phosphatase 187. Total protein 5.9 and albumin 2.9. DIAGNOSTIC IMAGING: Abdominal, pelvic CT from 5 hours ago, ordered by Dr. Webb, shows distended bladder. Evidence of recent surgical revision of continent ileostomy with postsurgical changes. Routine postoperative fluid collections. No evidence of intervening obstructive process. OBJECTIVE: VITAL SIGNS: Afebrile, pulse 89, respirations 20, blood pressure 131/80, and oxygen saturation 98%. I saw the patient at bedside with the nurse RN, Kirstin ____. I spoke in detail with Dr. Webb over the past couple of days. Since the NURSE FIRST AID was discontinued Saturday, the patient has been having increased anxiety. He has been requesting Dilaudid breakthrough shots nearly routinely every 4 hours. The patient has asked for extra doses frequently, which Dr. Webb and I have agreed to void providing. Dr. Webb has asked the psychiatrist to once again visit with the patient. The patient does seem to have increased anxiety. He does sleep soundly at times. I have renewed his MS Contin 15 mg every 8 hours and left a prescription for outpatient usage. ____ maintain the breakthrough Dilaudid 1 mg intravenous at the current dosing and frequency. I have encouraged the patient to use the oral Ativan. I will continue 0.5 mg on a p.r.n. basis. I asked the patient if he would accept the Ativan dose now, and the patient did agree, so I have asked the pharmacist, Kaushik to dispense 1 mg oral Ativan now to help with the patient's complaints, although he does state he is having trouble sleeping, he has ____ sleeping soundly often. Dr. Webb is following the patient closely for his gastrointestinal surgery. Jeremy Gillis M.D. DR: HANNAH JOB#: [id number] CC:
[2017-12-26 03:10] VITALS: BP 127/72
[2017-12-26] MEDS: MS Contin 15mg tab ORAL SCH ×3 (05:49→21:39)
[2017-12-26] MEDS: NovoLOG Insulin Flexpen SUBQ SCH ×4 (06:00→17:14)
[2017-12-26 07:25] LABS: BASOPHILS % (AUTO) 0.8 % (0.0-2.0); EOSINOPHILS % (AUTO) 5.4 % (0.0-3.0); HEMOGLOBIN 11.6 G/DL (14.2-18.0); LYMPHOCYTES % (AUTO) 14.3 % (20.0-45.0); MEAN CORPUSCULAR VOLUME 91 FL (80-99); MONOCYTES % (AUTO) 9.8 % (1.0-10.0); NEUTROPHILS % (AUTO) 69.6 % (45.0-75.0); PLATELET COUNT 332 K/UL (150-450); RED BLOOD COUNT 3.73 M/UL (4.70-6.10); WHITE BLOOD COUNT 9.1 K/UL (4.8-10.8)
[2017-12-26 07:47] LABS: ALANINE AMINOTRANSFERASE 47 U/L (12-78); ALBUMIN 2.8 G/DL (3.4-5.0); ALBUMIN/GLOBULIN RATIO 0.7 (1.0-2.7); ALKALINE PHOSPHATASE 221 U/L (46-116); ANION GAP 4 mmol/L (5-15); ASPARTATE AMINO TRANSFERASE 36 U/L (15-37); BILIRUBIN,TOTAL 0.4 MG/DL (0.2-1.0); BLOOD UREA NITROGEN 13 mg/dL (7-18); CALCIUM 9.3 MG/DL (8.5-10.1); CARBON DIOXIDE 35 MMOL/L (21-32); CHLORIDE 100 MMOL/L (98-107); CREATININE 0.8 MG/DL (0.55-1.30); PHOSPHORUS 3.9 MG/DL (2.5-4.9); POTASSIUM 3.8 MMOL/L (3.5-5.1); SODIUM 139 MMOL/L (136-145)
[2017-12-26 08:00] VITALS: BP 108/66
--- NOTE | 2017-12-26 09:11 | General Progress Note ---
Progress Note Progress Note AVSS. Continues to be non-compliant and exceedingly difficult for nurses to take care of him. He admits to feeling better today Was having hiccups - resolved CT scan revealed distended pouch - BCIR catheter manipulated/irrigated with large volume of effluent since. Abdomen - distention resolving, incision clean, stoma healing well Urine 1600 Gastrostomy 1090 BCIR ileo 1550 WBC 9100 Hgb 11.6 CMP okay except alk phos 221 and albumin 2.8 (up from 2.4) Imp. Resolved ileus/partial SBO Plan; clear liquid diet gastrostomy 3:3 protocol continue TPN counseled again re not refusing to have PICC line dressing changed, etc , etc Rolando Webb MD Dec 26, 2017 09:11
[2017-12-26] MEDS: DULoxetine 30mg cap ORAL SCH (09:56)
[2017-12-26] MEDS: LORazepam 0.5mg tab ORAL PRN ×2 (09:56→17:14)
[2017-12-26 12:00] VITALS: BP 115/70
[2017-12-26 16:00] VITALS: BP 117/76
[2017-12-26] MEDS ORDERED: Cyclobenzaprine 10mg Tab ORAL PRN (18:00)
[2017-12-26] MEDS ORDERED: Cyclobenzaprine 10mg Tab ORAL SCH (18:05)
[2017-12-26] MEDS ORDERED: HYDROmorphone 1mg/ml Carpuject SUBQ SCH (18:07)
[2017-12-26 20:00] VITALS: BP_SYST 121; BP_SYST 183; BP_DIAS 74; BP_DIAS 93
[2017-12-26 21:00] VITALS: BP 146/82
[2017-12-26] MEDS ORDERED: Phytonadione 10 mg/mL 1ml amp SUBQ SCH (21:00)
[2017-12-26] MEDS: Dyna-Hex 2% Top Sol 2oz TOPIC SCH (21:37)
[2017-12-26] MEDS: Iron Sucrose 100 MG in NS 55 ML IV SCH (21:37)
[2017-12-26] MEDS: FAT EMULSION 20% IV SCH (21:42)
[2017-12-26] MEDS: TPN IV SCH (21:42)
[2017-12-27] VITALS (7 sets, daily range): BP systolic 106–121; BP diastolic 64–76
[2017-12-27] MEDS: NovoLOG Insulin Flexpen SUBQ SCH ×2 (00:10→06:06)
[2017-12-27 04:34] LABS: BASOPHILS % (AUTO) 0.7 % (0.0-2.0); EOSINOPHILS % (AUTO) 2.4 % (0.0-3.0); HEMOGLOBIN 11.4 G/DL (14.2-18.0); MEAN CORPUSCULAR VOLUME 90 FL (80-99); NEUTROPHILS % (AUTO) 79.9 % (45.0-75.0); PLATELET COUNT 315 K/UL (150-450); RED BLOOD COUNT 3.76 M/UL (4.70-6.10); RED CELL DISTRIBUTION WIDTH 13.6 % (11.6-14.8); WHITE BLOOD COUNT 15.2 K/UL (4.8-10.8)
[2017-12-27 04:35] LABS: APPEARANCE,URINE CLEAR; BILIRUBIN, URINE NEGATIVE (NEGATIVE); GLUCOSE, URINE (UA) NEGATIVE (NEGATIVE); KETONES,URINE NEGATIVE (NEGATIVE); LEUKOCYTE ESTERASE ,URINE 1+ (NEGATIVE); NITRITE,URINE NEGATIVE (NEGATIVE); PH,URINE 8 (4.5-8.0); PROTEIN,URINE NEGATIVE (NEGATIVE); UROBILINOGEN,URINE NORMAL MG/DL (0.0-1.0)
[2017-12-27 04:42] LABS: COLOR,URINE YELLOW
[2017-12-27 05:01] LABS: ANION GAP 7 mmol/L (5-15); BLOOD UREA NITROGEN 14 mg/dL (7-18); CALCIUM 8.7 MG/DL (8.5-10.1); CARBON DIOXIDE 30 MMOL/L (21-32); CHLORIDE 101 MMOL/L (98-107); CREATININE 0.8 MG/DL (0.55-1.30); POTASSIUM 4.1 MMOL/L (3.5-5.1); SODIUM 137 MMOL/L (136-145)
[2017-12-27] MEDS: MS Contin 15mg tab ORAL SCH ×3 (06:07→21:37)
[2017-12-27] MEDS ORDERED: Dextrose 10% 1,000 ML IV SCH (07:15)
--- NOTE | 2017-12-27 08:20 | General Progress Note ---
Progress Note Progress Note T100.8. Has been tampering with the IV pumps/TPN infusion Tolerated small amount of po clear liquids and gastrostomy 3:3 protocol Abdomen soft, flat, healing nicely Urine 1225 Gastrostomy 140 BCIR ileo 1040 WBC up 15,200 BMP-wnl U/A - ok Imp. Ileus/partial SBO resolved Fever - likely due to PIC line Continuing non-compliance by patient Plan; Blood and urine cultures sent remove PIC line d/c TPN, Venofer (received 900mg total), IV meds - he has no peripheral IV access plug gastrostomy continuously BCIR low residue diet Maintain continuous drainage of Stoll continent ileostomy Rolando Webb MD Dec 27, 2017 08:20
[2017-12-27] MEDS: DULoxetine 30mg cap ORAL SCH ×2 (09:23→17:37)
[2017-12-27] MEDS: LORazepam 0.5mg tab ORAL PRN (11:33)
--- NOTE | 2017-12-27 12:00 | Progress Note ---
DATE: 12/27/2017 ACUTE PAIN MANAGEMENT PHYSICIAN PROGRESS NOTE MEDICATIONS: Medication administration record reviewed. Medications include Tylenol, Flexeril, Cymbalta, Dilaudid, Levsin, Ativan, MS Contin, Zofran, vitamin K, and Seroquel. LABORATORY STUDIES: From this morning, December 27, 2017 shows white count 15 increased from 9 yesterday, hematocrit 34, and platelets . Sodium 137, potassium 4.1, chloride 101, bicarb 30, BUN 14, creatinine 0.8, glucose 98, calcium 8.7. Urinalysis with 1+ leukocyte esterase, nitrite negative, few bacteria. OBJECTIVE: VITAL SIGNS: T-max 100.8, current temperature 99.1, pulse 105, respirations 18, blood pressure 106/64, and oxygen saturation 99%. I saw the patient at the bedside with the surgeon, Dr. Webb and the nurse, Cheo. The patient spiked the fever overnight and Dr. Webb convinced that the indwelling PICC line must be discontinued immediately as a high likelihood contributor to his fevers. The patient had no abnormal white count for many days until this morning. Alternate IV access was unable to be located by multiple nursing staff members. Dr. Webb, had a detailed discussion with the patient. The patient is able to tolerate oral intake and Dr. Webb, believes it would be appropriate at this time to discontinue all IV access. The patient had been receiving breakthrough Dilaudid injections 1 mg nearly around-the- clock every four hours for breakthrough pain. Since there will be no further IV access, Dr. Webb discussed with the patient and myself. Dr. Webb, did not wish to give breakthrough medications at this time for pain via any parenteral route. Additionally, Dr. Webb and I reviewed the patient's medication list. The patient has been on scheduled MS Contin 15 every eight hours [id number] on a scheduled dose. These doses have been given on schedule and no doses have been missed. Continued p.o. Ativan will be permitted. However Dr. Webb, did not want any breakthrough opioid analgesics given, even via the oral route. The patient has been having compliance issues, cooperation with the staff issues, and has a history of manipulative opioid-seeking behavior during this hospital stay along with his previous August [address] Webb, reviewed the abdominal CT results and Dr. Webb, did not see any source of increased pain in the abdomen without any bowel obstruction or other gastrointestinal issues. I concur with Dr. Webb, that the patient will only remain on q.8 hours scheduled dosing of MS Contin at this point. I have left a small prescription for MS Contin for outpatient usage to continue this medication. I have doubled his Cymbalta from 30 mg once a day to b.i.d. Certainly, I will defer any changes to the psychiatrist whenever she will evaluate the patient. Jeremy Gillis M.D. DR: SARA JOB#: [id number] CC:
[2017-12-27] MEDS ORDERED: LORazepam 1mg tab ORAL SCH (12:45)
[2017-12-27] MEDS ORDERED: Haloperidol 5mg/ml Inj IM SCH (13:45)
--- NOTE | 2017-12-27 14:54 | General Progress Note ---
Progress Note Progress Note Afebrile so far today - PIC line out, no IV access. c/o agitation, burning up all over, nausea/emesis. No response to Ativan 1mg or haldol x 1 (1mg IM) Imp. possible withdrawal syndrome (off dilaudid, only on MS contin po) Plan: Dr. Camara to evaluate today; Dr. Gillis notified. Hopefully will improve and resume po intake by Rolando Lynn MD Dec 27, 2017 14:54
[2017-12-27] MEDS: LORazepam 1mg tab ORAL PRN (18:00)
--- NOTE | 2017-12-27 23:30 | General Progress Note ---
Assessment/Plan Assessment/Plan MDD Anxiety d/o Cymbalta 30mg qam Seroquel 25mg qhs the pt is more cooperative and participating Subjective Allergies: Coded Allergies: ATROPINE (Verified Allergy, Unknown, 08/20/17) DIPHENOXYLATE (Verified Allergy, Unknown, 08/20/17) KETOROLAC (Verified Allergy, Unknown, 08/20/17) Objective Last 24 Hour Vital Signs Date Time Temp Pulse Resp B/P (MAP) Pulse Ox O2 Delivery O2 Flow Rate FiO2 12/27/17 21:00 Room Air 12/27/17 20:00 99.6 89 18 116/76 (89) 98 99.6 12/27/17 16:00 97.8 87 20 121/68 (85) 99 97.8 12/27/17 15:29 98.5 105 20 114/71 (85) 97 98.5 12/27/17 12:00 99.7 99 20 121/64 (83) 97 99.7 12/27/17 09:00 Room Air 12/27/17 08:00 98.2 91 20 114/74 (87) 100 98.2 12/27/17 05:00 99.1 99.1 12/27/17 04:00 100.8 105 18 106/64 (78) 99 100.8 12/27/17 01:00 100.5 104 19 100.5 12/27/17 00:52 100.5 12/27/17 00:22 100.8 12/27/17 00:00 100.8 111 18 113/67 (82) 96 100.8 Intake and Output 12/26/17 12/27/17 19:00 07:00 Intake Total 1394.58 ml 1165.94 ml Output Total 1025 ml Balance 1394.58 ml 140.94 ml Intake Oral 240 ml 320 ml IV Total 1074.58 ml 825.94 ml Other 80 ml 20 ml Output Urine Total 650 ml Other 375 ml # Voids 2 # Bowel Movements 1 Laboratory Tests 12/27/17 04:00: White Blood Count 15.2#H, Red Blood Count 3.76L, Hemoglobin 11.4L, Hematocrit 34.0L, Mean Corpuscular Volume 90, Mean Corpuscular Hemoglobin 30.4, Mean Corpuscular Hemoglobin Concent 33.7, Red Cell Distribution Width 13.6, Platelet Count 315, Mean Platelet Volume 6.7, Neutrophils (%) (Auto) 79.9H, Lymphocytes ( %) (Auto) 9.0L, Monocytes (%) (Auto) 8.0, Eosinophils (%) (Auto) 2.4, Basophils (%) (Auto) 0.7, Urine Color Yellow, Urine Appearance Clear, Urine pH 8, Urine Specific [place] 1.010, Urine Protein Negative, Urine Glucose (UA) Negative, Urine Ketones Negative, Urine Blood Negative, Urine Nitrite Negative, Urine Bilirubin Negative, Urine Urobilinogen Normal, Urine Leukocyte Esterase 1+H, Urine RBC 0-2H, Urine WBC 2-4, Urine Squamous Epithelial Cells Occasional, Urine Amorphous Sediment ModerateH, Urine Bacteria Few, Sodium Level 137, Potassium Level 4.1, Chloride Level 101, Carbon Dioxide Level 30, Anion Gap 7, Blood Urea Nitrogen 14, Creatinine 0.8, Estimat Glomerular Filtration Rate > 60 , Glucose Level 98, Calcium Level 8.7 Height (Feet): 5 Height (Inches): 11.00 Weight (Pounds): 154 Nae Camara MD Dec 27, 2017 23:30
[2017-12-28] VITALS (7 sets, daily range): BP systolic 105–116; BP diastolic 64–73
[2017-12-28] MEDS: MS Contin 15mg tab ORAL SCH ×3 (05:16→21:31)
[2017-12-28 05:21] LABS: BASOPHILS % (AUTO) 0.9 % (0.0-2.0); EOSINOPHILS % (AUTO) 3.4 % (0.0-3.0); HEMATOCRIT 35.4 % (42.0-52.0); HEMOGLOBIN 11.7 G/DL (14.2-18.0); LYMPHOCYTES % (AUTO) 16.6 % (20.0-45.0); MEAN CORPUSCULAR VOLUME 90 FL (80-99); MONOCYTES % (AUTO) 12.3 % (1.0-10.0); NEUTROPHILS % (AUTO) 66.8 % (45.0-75.0); PLATELET COUNT 318 K/UL (150-450); RED BLOOD COUNT 3.95 M/UL (4.70-6.10); RED CELL DISTRIBUTION WIDTH 13.4 % (11.6-14.8); WHITE BLOOD COUNT 13.4 K/UL (4.8-10.8)
[2017-12-28 05:54] LABS: ANION GAP 6 mmol/L (5-15); BLOOD UREA NITROGEN 17 mg/dL (7-18); CALCIUM 9.7 MG/DL (8.5-10.1); CARBON DIOXIDE 29 MMOL/L (21-32); CHLORIDE 99 MMOL/L (98-107); CREATININE 0.9 MG/DL (0.55-1.30); SODIUM 134 MMOL/L (136-145)
[2017-12-28] MEDS ORDERED: DULoxetine 30mg cap ORAL SCH (09:00)
--- NOTE | 2017-12-28 09:50 | General Progress Note ---
Progress Note Progress Note AVSS Doing much better. Eating and functioning normally. Needed methadone 10mg po q12h per Dr. Camara Abdomen soft. arelis removed and steristrips applied. Gastrostomy removed [facility] ileo catheter removed - reenters pouch easily WBC down 13,400 All labs wnl [facility] ileo output 1060 Imp. doing well Plan: [facility] diet RN supervised [facility] self-intubations q3h Anticipate discharge in AM - supplies/instructions/f/u provided rx Cymbalta 60mg #14 one daily Seroquel 100mg #14 one qhs Ativan 1mg #30 q4h prn Rolando Webb MD Dec 28, 2017 09:50
[2017-12-28] MEDS ORDERED: NS Irrig 1000ml ONE (10:55)
[2017-12-28] MEDS ORDERED: Sterile Water For Irrig 2000ml IRRIG ONE (10:55)
[2017-12-28] MEDS: LORazepam 1mg tab ORAL PRN ×2 (11:44→17:31)
[2017-12-29] MEDS ORDERED: MORPHINE SULFAT15 MG PO (03:55)
[2017-12-29 04:00] VITALS: BP 135/57
[2017-12-29] MEDS: MS Contin 15mg tab ORAL SCH (05:55)
--- NOTE | 2017-12-31 14:22 | Discharge Summary ---
Discharge Summary Hospital Course Date of Admission Dec 17, 2017 at 12:49 Date of Discharge Dec 29, 2017 at 08:18 Admitting Diagnosis recurrent bowel obstruction KVNG Rogers is a 27 year old male who was admitted on Dec 17, 2017 at 12:49 for Recurrent Bowel Obstruction Consultations dr Gillis - pain specialist dr Camara -psychiatrist Procedures s/p 12/18/[address] Webb Laparotomy with revision of Stoll pouch stoma and access segment and restorationism of the intestinal collar. Hospital Course FINAL DIAGNOSES 1. Recurrent small bowel obstruction due to inability to self intubate his Stoll continent ileostomy. 2. Recent severe weight loss causing angulation and redundancy of the Stoll pouch access segment. 3. History of ulcerative colitis. 4. Status post multiple abdominal operations. 4.1. Total colectomy with ileoanal J-pouch as a 3-stage procedure over 1 year in 2013. 4.2. Resection of failed J-pouch with abdominoperineal proctectomy and creation of Gladys ileostomy on 11/14/2016 at [facility]. 4.3. Laparotomy with abdominal washout and evacuation of rectus hematoma related to drain site bleeding on 11/21/2016. 4.4. Creation of Stoll continent ileostomy with temporary catheter gastrostomy on 08/21/2017. 5. s/p Laparotomy with revision of Stoll pouch stoma and access segment and restorationism of the intestinal collar. Discharge Condition Upon Discharge: stable Discharge Disposition Patient was discharged to Home (01) Discharge Instructions Discharge Instructions Special Instructions I have been assigned to complete a D/C Summary on this account. I was not involved in the patient management Susan Coughlin NP Dec 31, 2017 14:22
== END 2017-12-29 08:18 | disposition home or self-care (01) | DRG 330 ==
LOC: EDBEDREQ 12:36 → EMR 12:45 → 3E 12:49 → EDBEDREQ 13:06
PROC: 0DH63UZ Insertion of Feeding Device into Stomach, Percutaneous Approach (ICD-10-PCS; principal; 2017-12-18 14:00)
PROC: 0DBB0ZZ Excision of Ileum, Open Approach (ICD-10-PCS; principal; 2017-12-18 14:00)
DX: K94.13 Enterostomy malfunction (principal); K56.699 Other intestinal obstruction unspecified as to partial versus complete obstruction; E46 Unspecified protein-calorie malnutrition; K56.7 Ileus, unspecified; J98.11 Atelectasis; E86.0 Dehydration; R00.0 Tachycardia, unspecified; Z68.21 Body mass index [BMI] 21.0-21.9, adult; G89.18 Other acute postprocedural pain; G89.4 Chronic pain syndrome; F32.9 Major depressive disorder, single episode, unspecified; F41.9 Anxiety disorder, unspecified; E61.1 Iron deficiency; R50.82 Postprocedural fever
CPT/HCPCS: 36415; 36569; 74177; 76937; 80048; 80053; 80307; 81001; 82607; 82728; 82746; 82962; 83540; 83550; 83690; 83735; 84100; 85007; 85025; 85610; 85730; 86850; 86900; 86901; 87040; 87070; 87086; 87181; 94003; 94150; 96374; 96375; 99285; J1815; J2405; J2765